=== PATIENT | male | born 1940 | race Asian ===

== ENCOUNTER 2024-09-03 09:05 | Emergency (ER) | payer OTHER, SELFPAY ==
[2024-09-03] VITALS (16 sets, daily range): BP systolic 137–160; BP diastolic 65–81; PULSE 92–103; RESP 16–18; TEMP 37.2; O2SAT 92–98
--- NOTE | 2024-09-03 09:31 | CRLHL7_ITS ---
For Patients: As a result of the 21st Century Cures Act, medical imaging exams and procedure reports are released immediately into your electronic medical record. You may view this report before your referring provider. If you have questions, please contact your health care provider. INDICATION: Left lower quadrant pain. Constipation. TECHNIQUE: Multiplanar CT examination of the abdomen and pelvis was performed after the administration of 68 mL Isovue 370 intravenous contrast. COMPARISON: None. FINDINGS: Motion degraded examination. Lower chest: No focal consolidation. Normal heart size. No pleural effusions or pneumothorax. Subsegmental and dependent atelectasis. Liver: Probable diffuse hepatic steatosis. Gallbladder: Unremarkable. Biliary: Unremarkable. Pancreas: Within normal limits. Spleen: Unremarkable. Adrenal glands: Unremarkable. Renal/ureters/bladder: Normal in size and symmetrically enhancing. No obstructive uropathy. No hydronephrosis or obstructive urinary calculi. Simple appearing renal hypodensities bilaterally, likely renal cysts. The ureters appear unremarkable. The bladder appears distended likely due to chronic outlet obstruction. Pelvis: Severe Prostatomegaly. Gastrointestinal: Small duodenal diverticulum. No bowel wall thickening or bowel obstruction. Normal appendix. Severe colorectal stool burden. No significant colonic diverticulosis. Vasculature: No aortic aneurysm. The portal vein remains patent. Mild atherosclerotic calcifications. Lymph nodes: No pathologic lymphadenopathy by size criteria. Peritoneum: No free fluid or pneumoperitoneum. No drainable fluid collections. Abdominal wall/soft tissues: Unremarkable. Bones: No acute osseous abnormalities. Multilevel degenerative changes of the visualized thoracolumbar spine. IMPRESSION: 1. Severe colorectal stool burden, compatible with constipation. 2. Severely enlarged prostate with suggestion of chronic outlet obstruction. 3. Otherwise, no other acute abdominopelvic pathology. Please note that all CT scans at this facility use dose modulation, iterative reconstruction, and/or weight-based dosing when appropriate to reduce radiation dose to as low as reasonably achievable. Dictated by Taras Gordillo MD @ 09/03/2024 11:34:20 AM (Electronically Signed)
--- NOTE | 2024-09-03 09:35 | ED.ABDPAIN ---
HPI - Abdominal Pain General Date Seen: 09/03/24 Chief Complaint: Abdominal Pain Stated Complaint: Bowel Movement Problems/Abd Pain Time Seen by Provider: 09/03/24 09:16 Source: patient Mode of arrival: ambulatory Limitations: language barrier History of Present Illness HPI narrative: Patient is an 84-year-old male presenting to the emergency department for constipation and abdominal pain. States he has been having issues with constipation for the past few weeks. Last abnormal bowel movement 3 weeks ago. This most recent bowel movement was a couple days ago that he states it was small and hard. States previously when he had constipation he came to the emergency department and an enema helped. Has been using stool softeners but only use them for week but she states on the box instructions said not to use for more than a week without doctor's orders. He is here with his son-in-law who states the patient total today pains during worsened that he needs to come to the emergency department. Denies fevers, chills, chest pain, shortness of breath, lightheadedness, dizziness, weakness, headache, vision changes, nausea/vomiting. Has been eating well. No other concerns noted. 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 Related Data Home Medications ?Medication ?Instructions ?Recorded ?Confirmed acetaminophen 325 mg capsule 325 mg PO Q6H PRN 09/03/24 09/03/24 amlodipine 10 mg tablet 10 mg PO DAILY 09/03/24 09/03/24 hydrochlorothiazide 25 mg tablet 12.5 mg PO DAILY 09/03/24 09/03/24 pravastatin 40 mg tablet 40 mg PO DAILY 09/03/24 09/03/24 tamsulosin 0.4 mg capsule 0.4 mg PO DAILY 09/03/24 09/03/24 Allergies Allergy/AdvReac Type Severity Reaction Status Date / Time No Known Drug Allergies Allergy Verified 09/03/24 11:04 Review of Systems Status of ROS Reports: 10 or more systems reviewed and unremarkable except as noted in History and below Exam Narrative: Exam Narrative: Const: Well-nourished, Well-developed, in mild distress Eyes: PERRL, no conjunctival injection, and symmetrical lids HENT: Atraumatic external nose and ears. Moist mucous membranes. Neck: Symmetric, trachea midline, No thyromegaly. CVS: RRR, No murmurs or gallops. Peripheral pulses 2+ and equal in all extremities RESP: Unlabored respiratory effort. Clear to auscultation bilaterally. GI: Mild lower abdominal tenderness worse on the left, lower abdominal distension, No rebound or guarding. MSK:Extremities w/o deformity, Normal Active ROM Skin: Warm, Dry. No rashes or lesions. Neuro: Normal Muscle tone, No focal neurological deficits. Psych: Awake, Alert, & Oriented x3. Appropriate mood and affect. Const: Vital Signs, click to edit/add: Vital Signs - 24 hr 09/03/24 09:09 09/03/24 11:44 09/03/24 11:56 Temperature 98.9 F 98.9 F Pulse Rate 98 Pulse Rate [Pulse Oximeter] 100 Respiratory Rate 16 18 Blood Pressure 137/65 Blood Pressure [Ri ght Upper Arm] 160/81 H Pulse Oximetry 97 95 96 Oxygen Delivery Me thod Room Air Course Vital Signs Vital signs: Initial Vital Signs Temperature 98.9 F 09/03/24 09:09 Temperature Source Temporal Artery Scan 09/03/24 09:09 Pulse Rate 100 09/03/24 09:09 Respiratory Rate 16 09/03/24 09:09 Blood Pressure 160/81 H 09/03/24 09:09 Blood Pressure Mean 107 H 09/03/24 09:09 Blood Pressure Position Sitting 09/03/24 09:09 Pulse Oximetry 97 09/03/24 09:09 Oxygen Delivery Method Room Air 09/03/24 09:09 Vital Signs Temperature 98.9 F 09/03/24 09:09 Pulse Rate 100 09/03/24 09:09 Respiratory Rate 16 09/03/24 09:09 Blood Pressure 160/81 H 09/03/24 09:09 Pulse Oximetry 97 09/03/24 09:09 Oxygen Delivery Method Room Air 09/03/24 09:09 Temperature 98.9 F 09/03/24 11:56 Pulse Rate 98 09/03/24 11:56 Respiratory Rate 18 09/03/24 11:56 Blood Pressure 137/65 09/03/24 11:56 Pulse Oximetry 96 09/03/24 11:56 Oxygen Delivery Method Room Air 09/03/24 09:09 Medications Administered Medications: Discontinued Medications Generic Name Dose Route Start Last Admin Trade Name Freq PRN Reason Stop Dose Admin Docusate Sodium/Benzocaine 5 ml 09/03/24 11:53 09/03/24 12:12 Docusate Sodium/Benzocaine 5 Ml Enema OR 09/03/24 11:54 5 ml ONCE ONE Administration Lactated Ringer's 1,000 mls @ 1,000 mls/hr 09/03/24 10:41 09/03/24 12:38 Lactated Ringers 1000 Ml IV 09/03/24 11:40 Infused .Q1H ONE Infusion Lidocaine HCl 6 ml 09/03/24 11:44 09/03/24 11:25 Lidocaine Hcl 2 % Jelly (Top) Sterile UR 09/03/24 11:45 6 ml ONCE ONE Administration MDM - Abdominal Pain MDM Narrative Medical decision making narrative: Patient is an 84-year-old male presenting to the emergency department for constipation abdominal pain. Will do a CT scan to better evaluate his pain and constipation. Also order CBC, CMP. Considering his age abdominal pain can be an abnormal presentation for ACS I will order an EKG and troponin. Lab work returned with white blood cell count of 14.64. Her he does meet SIRS criteria so lactate and blood cultures were added. Lactate came back elevated at 3.6 in fluids were given. Rest of CMP and CBC shows no concerning abnormalities. Creatinine appears to be at baseline. Although BUN does appear elevated. He is usually around 26 to 33 and is 41 today. EKG was reviewed by myself along with the troponin which showed no concerning findings. CT scan reviewed by myself and the radiologist does show some severe constipation he has also has quite a bit of urinary retention likely due to his enlarged prostate. The prostate does appear irregular in shape. His son-in-law does state he remembers hearing the patient having prostate cancer in the past but cannot say for certain. I had nursing staff place a Senior and 700 mL of fluid came out. I then did the rectal disimpaction and got out a large amount of stool. We will now do an enema. Patient states he is feeling much better and his symptoms have fully resolved after the Senior was placed. The urinary obstruction is likely the cause of his elevated BUN. After the Senior was placed we monitor for another 2 hours. He was also given a L of fluid. He had about 200 mL more of urinary drainage after this. His lactate has gone from 3.6 down to 2.1 and he is asymptomatic at this time. I see no other clear signs of infection. I do believe the urinary retention was causing most of his issues including the constipation as he could have been blocking his bladder. I recommended that he follow-up with his primary care provider in will leave the Senior in place until then. The patient and his son-in-law agree with this plan. At this point he is completely asymptomatic and doing well and is safe for discharge. I did inform to continue to continue to use stool softeners. Lab Data Labs: Lab Results 09/03/24 09/03/24 09/03/24 Range/Units 09:31 10:05 10:18 WBC 14.64 H (4.50-11.00) K/uL RBC 4.48 (4.30-5.90) m/uL Hgb 14.2 (13.5-17.5) gm/dL Hct 41.4 (37.0-53.0) % MCV 92 (80-100) fL MCH 32 (26-34) pg MCHC 34 (32-36) gm/dL RDW Coeff of Julissa 12.9 (11.5-15.5) % Plt Count 266 (140-440) K/uL Neut % (Auto) 83.2 H (42.0-72.0) % Lymph % (Auto) 9.5 L (20-44) % [place] % (Auto) 7.0 (0.0-11.0) % Eos % (Auto) 0.1 (0.0-7.0) % Baso % (Auto) 0.1 (0.0-3.0) % Neut # (Auto) 12.20 H (1.7-7.0) K/uL Lymph # (Auto) 1.40 (0.90-2.90) K/uL [place] # (Auto) 1.00 H (0.00-0.90) K/UL Eos # (Auto) 0.00 (0.00-0.50) K/uL Baso # (Auto) 0.00 (0.00-0.30) K/uL Abs Immat Gran (auto) 0.00 (0.00-0.30) K/uL Imm/Tot Granulo (auto) 0.1 % Sodium 136 (135-149) mmol/L Potassium 3.2 L (3.6-5.1) mmol/L Chloride 96 (96-114) mmol/L Carbon Dioxide 28 (20-32) mmol/L Anion Gap 12 (7-15) mEq/L BUN 41 H (7-30) mg/dL Creatinine 1.3 (0.5-1.5) mg/dL Estimated GFR 54 ml/min Glucose 163 H (60-115) mg/dL Lactate (0.5-1.9) mmol/L Calcium 9.5 (8.4-10.6) mg/dL Total Bilirubin 1.0 (0.1-1.5) mg/dL AST 36 H (12-35) U/L ALT 22 (4-50) U/L Alkaline Phosphatase 77 (40-150) U/L Troponin I 0.01 (0.01-0.04) ng/mL Total Protein 7.9 (6.0-8.3) g/dL Albumin 4.8 (3.3-5.0) g/dL Urine Color (Yellow) Urine Appearance (Clear) Urine pH (5.0-8.5) Ur Specific Eleva (1.000-1.030) Urine Protein (Negative) Urine Glucose (UA) (Negative) Urine Ketones (Negative) Urine Blood (Negative) Urine Nitrite (Negative) Urine Bilirubin (Negative) Urine Urobilinogen (0.2-1.0) Ur Leukocyte Esterase (Negative) Urine RBC (0-2) Urine WBC (0-5) Ur Squamous Epith Cells (None-Few) Urine Bacteria (None) Lab Acknowledgement New Spec Needed POC Creatinine 1.5 H (0.6-1.3) mg/dl 09/03/24 09/03/24 09/03/24 Range/Units 10:32 11:50 12:47 WBC (4.50-11.00) K/uL RBC (4.30-5.90) m/uL Hgb (13.5-17.5) gm/dL Hct (37.0-53.0) % MCV (80-100) fL MCH (26-34) pg MCHC (32-36) gm/dL RDW Coeff of Julissa (11.5-15.5) % Plt Count (140-440) K/uL Neut % (Auto) (42.0-72.0) % Lymph % (Auto) (20-44) % [place] % (Auto) (0.0-11.0) % Eos % (Auto) (0.0-7.0) % Baso % (Auto) (0.0-3.0) % Neut # (Auto) (1.7-7.0) K/uL Lymph # (Auto) (0.90-2.90) K/uL [place] # (Auto) (0.00-0.90) K/UL Eos # (Auto) (0.00-0.50) K/uL Baso # (Auto) (0.00-0.30) K/uL Abs Immat Gran (auto) (0.00-0.30) K/uL Imm/Tot Granulo (auto) % Sodium (135-149) mmol/L Potassium (3.6-5.1) mmol/L Chloride (96-114) mmol/L Carbon Dioxide (20-32) mmol/L Anion Gap (7-15) mEq/L BUN (7-30) mg/dL Creatinine (0.5-1.5) mg/dL Estimated GFR ml/min Glucose (60-115) mg/dL Lactate 3.6 H 2.1 H (0.5-1.9) mmol/L Calcium (8.4-10.6) mg/dL Total Bilirubin (0.1-1.5) mg/dL AST (12-35) U/L ALT (4-50) U/L Alkaline Phosphatase (40-150) U/L Troponin I (0.01-0.04) ng/mL Total Protein (6.0-8.3) g/dL Albumin (3.3-5.0) g/dL Urine Color Yellow (Yellow) Urine Appearance Clear (Clear) Urine pH 7.0 (5.0-8.5) Ur Specific Eleva 1.015 (1.000-1.030) Urine Protein Negative (Negative) Urine Glucose (UA) Negative (Negative) Urine Ketones Negative (Negative) Urine Blood 2+ A (Negative) Urine Nitrite Negative (Negative) Urine Bilirubin Negative (Negative) Urine Urobilinogen 0.2 (0.2-1.0) Ur Leukocyte Esterase Negative (Negative) Urine RBC 50-100 A (0-2) Urine WBC 0-2 (0-5) Ur Squamous Epith Cells None (None-Few) Urine Bacteria None (None) Lab Acknowledgement POC Creatinine (0.6-1.3) mg/dl Imaging Data CT scan abdomen and pelvis: Attestation: I have reviewed the pertinent imaging results. Radiologist's impression: 1. Severe colorectal stool burden, compatible with constipation. 2. Severely enlarged prostate with suggestion of chronic outlet obstruction. 3. Otherwise, no other acute abdominopelvic pathology. Please note that all CT scans at this facility use dose modulation, iterative reconstruction, and/or weight-based dosing when appropriate to reduce radiation dose to as low as reasonably achievable. Dictated by Taras Gordillo MD @ 09/03/2024 11:34:20 AM ECG Data Attestation: I personally reviewed and interpreted this ECG as follows: Prior ECG tracings: not available for review Interpretation: Sinus tachycardia with a rate of 106 beats per minute, normal intervals, normal axis, no ST or T-wave abnormalities. Discharge Plan Discharge Clinical Impression: Lower urinary tract obstruction, Enlarged prostate Constipation Qualifiers: Constipation type: unspecified constipation type Qualified Code(s): K59.00 - Constipation, unspecified Patient Disposition: Home, Self-Care Condition: Improved Instructions: Constipation (DC), Enlarged Prostate (BPH) (ED) Additional Instructions: I believe your constipation and pain was all related to your urinary retention. You have a large prostate that is likely blocking your urethra. Follow-up with the primary care provider as soon as possible about your urinary retention. They may refer you to urology. Return to emergency department for new or worsening symptoms. Prescriptions: No Action hydrochlorothiazide 25 mg tablet 12.5 mg PO DAILY tamsulosin 0.4 mg capsule 0.4 mg PO DAILY amlodipine 10 mg tablet 10 mg PO DAILY pravastatin 40 mg tablet 40 mg PO DAILY acetaminophen 325 mg capsule 325 mg PO Q6H PRN Follow Up/Referrals: Provider,Not a Local [Primary Care Provider] - Stand Alone Forms: [facility] Info Instructions
[2024-09-03 10:11] LABS: Basophils Percent Auto 0.1 % (0.0-3.0); Eosinophils Percent Auto 0.1 % (0.0-7.0); Hematocrit 41.4 % (37.0-53.0); Hemoglobin* 14.2 gm/dL (13.5-17.5); Immature Granulocytes Pct Auto 0.1 %; Lymphocytes Percent Auto 9.5 % (20-44); Mean Corpuscular HGB Conc 34 gm/dL (32-36); Mean Corpuscular Hemoglobin 32 pg (26-34); Mean Corpuscular Volume 92 fL (80-100); Neutrophils Percent Auto 83.2 % (42.0-72.0); Platelet Count* 266 K/uL (140-440); RDW Coefficient of Variation % 12.9 % (11.5-15.5); Red Blood Count 4.48 m/uL (4.30-5.90); White Blood Count* 14.64 K/uL (4.50-11.00)
[2024-09-03 10:12] LABS: Creatinine, Point-of-Care* 1.5 mg/dl (0.6-1.3)
[2024-09-03 10:16] LABS: Slide Review Reflex No
[2024-09-03 10:22] LABS: Lab Add On Test New Spec Needed
[2024-09-03 10:24] LABS: Albumin* 4.8 g/dL (3.3-5.0); Chloride* 96 mmol/L (96-114)
[2024-09-03 10:25] LABS: Potassium* 3.2 mmol/L (3.6-5.1); Sodium* 136 mmol/L (135-149)
[2024-09-03 10:27] LABS: Anion Gap 12 mEq/L (7-15); Carbon Dioxide* 28 mmol/L (20-32); Creatinine* 1.3 mg/dL (0.5-1.5); Estimated Glomerular Filt Rate 54 ml/min
[2024-09-03 10:28] LABS: Alanine Aminotransferase* 22 U/L (4-50); Alkaline Phosphatase* 77 U/L (40-150); Aspartate Amino Transferase* 36 U/L (12-35); Blood Urea Nitrogen* 41 mg/dL (7-30); Calcium* 9.5 mg/dL (8.4-10.6); Glucose* 163 mg/dL (60-115); Total Protein* 7.9 g/dL (6.0-8.3)
[2024-09-03 10:38] LABS: Lactate* 3.6 mmol/L (0.5-1.9)
[2024-09-03 10:40] LABS: Troponin I* 0.01 ng/mL (0.01-0.04)
[2024-09-03] MEDS: LACTATED RINGERS 1000 ML 1,000 ML IV (11:01)
[2024-09-03] MEDS: lidocaine HCL 2 % JELLY (TOP) STERILE 6 ML UR (11:25)
[2024-09-03 11:59] LABS: Appearance Urine Clear (Clear); Bilirubin Urine Negative (Negative); Blood Urine 2+ (Negative); Color Urine Yellow (Yellow); Glucose Urine Negative (Negative); Ketones Urine Negative (Negative); Leukocyte Esterase Urine Negative (Negative); Nitrite Urine Negative (Negative); Protein Urine Negative (Negative); Specific Gravity Urine 1.015 (1.000-1.030); Urobilinogen Urine 0.2 (0.2-1.0)
[2024-09-03] MEDS: DOCUSATE SODIUM/BENZOCAINE 5 ML ENEMA PR (12:12)
[2024-09-03 12:17] LABS: RBC Urine 50-100 (0-2); WBC Urine 0-2 (0-5)
[2024-09-03 12:54] LABS: Lactate Sepsis w/Reflex* 2.1 mmol/L (0.5-1.9)
== END 2024-09-03 14:08 | disposition home or self-care (01) ==
PROVIDERS: Emergency Provider Student in an Organized Health Care Education/Training Program
DX: N13.9 Obstructive and reflux uropathy, unspecified (principal); N40.1 Benign prostatic hyperplasia with lower urinary tract symptoms
CPT/HCPCS: 36415; 74177; 80053; 81001; 82565; 83605; 84484; 85025; 87040; 93005; 94761; 99285; A9270; J7120; Q9967

== ENCOUNTER 2024-09-14 15:46 | Outpatient (CLI) | payer OTHER, SELFPAY | END 2024-09-14 15:47 | disposition home or self-care (01) | LOC: LKVREF 15:50 | PROVIDERS: PCP Family Medicine; Visit Provider Family Medicine | DX: D64.9 Anemia, unspecified (principal); E03.9 Hypothyroidism, unspecified; R53.83 Other fatigue; I48.91 Unspecified atrial fibrillation | CPT/HCPCS: 80048; 84443 ==

== ENCOUNTER 2024-09-16 16:28 | Outpatient (CLI) | payer OTHER, SELFPAY | END 2024-09-16 16:29 | disposition home or self-care (01) | LOC: NFLDREF 09-25 05:51 | PROVIDERS: PCP Family Medicine; Referring Provider Family Medicine; Visit Provider Family Medicine | DX: R33.9 Retention of urine, unspecified (principal); R82.90 Unspecified abnormal findings in urine | CPT/HCPCS: 87086 ==

== ENCOUNTER 2024-12-26 21:25 | Emergency (ER) | payer OTHER, SELFPAY ==
--- OUTSIDE RECORDS SUMMARY | 2024-12-26 21:27 | XMS_ITS ---
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
--- OUTSIDE RECORDS SUMMARY | 2024-12-26 21:27 | XMS_ITS | Encounter Summary ---
Author Organization [facility] Address [address] [facility] [place] [address] Care Team Providers Care Fish Grader Name Role Phone No Ref-Primary, Physician Primary Care Provider Estefani Bob DO Primary Care Provider [phone] Encounter Details Date Type Department Care Team (Late st Contact Info) Description 09/03/2024 External Order Results [facility] [address] [place] [address] Outside, Provider Social History Tobacco Use Types Packs/Day Years Used Date Smoking Tobacco: Never Alcohol Use Standard Drinks/Week Comments No 0 (1 standard drink = 0.6 oz pur e alcohol) Adolescent Education Answer Date Record ed Getting School Help Needed Not on file 06/09 Sex and Gender Information Value Date Recorded Sex Assigned at Not on file Legal Sex Male 4:30 AM ASSOCIATE PROGRAMMER Gender Identity Not on file Sexual Orientation Not on file documented as of this encounter Plan of Treatment Not on file documented as of this encounter Procedures Procedure Name Priority Date/Time Associated Diagnosis Comments LACTIC ACID WHOLE BLOOD Routine 09/03/2024 12:47 PM ASSOCIATE PROGRAMMER ROUTINE UA WITH MICROSCOPIC Routine 09/03/2024 11:50 AM ASSOCIATE PROGRAMMER EXTERNAL CULTURE RESULTS Routine 09/03/2024 10:32 AM ASSOCIATE PROGRAMMER LACTIC ACID WHOLE BLOOD Routine 09/03/2024 10:32 AM ASSOCIATE PROGRAMMER CBC WITH PLATELETS & DIFFERENTIAL Routine 09/03/2024 10:05 AM ASSOCIATE PROGRAMMER EXTERNAL LAB RESULTS Routine 09/03/2024 10:05 AM ASSOCIATE PROGRAMMER HEPATIC FUNCTION PANEL Routine 09/03/2024 10:05 AM ASSOCIATE PROGRAMMER BASIC METABOLIC PANEL Routine 09/03/2024 10:05 AM ASSOCIATE PROGRAMMER CREATININE Routine 09/03/2024 9:31 AM ASSOCIATE PROGRAMMER documented in this encounter Results * (ABNORMAL) Lactic acid whole blood (09/03/2024 12:47 PM ASSOCIATE PROGRAMMER) Pathologist [facility] Lactic Acid (External) 2.1(H) 0.5 - 1.9 mmol/L NON-INTERFACED (ONBASE SCANS) Comment:Lactate Sepsis Blood BLOOD SPECIMEN / Unknown 09/03/2024 12:47 PM ASSOCIATE PROGRAMMER Narrative JAIMEE PFT - 09/15/2024 2:03 PM ASSOCIATE PROGRAMMER Verified by Chad Osei on 09/15/2024. us Provider Outside LAB - BLOOD ORDERABLES Edited R esult - Final JAIMEE PFT NON-INTERFACED (ONBASE SCANS) * (ABNORMAL) UA with Microscopic (09/03/2024 11:50 AM ASSOCIATE PROGRAMMER) Pathologist [facility] Color Urine (External) Yellow Yellow NON-INTERFAC ED (ONBASE SCANS) Appearance Urine (External) Clear Clear NON-INTERFAC ED (ONBASE SCANS) Glucose Urine (External) Negative Negative NON-INTERFAC ED (ONBASE SCANS) Bilirubin Urine (External) Negative Negative NON-INTERFAC ED (ONBASE SCANS) Ketones Urine (External) Negative Negative NON-INTERFAC ED (ONBASE SCANS) Specific [place] Urine (External) 1.015 1.000 - 1.030 NON-INTERFAC ED (ONBASE SCANS) Blood Urine (External) 2+(A) Negative NON-INTERFAC ED (ONBASE SCANS) pH Urine (External) 7.0 5.0 - 8.5 NON-INTERFAC ED (ONBASE SCANS) Protein Albumin Ur (External) Negative Negative NON-INTERFAC ED (ONBASE SCANS) Urobilinogen (External) 0.2 0.2 - 1.0 NON-INTERFAC ED (ONBASE SCANS) Nitrites Urine (External) Negative Negative NON-INTERFAC ED (ONBASE SCANS) Leukocyte Esterase Urine (External) Negative Negative NON-INTERFAC ED (ONBASE SCANS) RBC Urine (External) 50-100(A) 0 - 2 NON-INTERFAC ED (ONBASE SCANS) WBC Urine (External) 0-2 0 - 5 NON-INTERFAC ED (ONBASE SCANS) Squamous Epithelial Urine (External) None None-few NON-INTERFAC ED (ONBASE SCANS) Bacteria Urine (External) None None NON-INTERFAC ED (ONBASE SCANS) Urine 09/03/2024 11:5 0 AM ASSOCIATE PROGRAMMER Narrative BREEZE PFT - 09/15/2024 2:18 PM ASSOCIATE PROGRAMMER Verified by Carol Anthony on 09/15/2024. us Provider Outside LAB - URINE ORDERABLES Edited R esult - Final BREEZE PFT NON-INTERFACED (ONBASE SCANS) * External Culture Results (09/03/2024 10:32 AM ASSOCIATE PROGRAMMER) Scan Culture Results (External) See Scanned Report NON-INTERFACE D (ONBASE SCANS) Comment:Blood Culture Final 09/03/2024 10:3 2 AM ASSOCIATE PROGRAMMER Narrative BREEZE PFT - 09/15/2024 2:03 PM ASSOCIATE PROGRAMMER Verified by Chad Osei on 09/15/2024. us Provider Outside LABORATORY Edited Result - Final BREEZE PFT NON-INTERFACED (ONBASE SCANS) * (ABNORMAL) Lactic acid whole blood (09/03/2024 10:32 AM ASSOCIATE PROGRAMMER) Lactic Acid (External) 3.6(H) 0.5 - 1.9 mmol/L NON-INTERFACED (ONBASE SCANS) Blood BLOOD SPECIMEN / Unknown 09/03/2024 10:32 AM ASSOCIATE PROGRAMMER Preston HERMOSILLO PFT - 09/15/2024 2:03 PM ASSOCIATE PROGRAMMER Verified by Chad Osei on 09/15/2024. us Provider Outside LAB - BLOOD ORDERABLES Edited R esult - Final JAIMEE PFT NON-INTERFACED (ONBASE SCANS) * External Lab Results (09/03/2024 10:05 AM ASSOCIATE PROGRAMMER) Troponin I (External) 0.01 0.01 - 0.04 NG/Ml NON-INTERFACED (ONBASE SCANS) 09/03/2024 10:0 5 AM ASSOCIATE PROGRAMMER Narrative HAFSAE PFT - 09/15/2024 2:18 PM ASSOCIATE PROGRAMMER Verified by Carol Anthony on 09/15/2024. us Provider Outside LABORATORY Edited Result - Final JAIMEE PFT NON-INTERFACED (ONBASE SCANS) * (ABNORMAL) CBC with Platelets & Differential (09/03/2024 10:05 AM ASSOCIATE PROGRAMMER) WBC Count (External) 14.64(H) 4.50 - 11.00 K/uL NON-INTERFACE D (ONBASE SCANS) RBC Count (External) 4.48 4.30 - 5.90 m/uL NON-INTERFACE D (ONBASE SCANS) Hemoglobin (External) 14.2 13.5 - 17.5 gm/dL NON-INTERFACE D (ONBASE SCANS) Hematocrit (External) 41.4 37.0 - 53.0 % NON-INTERFACE D (ONBASE SCANS) MCV (External) 92 80 - 100 fL NON-INTERFACE D (ONBASE SCANS) MCH (External) 32 26 - 34 ML NON-INTERFACE D (ONBASE SCANS) MCHC (External) 34 32 - 36 gm/dL NON-INTERFACE D (ONBASE SCANS) Platelet Count (External) 266 140 - 440 K/uL NON-INTERFACE D (ONBASE SCANS) RDW (External) 12.9 11.5 - 15.5 % NON-INTERFACE D (ONBASE SCANS) % Neutrophils (External) 83.2(H) 42.0 - 72.0 % NON-INTERFACE D (ONBASE SCANS) % Lymphocytes (External) 9.5(L) 20 - 44 % NON-INTERFACE D (ONBASE SCANS) % Monocytes (External) 7.0 0.0 - 11.0 % NON-INTERFACE D (ONBASE SCANS) % Eosinophils (External) 0.1 0.0 - 7.0 % NON-INTERFACE D (ONBASE SCANS) % Basophils (External) 0.1 0.0 - 3.0 % NON-INTERFACE D (ONBASE SCANS) % Immature Granulocytes (External) 0.1 % NON-INTERFACE D (ONBASE SCANS) Absolute Neutrophils (External) 12.20(H) 1.7 - 7.0 K/uL NON-INTERFACE D (ONBASE SCANS) Absolute Lymphocytes (External) 1.40 0.90 - 2.90 K/uL NON-INTERFACE D (ONBASE SCANS) Absolute Monocytes (External) 1.00(H) 0.00 - 0.90 K/UL NON-INTERFACE D (ONBASE SCANS) Absolute Eosinophils (External) 0.00 0.00 - 0.50 K/uL NON-INTERFACE D (ONBASE SCANS) Absolute Basophils (External) 0.00 0.00 - 0.30 K/uL NON-INTERFACE D (ONBASE SCANS) Absolute Immature Granulocytes (External) 0.00 0.00 - 0.30 K/uL NON-INTERFACE D (ONBASE SCANS) Blood BLOOD SPECIMEN / Unknown 09/03/2024 10:05 AM ASSOCIATE PROGRAMMER Narrative JAIMEE PFT - 09/15/2024 2:18 PM ASSOCIATE PROGRAMMER Verified by Carol Anthony on 09/15/2024. us Provider Outside LAB - BLOOD ORDERABLES Klaus R esult - Final JAIMEE PFT NON-INTERFACED (ONBASE SCANS) * (ABNORMAL) Basic metabolic panel (09/03/2024 10:05 AM ASSOCIATE PROGRAMMER) Sodium (External) 136 135 - 149 mmol/L NON-INTERFACED (ONBASE SCANS) Potassium (External) 3.2(L) 3.6 - 5.1 mmol/L NON-INTERFACED (ONBASE SCANS) Chloride (External) 96 96 - 114 mmol/L NON-INTERFACED (ONBASE SCANS) CO2 (External) 28 20 - 32 mmol/L NON-INTERFACED (ONBASE SCANS) Anion Gap (External) 12 7 - 15 mEq/L NON-INTERFACED (ONBASE SCANS) Urea Nitrogen (External) 41(H) 7 - 30 mg/dL NON-INTERFACED (ONBASE SCANS) Creatinine (External) 1.3 0.5 - 1.5 mg/dL NON-INTERFACED (ONBASE SCANS) GFR Estimated (External) 54 mL/min NON-INTERFACED (ONBASE SCANS) Calcium (External) 9.5 8.4 - 10.6 mg/dL NON-INTERFACED (ONBASE SCANS) Glucose (External) 163(H) 60 - 115 mg/dL NON-INTERFACED (ONBASE SCANS) Blood BLOOD SPECIMEN / Unknown 09/03/2024 10:05 AM ASSOCIATE PROGRAMMER Narrative JAIMEE PFT - 09/15/2024 2:18 PM ASSOCIATE PROGRAMMER Verified by Carol Anthony on 09/15/2024. us Provider Outside LAB - BLOOD ORDERABLES Edited R esult - Final JAIMEE PF NON-INTERFACED (ONBASE SCANS) * (ABNORMAL) Hepatic function panel (09/03/2024 10:05 AM ASSOCIATE PROGRAMMER) Protein Total (External) 7.9 6.0 - 8.3 g/dL NON-INTERFACED (ONBASE SCANS) Albumin (External) 4.8 3.3 - 5.0 g/dL NON-INTERFACED (ONBASE SCANS) Bilirubin Total (External) 1.0 0.1 - 1.5 mg/dL NON-INTERFACED (ONBASE SCANS) AST (External) 36(H) 12 - 35 U/L NON-INTERFACED (ONBASE SCANS) ALT (External) 22 4 - 50 U/L NON- INTERFACED (ONBASE SCANS) Alk Phosphatase (External) 77 40 - 150 U/L NON-INTERFACED (ONBASE SCANS) Blood BLOOD SPECIMEN / Unknown 09/03/2024 10:05 AM ASSOCIATE PROGRAMMER Narrative [facility]ZE PFT - 09/15/2024 2:18 PM ASSOCIATE PROGRAMMER Verified by Carol Anthony on 09/15/2024. Provider Outside LAB - BLOOD ORDERABLES Edited R [employer] Active-Semi NILSONEZFariha PFT NON-INTERFACED (ONBASE SCANS) * (ABNORMAL) Creatinine (09/03/2024 9:31 AM ASSOCIATE PROGRAMMER) Creatinine (External) 1.5(H) 0.6 - 1.3 mg/dL NON-INTERFACED (ONBASE SCANS) Blood BLOOD SPECIMEN / Unknown 09/03/2024 9:31 AM ASSOCIATE PROGRAMMER Narrative BREEZE PFT - 09/15/2024 2:03 PM ASSOCIATE PROGRAMMER Verified by Chad Osei on 09/15/2024. Provider Outside LAB - BLOOD ORDERABLES Edited R [employer] JAIMEE PFT NON-INTERFACED (ONBASE SCANS) documented in this encounter Visit Diagnoses Not on filedocumented in this encounter Care Teams Fish Grader Relationship Specialty Start Date End Date No Ref-Primary, Physician PCP - General 09/05/24 11/17/24 [place] [address] [place] [address] PCP - General Family Medicine 11/18/24 documented as of this encounter
--- OUTSIDE RECORDS SUMMARY | 2024-12-26 21:27 | XMS_ITS | Clinical Summary ---
Author Organization [facility] Address [address] [facility] [place] [address] Care Team Providers Care Business Support Professional Name Role Phone Estefani Bob DO Primary Care Provider [phone] Allergies Active Allergy Reactions Criticality Noted Date Comments No Known Drug Allergy 06/09/2003 Medications amLODIPine (NORVASC) 10 MG tablet Take 10 mg by mouth every evening. Active cyanocobalamin (VITAMIN B-12) 1000 MCG tablet Take 1,000 mcg by mouth every evening. Active pravastatin (PRAVACHOL) 40 MG tablet Take 40 mg by mouth every evening. Active tamsulosin (FLOMAX) 0.4 MG capsule Take 0.4 mg by mouth every evening. Active niacin 500 MG tablet Take 500 mg by mouth every evening. Active metoprolol succinate ER (TOPROL XL) 25 MG 24 hr tabletIndications :Atrial fibrillation with RVR (H) Take 0.5 tablets (12.5 mg) by mouth daily. 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 Provider to review and confirm. Encounters Date Type Department Care Team Description 11/18/2024 9:52 AM CDT - 11/20/2024 4:25 PM CDT Hospital Encounter [facility] [place] [address] [facility] [address] [place] [address] Arian Rodriguez MD Singla, Manit, MD Zellmer, Lucas J, MD Atrial fibrillation with RVR (H) (Primary Dx); Acute UTI; Acute kidney injury Discharge Disposition: Home or Self Care 11/18/2024 Travel from Last 3 Months Immunizations Name Administration Dates Next Due Influenza (IIV3) PF 06/17/2006,07/19/2004,2002 Influenza Vaccine 65+ (Fluzone HD) 06/24/2020 Pneumococcal 23 valent 04/30/2006 TD,PF 7+ (Tenivac) 02/22/2010 Family History Medical History Relation Comments Family History Negative Daughter b.1968/b .1967/b.1966 Family History Negative Father at age 38, in [place] Family History Negative Mother at age 81, natural causes Family History Negative Sister b.1933/b .1940 Family History Negative Son b.1972/b .1968 Relation Status Comments Daughter Father Mother Sister Son Social History Tobacco Use Types Packs/Day Years Used Date Smoking Tobacco: Never Alcohol Use Standard Drinks/Week Comments No 0 (1 standard drink = 0.6 oz pur e alcohol) Adolescent Education Answer Date Record ed Getting School Help Needed Not on file 06/09 Food Insecurity Answer Date Recorded Within the past 12 months, d id you worry that your food would run out before you got money to buy more? No 11/18/2024 Within the past 12 months, d id the food you bought just not last and you didn t have money to get more? No 11/18/2024 Housing Stability Answer Date Recorded Do you have housing? (Karenin g is defined as stable permanent housing and does not include staying outside in a car, in a tent, in an abandoned building, in an overnight intermediate, or couch-surfing.) No 11/18/2024 Are you worried about losing your housing? Yes 11/18/2024 Financial Resource Strain Answer Date R ecorded Within the past 12 months, h ave you or your family members you live with been unable to get utilities (heat, electricity) when it was really needed? No 11/18/2024 Transportation Needs Answer Date Record ed Within the past 12 months, h as lack of transportation kept you from medical appointments, getting your medicines, non-medical meetings or appointments, work, or from getting things that you need? No 11/18/2024 Interpersonal Safety Answer Date Record ed Do you feel physically and e motionally safe where you currently live? No 11/18/2024 Within the past 12 months, h ave you been hit, slapped, kicked or otherwise physically hurt by someone? No 11/18/2024 Within the past 12 months, h ave you been humiliated or emotionally abused in other ways by your partner or ex-partner? 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 Gender Identity Not on file Sexual Orientation Not on file Last Filed Vital Signs Vital Sign Reading Time Taken Comments Blood Pressure 106/53 11/20/2024 11:41 AM CDT Pulse 58 11/20/2024 11:41 AM CDT Temperature 36.7 C (98 F) 11/20/2024 11:41 AM CDT Respiratory Rate 16 11/20/2024 11:4 1 AM CDT Oxygen Saturation 95% 11/20/2024 11: 41 AM CDT Inhaled Oxygen Concentration - - Weight 47.1 kg (103 lb 13.4 oz) 11/18/2024 5:01 PM CDT Height 160 cm (5' 3) 11/18/2024 5:01 PM CDT Body Mass Index 18.39 11/18/2024 5:01 PM CDT Plan of Treatment Health Maintenance Due Date Last Done Comments ADVANCE CARE PLANNING 1940 ANNUAL REVIEW OF HM ORDERS 1939 CT COLONOGRAPHY 1939 FLEX SIG 1939 sDNA (Cologuard) 1939 COLONOSCOPY 1949 ZOSTER IMMUNIZATION (1 of 2) 1989 FALL RISK ASSESSMENT 2004 LIPID 06/08/2010 03/08/2010, 06, 08/04/2007, Additional history exists COLORECTAL CANCER SCREENING 02/24/2011 FIT 02/24/2011 02/24/2010 RSV VACCINE (1 - 1-dose 75+ series) 2014 Pneumococcal Vaccine: 50+ Years (2 of 2 - PPSV23) 06/30/2015 05/05/2015, 04/30/2006 COVID-19 Vaccine ( season) 2024 07/13/2022, 06/15/2021, 10/04/2020, Additional history exists PHQ-2 (once per calendar year) 2024 MEDICARE ANNUAL WELLNESS VISIT 01/22/2025 01/23/2024, 01/03/2023, 10/23/2021, Additional history exists ALT 02/18/2025 11/18/2024, 08/26, 09/03/2024, Additional history exists BMP 11/20/2025 11/20/2024, 10/25, 11/18/2024, Additional history exists DTAP/TDAP/TD IMMUNIZATION (2 - Td or Tdap) 01/29/2033 01/29/2023, 02/22/2010 INFLUENZA VACCINE Completed 06/19/2024, , 07/04/2023, Additional history exists HPV IMMUNIZATION Aged Out No longer e ligible based on patient's age to complete this topic MENINGITIS IMMUNIZATION Aged Out No l onger eligible based on patient's age to complete this topic Procedures Procedure Name Priority Date/Time Associated Diagnosis Comments CBC WITH PLATELETS Routine 11/20/2024 9: 42 AM CDT BASIC METABOLIC PANEL Routine 11/20/2024 9:42 AM CDT PHOSPHORUS Routine 11/20/2024 9:42 AM CDT MAGNESIUM Routine 11/20/2024 9:42 AM CDT URINE CULTURE Routine 11/19/2024 9:27 AM CDT UA MACROSCOPIC WITH REFLEX TO MICRO AND CULTURE Routine 11/19/2024 9:27 AM CDT EKG 12-LEAD, TRACING ONLY STAT 11/19/2024 9:22 AM CDT MAGNESIUM Routine 11/19/2024 9:20 AM CDT PHOSPHORUS Routine 11/19/2024 9:20 AM CDT CBC WITH PLATELETS Routine 11/19/2024 9: 20 AM CDT BASIC METABOLIC PANEL Routine 11/19/2024 9:20 AM CDT MAGNESIUM STAT 11/18/2024 8:28 PM CDT POTASSIUM STAT 11/18/2024 8:28 PM CDT EKG 12-LEAD, TRACING ONLY Routine 11/18/2024 6:55 PM CDT EKG 12-LEAD, TRACING ONLY STAT 11/18/2024 6:54 PM CDT URINE CULTURE STAT 11/18/2024 10:21 AM CDT ROUTINE UA WITH MICROSCOPIC REFLEX TO CULTURE STAT 11/18/2024 10:21 AM CDT CBC WITH PLATELETS & DIFFERENTIAL STAT 11/18/2024 10:19 AM CDT PHOSPHORUS Add-On 11/18/2024 10:19 AM CDT MAGNESIUM Add-On 11/18/2024 10:19 AM CDT CBC WITH PLATELETS AND DIFFERENTIAL STAT 11/18/2024 10:19 AM CDT LACTIC ACID WHOLE BLOOD WITH 1X REPEAT IN 2 HR WHEN >2 STAT 11/18/2024 10:19 AM CDT COMPREHENSIVE METABOLIC PANEL STAT 11/18/2024 10:19 AM CDT EKG 12-LEAD, TRACING ONLY STAT 11/18/2024 10:18 AM CDT CL AFF A.M.A. LIPID PANEL Routine 03/08/2010 9:28 AM CDT Pure Hypercholesterolemia ZZCL FECAL COLORECTAL CANCER SCN-FIT Routine 02/24/2010 7:00 AM CDT Routine General Medical Examination at a [facility] Facility from Last 3 Months or Most Recently Relevant to Health Maintenance Results * (ABNORMAL) Phosphorus (11/20/2024 9:42 AM CDT) Only the most recent of3 resultswithin the time period is included. Phosphorus 2.4(L) 2.5 - 4.5 mg/dL 11/20/2024 10:10 AM CDT LABORATORY Blood BLOOD SPECIMEN / Unknown Venipuncture / Unknown 11/20/2024 9:42 AM CDT 11/20/2024 9:50 AM CDT Carlton Sultana MD LAB - BLOOD ORDERABLES Final Result LABORATORY [facility] [address], [address] [place] [address], [facility] [phone] * Magnesium (11/20/2024 9:42 AM CDT) Only the most recent of4 resultswithin the time period is included. Magnesium 2.0 1.7 - 2.3 mg/dL 11/20/2024 10:10 AM CDT LABORATORY Blood BLOOD SPECIMEN / Unknown Venipuncture / Unknown 11/20/2024 9:42 AM CDT 11/20/2024 9:50 AM CDT Carlton Sultana MD LAB - BLOOD ORDERABLES Final Result LABORATORY [facility] [address], [address] [place] [address], [facility] [phone] * (ABNORMAL) Basic metabolic panel (11/20/2024 9:42 AM CDT) Only the most recent of2 resultswithin the time period is included. [facility] Signature Sodium 136 135 - 145 mmol/L 11/20/2024 10:10 AM CDT LABORATORY Potassium 4.3 3.4 - 5.3 mmol/L 11/20/2024 10:10 AM CDT LABORATORY Chloride 101 98 - 107 mmol/L 11/20/2024 10:10 AM CDT LABORATORY Carbon Dioxide (CO2) 26 22 - 29 mmol/L 11/20/2024 10:10 AM [facility] LABORATORY Anion Gap 9 7 - 15 mmol/L 11/20/2024 10:10 AM CDT LABORATORY Urea Nitrogen 28.7(H) 8.0 - 23.0 mg/dL 11/20/2024 10:10 AM CDT LABORATORY Creatinine 1.15 0.67 - 1.17 mg/dL 11/20/2024 10:10 AM CDT LABORATORY GFR Estimate 62 >60 mL/min/1.7 3m2 11/20/2024 10:10 AM T LABORATORY Comment:eGFR calculated usin 2020 CKD-EPI equation. Calcium 8.8 8.8 - 10.4 mg/dL 11/20/2024 10:10 AM T LABORATORY Glucose 162(H) 70 - 99 mg/dL 11/20/2024 10:10 AM T LABORATORY Blood BLOOD SPECIMEN / Unknown Venipuncture / Unknown 11/20/2024 9:42 AM CDT 11/20/2024 9:50 AM CDT us Carlton Sultana MD LAB - BLOOD ORDERABLES Final Result LABORATORY [facility] [address], [address] [place] [address], [facility] [phone] * (ABNORMAL) CBC with platelets (11/20/2024 9:42 AM CDT) Only the most recent of2 resultswithin the time period is included. WBC Count 7.3 4.0 - 11.0 10e3/uL 11/20/2024 9:53 AM CDT LABORATORY RBC Count 3.37(L) 4.40 - 5.90 10e6/uL 11/20/2024 9:53 AM CDT LABORATORY Hemoglobin 10.6(L) 13.3 - 17.7 g/dL 11/20/2024 9:53 AM CDT LABORATORY Hematocrit 32.0(L) 40.0 - 53.0 % 11/20/2024 9:53 AM CDT LABORATORY MCV 95 78 - 100 fL 11/20/2024 9:53 AM CDT LABORATORY MCH 31.5 26.5 - 33.0 pg 11/20/2024 9:53 AM CDT LABORATORY MCHC 33.1 31.5 - 36.5 g/dL 11/20/2024 9:53 AM CDT LABORATORY RDW 13.8 10.0 - 15.0 % 11/20/2024 9:53 AM CDT LABORATORY Platelet Count 249 150 - 450 10e3/uL 11/20/2024 9:53 AM CDT LABORATORY Blood BLOOD SPECIMEN / Unknown Venipuncture / Unknown 11/20/2024 9:42 AM CDT 11/20/2024 9:50 AM CDT us Carlton Sultana MD LAB - BLOOD ORDERABLES Final Result LABORATORY [facility] [address], [address] [place] [address], [facility] [phone] * (ABNORMAL) UA Macroscopic with reflex to Microscopic and Culture (11/19/2024 9:27 AM CDT) Color Urine Light Yellow Colorless, Straw, Light Yellow, Yellow 11/19/2024 9:45 AM CDT LABORATORY Appearance Urine Clear Clear 11/20/19 9:45 AM CDT LABORATORY Glucose Urine Negative Negative mg/dL 11/19/2024 9:45 AM CDT LABORATORY Bilirubin Urine Negative Negative 9:45 AM CDT LABORATORY Ketones Urine Negative Negative mg/dL 11/19/2024 9:45 AM CDT LABORATORY Specific [place] Urine 1.018 1.003 - 1.035 11/19/2024 9:45 AM CDT LABORATORY Blood Urine Large(A) Negative 11/19/2024 9:45 AM CDT LABORATORY pH Urine 5.5 5.0 - 7.0 11/19/2024 9:45 AM CDT LABORATORY Protein Albumin Urine 10(A) Negative mg/dL 11/19/2024 9:45 AM CDT LABORATORY Urobilinogen Urine Normal Normal mg/dL 11/19/2024 9:45 AM CDT LABORATORY Nitrite Urine Negative Negative 11/19/2024 9:45 AM CDT LABORATORY Leukocyte Esterase Urine Large(A) Negative 11/19/2024 9:45 AM CDT LABORATORY WBC Clumps Urine Present(A) None Seen /HPF 11/19/2024 9:45 AM CDT LABORATORY Mucus Urine Present(A) None Seen /LPF 11/19/2024 9:45 AM CDT LABORATORY RBC Urine 90(H) <=2 /HPF 11/19/2024 9:45 AM CDT LABORATORY WBC Urine 99(H) <=5 /HPF 11/19/2024 9:45 AM CDT LABORATORY Urine URINE SPECIMEN OBTAINED VIA INDWELLING URINARY CATHETER / Unknown Non-blood Collection / Unknown 11/19/2024 9:27 AM CDT 11/19/2024 9:35 AM CDT Narrative LABORATORY - 11/19/2024 9:45 AM CDT Urine Culture ordered based on laboratory criteria us Carlton Sultana MD LAB - URINE ORDERABLES Final Result LABORATORY [facility] [address], [address] [place] [address] [phone] * Urine Culture (11/19/2024 9:27 AM CDT) Only the most recent of2 resultswithin the time period is included. Culture 10,000-50,000 CFU/mL Mixture of Urogenital Ernestina 11/20/2024 7:49 AM CDT UU IDD LABORATORY Urine URINE SPECIMEN OBTAINED VIA INDWELLING URINARY CATHETER / Unknown Non-blood Collection / Unknown 11/19/2024 9:27 AM CDT 11/19/2024 9:45 AM CDT us Carlton Sultana MD LAB - MICRO GENERAL ORDERABLE S Final Result UU IDD LABORATORY [facility] Inf. Diseases Diag. Lab [address] [facility], [address] [place] [id number] * EKG 12-lead, tracing only (11/19/2024 9:22 AM CDT) Only the most recent of4 resultswithin the time period is included. Systolic Blood Pressure mmHg RADIOLOGY RESULTS Diastolic Blood Pressure mmHg RADIOLOGY RESULTS Ventricular Rate 86 BPM RAD IOLOGY RESULTS Atrial Rate 86 BPM RADIOLOG Y RESULTS IA Interval 154 ms RADIOLOG Y RESULTS QRS Duration 92 ms RADIOLO GY RESULTS QT 384 ms RADIOLOGY RESULTS QTc 459 ms RADIOLOGY RESULTS P [place] 39 degrees RADIOLOGY RESULTS R AXIS -54 degrees RADIOLOGY RESULTS T [place] 41 degrees RADIOLOGY RESULTS Interpretation ECG Sinus rhythm Left axis deviation Anterolateral infarct (cited on or before 18-Nov-2024) Abnormal ECG When compared with ECG of 18-Nov-2024 18:55, Questionable change in initial forces of Anterolateral leads Confirmed by LAURITA SALCEDO ([id number]) on 11/19/2024 1:16:28 PM RADIOLOGY RESULTS 11/19/2024 9:22 AM CDT 11/19/2024 1:16 PM CDT us Carlton Sultana MD ECG ORDERABLES Edited Result - Final RADIOLOGY RESULTS * Potassium (11/18/2024 8:28 PM CDT) Potassium 3.8 3.4 - 5.3 mmol/L 11/18/2024 8:58 PM CDT LABORATORY Blood STRUCTURE OF LEFT UPPER LIMB / Unknown Venipuncture / Unknown 11/18/2024 8:28 PM CDT 11/18/2024 8:33 PM CDT us Shasha Vargas MD LAB - BLOOD ORDERABLES Fi nal Result LABORATORY [facility] [address], [address] [place] [address], [facility] [phone] * (ABNORMAL) UA with Microscopic reflex to Culture (11/18/2024 10:21 AM CDT) Color Urine Light Brown(A) Colorless, Straw, Light Yellow, Yellow 11/18/2024 10:40 AM CDT LABORATORY Appearance Urine Cloudy(A) Clear 11/19/19 10:40 AM CDT LABORATORY Glucose Urine Negative Negative mg/dL 11/18/2024 10:40 AM CDT LABORATORY Bilirubin Urine Negative Negative 10:40 AM CDT LABORATORY Ketones Urine Trace(A) Negative mg/dL 11/18/2024 10:40 AM CDT LABORATORY Specific [place] Urine 1.016 1.003 - 1.035 11/18/2024 10:40 AM CDT LABORATORY Blood Urine Large(A) Negative 11/18/2024 10:40 AM CDT LABORATORY pH Urine 6.5 5.0 - 7.0 11/18/2024 10:40 AM CDT LABORATORY Protein Albumin Urine 70(A) Negative mg/dL 11/18/2024 10:40 AM CDT LABORATORY Urobilinogen Urine Normal Normal mg/dL 11/18/2024 10:40 AM CDT LABORATORY Nitrite Urine Positive(A) Negative 11/18/2024 10:40 AM CDT LABORATORY Leukocyte Esterase Urine Large(A) Negative 11/18/2024 10:40 AM CDT LABORATORY Bacteria Urine Moderate(A) None Seen /HPF 11/18/2024 10:40 AM CDT LABORATORY WBC Clumps Urine Present(A) None Seen /HPF 11/18/2024 10:40 AM CDT LABORATORY Mucus Urine Present(A) None Seen /LPF 11/18/2024 10:40 AM CDT LABORATORY Amorphous Crystals Urine Few(A) None Seen /HPF 11/18/2024 10:40 AM CDT LABORATORY RBC Urine >182(H) <=2 /HPF 11/18/2024 10:40 AM CDT LABORATORY WBC Urine >182(H) <=5 /HPF 11/18/2024 10:40 AM CDT LABORATORY Urine URINE SPECIMEN OBTAINED VIA INDWELLING URINARY CATHETER / Unknown Non-blood Collection / Unknown 11/18/2024 10:21 AM CDT 11/18/2024 10:29 AM CDT Narrative LABORATORY - 11/18/2024 10:40 AM CDT Urine Culture ordered based on laboratory criteria [facility] LAB - URINE ORDERABLES María l Result LABORATORY [facility] [address], [address] [place] [address], [facility] [phone] * Lactic Acid Whole Blood with 1X Repeat in 2 HR when >2 (11/18/2024 10:19 AM CDT) Lactic Acid, Initial 1.4 0.7 - 2.0 mmol/L 11/18/2024 10:31 AM CDT LABORATORY Blood BLOOD SPECIMEN / Unknown Venipuncture / Unknown 11/18/2024 10:19 AM CDT 11/18/2024 10:30 AM CDT [facility] LAB - BLOOD ORDERABLES María l Result LABORATORY [facility] [address], [address] [place] [address], [facility] [phone] * (ABNORMAL) CBC with platelets and differential (11/18/2024 10:19 AM CDT) [facility] WBC Count 9.8 4.0 - 11.0 10e3/uL 11/18/2024 10:33 AM CDT LABORATORY RBC Count 3.88(L) 4.40 - 5.90 10e6/uL 11/18/2024 10:33 AM CDT LABORATORY Hemoglobin 12.5(L) 13.3 - 17.7 g/dL 11/18/2024 10:33 AM CDT LABORATORY Hematocrit 36.5(L) 40.0 - 53.0 % 11/18/2024 10:33 AM CDT LABORATORY MCV 94 78 - 100 fL 11/18/2024 10:33 AM CDT LABORATORY MCH 32.2 26.5 - 33.0 pg 11/18/2024 10:33 AM CDT LABORATORY MCHC 34.2 31.5 - 36.5 g/dL 11/18/2024 10:33 AM CDT LABORATORY RDW 14.1 10.0 - 15.0 % 11/18/2024 10:33 AM CDT LABORATORY Platelet Count 296 150 - 450 10e3/uL 11/18/2024 10:33 AM CDT LABORATORY % Neutrophils 72 % 11/18/2024 10:33 AM CDT LABORATORY % Lymphocytes 18 % 11/18/2024 10:33 AM CDT LABORATORY % Monocytes 8 % 11/18/2024 10:33 AM CDT LABORATORY % Eosinophils 1 % 11/18/2024 10:33 AM CDT LABORATORY % Basophils 1 % 11/18/2024 10:33 AM CDT LABORATORY % Immature Granulocytes 0 % 11/18/2024 10:33 AM CDT LABORATORY NRBCs per 100 WBC 0 <1 /100 025 10:33 AM CDT LABORATORY Absolute Neutrophils 7.1 1.6 - 8.3 10e3/uL 11/18/2024 10:33 AM CDT LABORATORY Absolute Lymphocytes 1.8 0.8 - 5.3 10e3/uL 11/18/2024 10:33 AM CDT LABORATORY Absolute Monocytes 0.8 0.0 - 1.3 10e3/uL 11/18/2024 10:33 AM CDT LABORATORY Absolute Eosinophils 0.1 0.0 - 0.7 10e3/uL 11/18/2024 10:33 AM CDT LABORATORY Absolute Basophils 0.1 0.0 - 0.2 10e3/uL 11/18/2024 10:33 AM CDT LABORATORY Absolute Immature Granulocytes 0.0 <=0.4 10e3/uL 11/18/2024 10:33 AM CDT LABORATORY Absolute NRBCs 0.0 10e3/uL 11/18/2024 10:33 AM CDT LABORATORY Blood BLOOD SPECIMEN / Unknown Venipuncture / Unknown 11/18/2024 10:19 AM CDT 11/18/2024 10:31 AM CDT [facility] Michael BROOKS LAB - BLOOD ORDERABLES María l Result LABORATORY [facility] [address] [place] [address], [facility] [phone] * (ABNORMAL) Comprehensive metabolic panel (11/18/2024 10:19 AM CDT) Sodium 136 135 - 145 mmol/L 11/18/2024 10:55 AM [facility] Potassium 3.8 3.4 - 5.3 mmol/L 11/18/2024 10:55 AM [facility] Carbon Dioxide (CO2) 25 22 - 29 mmol/L 11/18/2024 10:55 AM CDT LABORATORY Anion Gap 12 7 - 15 mmol/L 11/18/2024 10:55 AM CDT LABORATORY Urea Nitrogen 33.4(H) 8.0 - 23.0 mg/dL 11/18/2024 10:55 AM CDT LABORATORY Creatinine 1.52(H) 0.67 - 1.17 mg/dL 11/18/2024 10:55 AM CDT LABORATORY GFR Estimate 45(L) >60 mL/min/1.7 3m2 11/18/2024 10:55 AM CDT LABORATORY Comment:eGFR calculated usin g 1 CKD-EPI equation. Calcium 9.1 8.8 - 10.4 mg/dL 11/18/2024 10:55 AM CDT LABORATORY Chloride 99 98 - 107 mmol/L 11/18/2024 10:55 AM CDT LABORATORY Glucose 124(H) 70 - 99 mg/dL 11/18/2024 10:55 AM CDT LABORATORY Alkaline Phosphatase 68 40 - 150 U/L 11/18/2024 10:55 AM CDT LABORATORY AST 29 0 - 45 U/L 11/18/2024 10:55 AM CDT LABORATORY ALT 15 0 - 70 U/L 11/18/2024 10:55 AM CDT LABORATORY Protein Total 7.1 6.4 - 8.3 g/dL 11/18/2024 10:55 AM CDT LABORATORY Albumin 4.3 3.5 - 5.2 g/dL 11/18/2024 10:55 AM CDT LABORATORY Bilirubin Total 0.5 <=1.2 mg/dL 11/18/2024 10:55 AM CDT LABORATORY Blood BLOOD SPECIMEN / Unknown Venipuncture / Unknown 11/18/2024 10:19 AM CDT 11/18/2024 10:31 AM CDT [facility] Michael BROOKS LAB - BLOOD ORDERABLES María matthew Result LABORATORY [facility] [address], [address] [place] [address], [facility] [phone] * (ABNORMAL) A.M.A. LIPID PANEL (03/08/2010 9:28 AM CDT) [facility] Cholesterol 190 0 - 200 mg/dL [facility] Comment: LDL Cholesterol is the primary guide to therapy. The NCEP recommends further evaluation of: patients with cholesterol <200 mg/dL if additional risk factors are present, cholesterol >240 mg/dL, triglycerides >150 mg/dL, or HDL <40 mg/dL. Triglycerides 159(H) 0 - 150 mg/dL [facility] HDL Cholesterol 44 40 - 110 mg/dL [facility] LDL Cholesterol Calculated 114 0 - 129 mg/dL [facility] Comment: LDL Cholesterol is the primary guide to therapy: LDL-cholesterol goal in high risk patients is <100 mg/dL and in very high risk patients is <70 mg/dL. VLDL-Cholesterol 32(H) 0 - 30 mg/dL [facility] Cholesterol/HDL Ratio 4.4 0.0 - 5.0 [facility] 03/08/2010 9:28 AM CDT 03/08/2010 9:30 AM CDT us Steven Khan MD LABORATORY Final Result [facility] [address] [place] [address] [place] [address] * Stool for colon cancer screening (02/24/2010 7:00 AM CDT) Occult Blood Scn FIT Negative NEG [facility] 02/24/2010 7:00 AM CDT 02/24/2010 9:53 AM CDT us Leslie Fuentes MD LABORATORY Final Resu lt [facility] [address] [place] [address] from Last 3 Months or Most Recently Relevant to Health Maintenance Insurance [facility] MEDICARE ADVANTAGE [facility] MEDICARE ADVANTAGE Advance Directives For more information, please contact: [phone] * Full Code (Latest Code Status on File) Date Activated Date Inactivated Comments 11/18/2024 12:46 PM 11/20/2024 6:25 PM All basic a nd advanced life-sustaining interventions are performed as appropriate Question Answer Comments Code status determined by: Discussion with patie nt/ legal decision maker * Full Code Date Activated Date Inactivated Comments 09/05/2024 6:08 AM 09/08/2024 11:22 PM All basic a nd advanced life-sustaining interventions are performed as appropriate Question Answer Comments Code status determined by: Discussion with patie nt/ legal decision maker Care Teams Business Support Professional Relationship Specialty [place] [address] [place] [address] PCP - General Family Medicine 11/18/24
--- OUTSIDE RECORDS SUMMARY | 2024-12-26 21:27 | XMS_ITS | Data Portability ---
Author Organization [facility] Address [address] [place] [address] Care Team Providers Care Mobile Patrol Officer Name Role Phone DALTON CALL Primary Care Provider [phone] Assessment Encounter Date Assessment Date Assessment LastModified by Organization Details LastModified Time 10/06/2024 10/06/2024 84 year old male with urinary retention. Not available 10/06/2024 11:00:28 Plan of Treatment Reminders Order Date Submit Date Provider Last Modified By Organization Details Last Modified Time Details Appointments LAB CATH CHANGE 2024 08:00A M CLINICAL_ SCHEDULE Not available Not available Not available ESTABLISH ED 20 2024 03:20P M Rivka Reyes PA-C Not available Not available Not available Lab None recorded. Referral None recorded. Procedures urodynami c testing, complex (PROC) 2024 025 [email or web address] Not available 11/03/2024 14:54:32 Surgeries None recorded. Imaging None recorded. Medication Orders Bactrim DS 800 mg-160 mg tablet 2024 025 [facility][id number], [address], [place], [address], 10/06/2024 10:57:09 Patient TargetsNo targets recorded. Patient Instructions Encounter Date Encounter Id Patient Instructions Last Modified By Organization Details Last Modified Time 10/06/2024 [id number] urodynamic studies: about these tests Not available 10/06/2024 10:57:07 Urinary retention: He was in significant urinary retention and was asymptomatic at the time of Senior placement. 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 I recommend we obtain urodynamic studies to assess if this is potentially reversible with an outlet procedure. 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 He will complete urodynamic studies to asses if there is a role for surgical therapy and we will discuss after we have these results. His catheter will be exchanged today. Not available 10/06/2024 11:01:32 Reason for Referral None Reported. Problems Name Problem SNOMED Code Status Onset Date Resolution Date Notes Provider Name and Address Organization Details Recorded Time Chronic kidney disease stage 3B 801700087 Active 2024 Christian Meath null, [facility] 11:29:55 Prostate specific antigen above reference range 863279013 Active 2024 Christain Meat null, [facility] 11:30:02 Mild neurocognitive disorder 553697456 Active 2024 Christian Meat null, [facility] 5 11:30:10 Prediabetes 454539808 Active 2024 Christian Meat null, [facility] 11:30:17 Depressive disorder 70959089 Active 2024 Christian Meat null, [facility] 11:30:23 Hyperlipidemia 81335076 Active 2024 Christian Meat null, [facility] 11:30:31 Hypertensive disorder 42700688 Active 2024 Christian Meat null, [facility] 11:30:34 Retention of urine 609215485 Active 2024 Christian Meath null, [facility] 11:30:40 Problem Notes None recorded. Procedures Surgical History Date Name Laterality Status Provider Name and Address Organization Details Recorded Time 10/06/19 25 COMPLEX VISIT completed Alex Sanford MD [address] [facility],[address], [place], [address], [facility] 10/06/2024 10:59:52 03/21/19 73 Removal of sperm duct(s) completed Not Available [facility] 02/04/2020 20:57:54 Appendectomy add-on completed Not Available [facility] 02/04/2020 20:57:54 Imaging Results None recorded. Procedure Notes None recorded. Medical Equipment None Reported. Allergies Allergen ID Allergen Name Allergen Category Reaction Reaction Severity Criticality Documentation Date Start Date Code Code System Note Provider Name and Address Organization Details Recorded Time 295346 aspirin medicatio n Not available Not available Not available 02/03/2020 1191 RxNorm Not Available [facility] 0 23:35:49 Medications Name Sig Start Date Stop Date Status Note LastModified by Organization Details LastModified Time sulfamethox azole 800 mg-trimetho prim 160 mg tablet TAKE 1 TABLET BY MOUTH TWICE A DAY DIRECTED FOR 3 DAYS. TAKE 3 DAYS PRIOR TO URODYNAMI CS active Not Available Not Available No t Available levothyroxi ne 25 mcg tablet TAKE 1 TABLET (25 MCG) ORALLY EVERY DAY active Not Available Not Available No t Available cephalexin 500 mg capsule TAKE 1 CAPSULE ORALLY THREE TIMES A DAY 10/06 completed Not Available Not Available Not Available Vitals Date Recorded Body height Body mass index (BMI) Body weight Provider Name and Address Organization Details Last Updated DateTime 10/06/2024 154.94 cm 20.4 kg/m2 67833.98 g Christian Meat [place] [facility] 10/06/2024 10:29:56 Social History Question Answer Notes LastModified by Organizat ion Details LastModified Time Tobacco Smoking Status Never Smoker Not Available [facility] 02/04/2020 04:11:14 What Is Your Level Of Alcohol Consumption? None Information not available 10/06/2024 What Is Your Level Of Caffeine Consumption? Moderate Information not available 10/06/2024 Race Information n ot available 02/04/2020 Marital Status Informati on not available 02/04/2020 What Was The Date Of Your Most Recent Tobacco Screening? 10/06/2024 Information not available 10/06/2024 Do You Use Any Illicit Or Recreational Drugs? No Information not available 10/06/2024 Has Tobacco Cessation Counseling Been Provided? No Information not available 10/06/2024 Do You Or Have You Ever Used Any Other Forms Of Tobacco Or Nicotine? No Information not available 10/06/2024 Sex: Unknown Functional Status None recorded. Mental Status None recorded. Family History Relationship Description Onset Age of this Age Resolved Age Notes LastModified by Organization Details LastModified Time Father No current problems or disability [email or web address] Not available 10/06 10:30:23 Mother No current problems or disability [email or web address] Not available 10/06 10:30:23 Medical History No medical history recorded. Immunizations Vaccine Type Date Status Note Provider Nam e and Address Organization Details Recorded Time Influenza, adjuvanted, trivalent, PF 8 completed Christian Meath null, [facility] 10/06/2024 10:26:53 Influenza, adjuvanted, trivalent, PF 9 completed Christian Meath null, [facility] 10/06/2024 10:26:53 Influenza, adjuvanted, trivalent, PF 7 completed Christian Meath null, [facility] 10/06/2024 10:26:53 Influenza, adjuvanted, trivalent, PF 4 completed Christian Meath null, [facility] 10/06/2024 10:26:53 Influenza, high-dose, quadrivalent, PF 0 completed Christian Meath null, [facility] 10/06/2024 10:26:53 Influenza, adjuvanted, quadrivalent, PF 2 completed Christian Meath null, [facility] 10/06/2024 10:26:53 Influenza, adjuvanted, quadrivalent, PF 3 completed Christian Meath null, [facility] 10/06/2024 10:26:53 COVID-19, mRNA, LNP-S, PF, 30 mcg/0.3 mL dose 1 completed Christian Meath null, [facility] 10/06/2024 10:26:53 COVID-19, mRNA, LNP-S, PF, 30 mcg/0.3 mL dose 1 completed Christian Meath null, [facility] 10/06/2024 10:26:53 COVID-19, mRNA, LNP-S, PF, 30 mcg/0.3 mL dose 1 completed Christian Meath null, [facility] 10/06/2024 10:26:53 COVID-19, mRNA, LNP-S, bivalent, PF, 30 mcg/0.3 mL dose 2 completed Christian Meath null, [facility] 10/06/2024 10:26:53 pneumococcal polysaccharide PPV23 6 completed Christian Meat null, [facility] 10/06/2024 10:26:53 Tdap 3 completed Christian Meath null, [facility] 10/06/2024 10:26:53 Pneumococcal conjugate PCV 13 5 completed Christian Meat null, [facility] 10/06/2024 10:26:53 Influenza, high-dose, trivalent, PF 5 completed Christian Meath null, [facility] 10/06/2024 10:26:53 Influenza, split virus, trivalent, preservative 6 completed Christian Meath null, [facility] 10/06/2024 10:26:53 Influenza, split virus, trivalent, preservative 3 completed Christian Meath null, [facility] 10/06/2024 10:26:53 Influenza, split virus, trivalent, preservative 2 completed Christian Meath null, [facility] 10/06/2024 10:26:53 Influenza, split virus, trivalent, preservative 4 completed Christian Meath null, [facility] 10/06/2024 10:26:53 Td (adult), 5 Lf tetanus toxoid, preservative free, adsorbed 0 completed Christian Meat null, [facility] 10/06/2024 10:26:53 Past Encounters Encounter ID Performer Location Encounter Start Date Encounter Closed Date Diagnosis/Indication Diagnosis SNOMED-CT Code Diagnosis ICD10 Code Diagnosis Note [id number] Alex Sanofrd MD [facility] [address] [address] 10/06/2024 10:24:36 10/12/2024 15:36:28 Retention of urine 331756359 R33.9 Health Concerns Section Related Observation LastModified by Organization Detai ls LastModified Time None Recorded Concern Status LastModified by Organization Details LastModified Time None Recorded Advance Directives Directive None Recorded Payers Encounter Date Sequence Insurance Name Policy Number Policy Hallman Covered Member ID Hallman Member ID Guarantor Name 10/06/2024 1 [id number] (MEDICARE REPLACEMENT/A DVANTAGE - PPO) Gian Romero [id number] Gian Romero Notes Date Note Type Note Provider Name and Address Organization Details Recorded Time 10/06/2024 text/html This is an 84 ye ar old male who is here for the evaluation and management of urinary retention. He was admitted to [facility] from 07/06/2025 - 07/09/2025 with altered mental status and constipation.He was found during that hospitalization to be in significant urinary retention and a Senior catheter was placed.He has remained catheter dependent since that time and failed several voiding trials despite medical therapy.His current catheter has been in place for about 1 month.He is here today to discuss next steps in management. Alex Sanford MD [address] [place] [address],[address], [place], [address], [facility] 10/06/2024 11:01:40
--- OUTSIDE RECORDS SUMMARY | 2024-12-26 21:28 | XMS_ITS | Encounter Summary ---
Author Organization [place] Address [address] [place] [address] Care Team Providers Care Molten Iron Pourer Name Role Phone Estefani Bob Primary Care Provider [phone] Reason for Visit * Reason Comments Catheter Problem Leaking cath * Auth/Cert Specialty Diagnoses / Procedures Referred By Yumiko ledesma Referred To Contact EMERGENCY MEDICINE Diagnoses Acute UTI Acute kidney injury [facility] Emergency Dept [address] [place] [address] Phone: tel: fax: Referral ID Status Reason Start Date Expiration Date Visits Re quested Visits Authorized [id number] 1 1 Encounter Details Date Type Department Care Team (Late st Contact Info) Description 11/18/2024 9:52 AM CDT - 11/20/2024 4:25 PM CDT Hospital Encounter [facility] [address] [phone] Arian Rodriguez MD [facility] [place] [address] Joseph Cortes MD [address] [phone] Carlton Sultana MD [address] [place] [id number] Atrial fibrillation with RVR (H) (Primary Dx); Acute UTI; Acute kidney injury Discharge Disposition: Home or Self Care Social History Tobacco Use Types Packs/Day Years [...] Answer Date Recorded Do you have housing? 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 Follow-ups Needed After Discharge Follow-up Appointments Hospital Follow-up with Existing Primary Care Provider (PCP) Please see details below Schedule Primary Care visit within: 7 Days -Repeat BMP at PCP follow-up -Ongoing rate-control titration per PCP/cardiology Unresulted Labs Ordered in the Past 30 Days of this Admission No orders found from 10/19/2024 to 11/19/2024. These results will be followed up by PCP Discharge Disposition Discharged to home Condition at discharge: Stable Hospital Course Gian Romero is a 84 year old male admitted on 11/18/2024 with history of hypertension, constipation, BPH with urinary retention and chronic lozoya presenting with lozoya leak and concern for UTI. Urine culture negative, LARS resolved, and will be discharging back to home. Concern for complicated UTI, ruled out Recent UTI (+E. 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 Initial UA infectious appearing, although culture with suspected contamination. No associated suprapubic pain, fever, or leukocytosis. Recent history of E coli/Klebsiella UTI and completed course of ciprofloxacin. Repeat culture with normal urogenital growth, remains HDS, afebrile, and no ongoing indication for antibiotics. -Continue tamsulosin 0.5mg daily -Daily CBC -Urology follow-up scheduled on discharge Acute kidney injury, pre-renal, resolved Baseline Cr WNL, Cr 1.52 on admission. Resolved with fluids, suspect pre-renal in setting of UTI, poor PO intake. -Resume lisinopril Paroxysmal afib w/ RVR, atrial flutter w/ variable conduction Hx of torsades de point During his last hospitalization in August 2024 torsades was captured on telemetry, asymptomatic and given IV amiodarone and IV magnesium. He was discharged on oral amiodarone with a taper and Eliquis was started. Experienced afib w/ RVR on 11/19 that quickly self-terminated without intervention. Unable to follow-up with cardiology as outpatient due to reported insurance challenges. -Start metoprolol succinate 12.5mg on discharge +Ongoing titration per PCP/cardiology +Borderline bradycardic w/ tartrate 6.25 q6h -Cardiology follow-up scheduled Long discussion regarding anticoagulation with patient. Initial plan for DOAC on discharge, however, patient is unable and unwilling to pay the cost for this (has already used 1 month free voucher). Discussed alternatives including warfarin, ASA, etc., however, patient declined all anticoagulation.He understands the increased risk of stroke without any anticoagulation. Frequent falls Patient and son report frequent mechanical falls in the last few months. Denies dizziness, chest pain, loss of consciousness, or shortness of breath. Utilizes a cane at baseline. No obvious injuries admission on exam. -Home w/ assist per therapies Hypertension - Continue amlodipine and lisinopril, stop HCTZ Chronic constipation Moderate protein-calorie malnutrition - Nutrition consulted Consultations This Hospital Stay CARE MANAGEMENT / SOCIAL WORK IP CONSULT UROLOGY IP CONSULT PHYSICAL THERAPY ADULT IP CONSULT OCCUPATIONAL THERAPY ADULT IP CONSULT CARE MANAGEMENT / SOCIAL WORK IP CONSULT UROLOGY IP CONSULT Code Status Full Code Time Spent on this Encounter I, Carlton Sultana MD, personally saw the patient today and spent greater than 30 minutes discharging this patient. Carlton Sultana MD [place] [address] [facility] [address] [place] [address] Physical Exam Vital Signs: Temp: 98.1 ??F (36.7 ??C) Temp src: Oral BP: 110/47 Pulse: 63 Resp: 16 SpO2: 96 % O2 Device: None (Room air) Weight: 103 lbs 13.39 oz General: Awake, alert, NAD, appropriate interaction, laying flat in bed, declined historic interpreter HEENT: Atraumatic, normocephalic, EOMI, no scleral icterus CV: RRR, no murmurs, no OFELIA, distal pulses intact Pulm: CTAB, breathing comfortably on RA, no wheezes, no crackles Abd: Soft, non-tender, non-distended Skin: No rashes, lesions, or wounds visualized. Lozoya in-place and draining. Neuro: AOx4, CN II-XII grossly intact, no focal deficits, moving all extremities spontaneously, speech normal Primary Care Physician Estefani Bob Discharge Orders Discharge Instructions Appointment with [facility] (for Dr wahl) on 01/01 at 920am [address] [facility] [address] [facility] # [phone] Reason for your hospital stay You were at the hospital due to concern for a urinary infection. Activity Your activity upon discharge: activity as tolerated Tubes and Drains Current Tubes and Drains: Drain Duration Urinary Drain 11/18/24 Urethral Catheter 2 days To straight gravity drainage. Change catheter every 2 weeks and PRN for leaking or decreased urine output with signs of bladder distention. DO NOT change catheter without a specific Provider order IFdiagnosis of benign prostatic hypertrophy (BPH), neurogenic bladder, or other urological conditions Diet Follow this diet upon discharge: Current Diet:Orders Placed This Encounter Combination Diet Regular Diet Adult Hospital Follow-up with Existing Primary Care Provider (PCP) Please see details below Significant Results and Procedures Most Recent 3 CBC's: Recent Labs Lab Test 11/20/24 0942 11/19/24 0920 11/18/24 1019 WBC 7.3 7.5 9.8 HGB 10.6* 11.3* 12.5* MCV 95 96 94 PLT 249 260 296 Most Recent 3 BMP's: Recent Labs Lab Test 11/20/24 0942 11/19/24 0920 11/18/24202711/18/24 1019 NA 136 140 -- 136 POTASSIUM 4.3 3.8 3.8 3.8 CHLORIDE 101 105 -- 99 CO2 26 23 -- 25 BUN 28.7* 26.7* -- 33.4* CR 1.15 1.38* -- 1.52* ANIONGAP 9 12 -- 12 ALDO 8.8 8.8 -- 9.1 GLC 162* 130* -- 124* Discharge Medications Current Discharge Medication List START taking these medications Details apixaban ANTICOAGULANT (ELIQUIS) 2.5 MG tablet Take 1 tablet (2.5 mg) by mouth 2 times daily. Qty: 60 tablet, Refills: 1 Associated Diagnoses: Atrial fibrillation with RVR (H) metoprolol succinate ER (TOPROL XL) 25 MG 24 hr tablet Take 0.5 tablets (12.5 mg) by mouth daily. Qty: 60 tablet, Refills: 1 Associated Diagnoses: Atrial fibrillation with RVR (H) CONTINUE these medications which have NOT CHANGED Details amLODIPine (NORVASC) 10 MG tablet Take 10 mg by mouth every evening. cyanocobalamin (VITAMIN B-12) 1000 MCG tablet Take 1,000 mcg by mouth every evening. niacin 500 MG tablet Take 500 mg by mouth every evening. pravastatin (PRAVACHOL) 40 MG tablet Take 40 mg by mouth every evening. tamsulosin (FLOMAX) 0.4 MG capsule Take 0.4 mg by mouth every evening. STOP taking these medications hydrochlorothiazide (HYDRODIURIL) 25 MG tablet Comments: Reason for Stopping: Allergies Allergies Allergen Reactions No Known Drug Allergy documented in this encounter Medications at Time of Discharge amLODIPine (NORVASC) 10 MG tablet Take 10 mg by mouth every evening. cyanocobalamin (VITAMIN B-12) 1000 MCG tablet Take 1,000 mcg by mouth every evening. metoprolol succinate ER (TOPROL XL) 25 MG 24 hr tabletIndications: Atrial fibrillation with RVR (H) Take 0.5 tablets (12.5 mg) by mouth daily. 60 tablet 1 11/20/2024 niacin 500 MG tablet Take 500 mg by mouth every evening. pravastatin (PRAVACHOL) 40 MG tablet Take 40 mg by mouth every evening. tamsulosin (FLOMAX) 0.4 MG capsule Take 0.4 mg by mouth every evening. documented as of this encounter Progress Notes * Antwon House OT - 11/20/2024 4:25 PM CDT Occupational Therapy Discharge Summary Reason for therapy discharge: Discharged to home with home therapy. Progress towards therapy goal(s). See goals on [facility] in [facility] electronic [facility] record for goal details. Goals partially met. Barriers to achieving goals: discharge from facility. Therapy recommendation(s): Continued therapy is recommended. Rationale/Recommendations: Recommend home OT to increase endurance and independence in ADLS. * Casandra Zepeda RN - 11/20/2024 4:21 PM CDT Discharge Patient discharged to Home via Car ride with Son -IV out, pt discharged with walker and lozoya bag changed to leg bag. Listed belongings gathered and given to patient (including from security/pharmacy). Yes Care Plan and Patient education resolved: Yes Prescriptions if needed, hard copies sent with patient Yes Medication Bin checked and emptied on discharge Yes SW/chronic care nurse/supercharger repair supervisor aware of discharge: Yes * Amy Eagle RN - 11/20/2024 2:13 PM CDT A/Ox4. On RA. Citizen Of [place] speaking, but understands and speaks azerbaijani. Chronic lozoya in and patent.Mg and Phos replaced. Discharge place. Pt refused discharge med (Eliquis) d/t cost. Hospitalist notified. Pt declined after MD explains risk /benefits. PIV removed. Awaiting for his son. * Ilsa Hawkins OTR - 11/19/2024 4:31 PM CDT 11/19/24 1400 Appointment Info Signing Clinician's Name / Credentials (OT) Ilsa Hawkins, OTD, OTR/L Railroad Surveyor Railroad Surveyor Present no Language Pt politely declines Citizen Of [place] historic interpreter, understands most Qatari Living Environment People in Home child(que), adult;other (see comments) (daughter, ERICKA and his grandchildren) Current Living Arrangements house Home Accessibility stairs within home Number of Stairs, Within Home, Primary one Transportation Anticipated family or friend will provide Living Environment Comments Pt resides with adult daughter and ERICKA. Pt reports using cane sometimesat baseline. one step to navigate on main level where he primarily stays. BR set up: walk in showerupstairs. Pt reports he can sponge bathe. Self-Care Usual Activity Tolerance good Current Activity Tolerance moderate Equipment Currently Used at Home cane, straight Fall history within last six months yes Number of times patient has fallen within last six months (Per chart: many times) Activity/Exercise/Self-Care Comment Pt is ind with ADLs at baseline. Instrumental Activities of Daily Living (IADL) IADL Comments Daughter assist with meals/cleaning, pt takes medications by himself, pt reports his car stopped working so he does not drive anymore General Information Onset of Illness/Injury or Date of Surgery 11/18/24 Referring Physician Valery Garcia, REGULATORY ANALYST Patient/Family Therapy Goal Statement (OT) To get stronger/To go home Additional Occupational Profile Info/Pertinent History of Current Problem Per chart: Gian Romero is a 84 year old male admitted on 11/18/2024. He has a past medical history of hypertension, constipation, BPH with urinary retention requiring Lozoya catheter placement who presents with leaking catheter. Existing Precautions/Restrictions fall Limitations/Impairments safety/cognitive Cognitive Status Examination Orientation Status person;place;time (hospital) Follows Commands follows one-step commands;over 90% accuracy;repetition of directions required;verbal cues/prompting required Cognitive Status Comments Pt following commands appropriately during session, minimal cueing for managing cath line during ADLs - pt reports his cath at home is different. Visual Perception Visual Impairment/Limitations WFL Sensory Sensory Quick Adds sensation intact Range of Motion Comprehensive Comment, General Range of Motion BUEs WFL Strength Comprehensive (MMT) Comment, General Manual Muscle Testing (MMT) Assessment BUEs WFL Coordination Upper Extremity Coordination No deficits were identified Bed Mobility Bed Mobility supine-sit Comment (Bed Mobility) SBA Transfers Transfers sit-stand transfer Sit-Stand Transfer Sit/Stand Transfer Comments SBA Balance Balance Comments Pt mobilizes at quick pace pushing IV pole, when asked to mobilize without it, pt requesting to keep it to hang onto Activities of Daily Living BADL Assessment/Intervention lower body dressing Lower Body Dressing Assessment/Training Comment, (Lower Body Dressing) SBA B socks Clinical Impression Criteria for Skilled Therapeutic Interventions Met (OT) Yes, treatment indicated OT Diagnosis Decreased independence with I/ADLs OT Problem List-Impairments impacting ADL problems related to;activity tolerance impaired;balance;cognition;mobility Assessment of Occupational Performance 3-5 Performance Deficits Identified Performance Deficits dressing, bathing, toileting Planned Therapy Interventions (OT) ADL retraining;cognition;transfer training Clinical Decision Making Complexity (OT) problem focused assessment/low complexity Risk & Benefits of therapy have been explained patient OT Total Evaluation Time OT Eval, Low Complexity Minutes (56788) 10 OT Goals Therapy Frequency (OT) Daily OT Predicted Duration/Target Date for Goal Attainment 12/04/24 OT Goals Hygiene/Grooming;Upper Body Dressing;Lower Body Dressing;Toilet Transfer/Toileting;Cognition;OT Goal 1 OT: Hygiene/Grooming supervision/stand-by assist (SPC vs FWW) OT: Upper Body Dressing Supervision/stand-by assist OT: Lower Body Dressing Supervision/stand-by assist (SPC vs FWW) OT: Toilet Transfer/Toileting Supervision/stand-by assist (SPC vs FWW) OT: Cognitive Patient/caregiver will verbalize understanding of cognitive assessment results/recommendations as needed for safe discharge planning OT: Goal 1 Pt will demo functional mobility for 10 minutes with SBA and navigate 1 stair for incr safety within I/ADLs. (SPC vs FWW) Therapeutic Activities Therapeutic Activity Minutes (67276) 18 Symptoms noted during/after treatment none Treatment Detail/Skilled Intervention Pt greeted supine in bed, agreeable to OT session. Pt followsmost commands throughout session, oriented to self, hospital and time. Pt completes supine > sitting EOB with SBA. Once sitting up at EOB, pt requires SBA for sitting balance for safety. Pt manages B socks with SBA. Pt dons brief with Min A to thread cath through leg hole of brief, pt reports his cath is different at home - once in standing pt able to pull brief up rest of way. Pt ambulates tohallway level with CGA-SBA pushing IV pole approx. 180 ft for incr activity devonte for taxing I/ADLs, pt reports it is his first time ambulating in hallway - mild unsteadiness noted, no overt LOB noted.Pt ambulates to chair and sits in chair with SBA pushing IV pole. At end of session, pt seated in chair with BLEs elevated with needs met, items/call light in reach, alarm set, RN updated. OT Discharge Planning OT Plan monitor cog, trial SPC vs FWW, trial 1 stair, toileting, clarify bathing routine OT Discharge Recommendation (DC Rec) home with assist;home with home care occupational therapy OT Rationale for DC Rec Pt currently functioning below baseline d/t noted impairments in activity tolerance, balance, cog, impacting safety/independence within I/ADLs. Pt at baseline resides with daughter, ERICKA, grandchildren and has baseline assist with cooking/cleaning. Currently, pt completes functional mobility in hallway with CGA-SBA pushing IV pole. Anticipate with continued IP OT, pt will progress for discharge home with initial supervision/assist with cath management, supervision for sponge bathing, assist with IADLs and [facility] OT for home safety evaluation and functional cognition, once medically ready. OT will continue to follow. OT Brief overview of current status Goals of therapy will be to address safe mobility and make recsfor d/c to next level of care. Pt and RN will continue to follow all falls risk precautions as documented by staff research scientist while hospitalized (CGA-SBA pushing IV pole) OT Total Distance Amb During Session (feet) 180 OT Equipment Needed at Discharge (May need FWW - will continue to assess) Total Session Time Timed Code Treatment Minutes 18 Total Session Time (sum of timed and untimed services) 28 * Lakhwinder Negro, RD - 11/19/2024 1:14 PM CDT CLINICAL NUTRITION SERVICES - ASSESSMENT NOTE Registered Dietitian Interventions: 0.5 Ensure (C) at L&D Continue regular diet REASON FOR ASSESSMENT Positive admission nutrition risk screen INFORMATION OBTAINED Assessed patient in room. NUTRITION HISTORY - Patient is on a regular diet at home - Typical food/fluid intake is 3 small meals during the day. More recently he's only been finishingaround 50% of his plates. He says has no activity, so he doesn't work up an appetite - He reported a usual wt of 50 kg - Supplements - None but he'd like 0.5 portions of Ensure (C) at L&D CURRENT NUTRITION ORDERS Diet:Orders Placed This Encounter Combination Diet Regular Diet Adult Snacks/Supplements: CURRENT INTAKE/TOLERANCE - Flowsheets show a good appetite and 1 intakes per day of 50 LABS Nutrition-relevant labs: Reviewed MEDICATIONS Nutrition-relevant medications: Reviewed ANTHROPOMETRICS Height: 160 cm (5' 3) Admission Weight: 47.1 kg (103 lb 13.4 oz) (11/18/24 1701) Most Recent Weight: 47.1 kg (103 lb 13.4 oz) (11/18/24 1701) IBW: 56.4 kg BMI: Body mass index is 18.39 kg/m??. Weight History: Wt Readings from Last 10 Encounters: 11/18/24 47.1 kg (103 lb 13.4 oz) 09/08/24 48 kg (105 lb 13.1 oz) 03/20/10 56 kg (123 lb 6.4 oz) 03/08/10 55.9 kg (123 lb 3.2 oz) 02/22/10 56.2 kg (124 lb) 08/14/07 56.7 kg (125 lb) 08/04/07 57.2 kg (126 lb) 06/17/06 57.2 kg (126 lb) 04/30/06 56.7 kg (125 lb) 07/05/03 59.4 kg (131 lb) Dosing Weight: 47.1 kg, based on actual wt ASSESSED NUTRITION NEEDS Estimated Energy Needs: 0632-9491 kcals (30-35 Kcal/Kg) Justification: underweight Estimated Protein Needs: 57-71 grams protein (1.2-1.5 g pro/Kg) Justification: repletion Estimated Fluid Needs: 3402-4866 mL (1 mL/Kcal) Justification: maintenance SYSTEM FINDINGS GI symptoms: Reviewed Skin/wounds: Reviewed MALNUTRITION % Intake: < 75% for > 7 days (moderate) % Weight Loss: Weight loss does not meet criteria Subcutaneous Fat Loss: None observed Muscle Loss: Temples (temporalis muscle): Mild and Clavicles (pectoralis and deltoids): Mild Fluid Accumulation/Edema: None noted Malnutrition Diagnosis: Moderate malnutrition in the context of acute illness or injury Malnutrition Present on Admission: Yes NUTRITION DIAGNOSIS Inadequate oral intake related to poor appetite as evidenced by pt report only finishing half his small meals recenlty and mild lean muscle mass wasting INTERVENTIONS Medical food supplement therapy GOALS Patient to consume 75-100% of nutritionally adequate meal trays TID, or the equivalent with supplements/snacks. MONITORING/EVALUATION Progress toward goals will be monitored and evaluated per policy. * Carlton Sultana MD - 11/19/2024 11:00 AM CDT [facility] Medicine Progress Note - Hospitalist Service Date of Admission: 11/18/2024 Assessment & Plan Gian Romero is a 84 year old male admitted on 11/18/2024 with history of hypertension, constipation, BPH with urinary retention and chronic lozoya presenting with lozoya leak and concern for UTI. Concern for complicated UTI Recent UTI (+E. 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 Initial UA infectious appearing, although culture with suspected contamination. No associated suprapubic pain, fever, or leukocytosis. Recent history of E coli/Klebsiella UTI and completed course of ciprofloxacin. -Repeat UA w/ culture now -Continue ceftriaxone, narrow as able -Continue tamsulosin 0.5mg daily -Daily CBC -Discussed with urology on admission, encouraged patient to follow-up as outpatient +Notes concern with [employer] insurance, SW consulted Acute kidney injury, pre-renal, improving Baseline Cr WNL, Cr 1.52 on admission. Improving with fluids, suspect pre-renal in setting of UTI, poor PO intake. -Continue mIVF this evening, encourage PO intake -Continue holding DEPUTY REGISTER OF DEEDS HCTZ and lisinopril -Repeat BMP in AM Paroxysmal afib w/ RVR, atrial flutter w/ variable conduction Hx of torsades de point During his last hospitalization in August 2024 torsades was captured on telemetry, asymptomatic and given IV amiodarone and IV magnesium. He was discharged on oral amiodarone with a taper and Eliquis was started. Experienced afib w/ RVR on 11/19 that quickly self-terminated without intervention. Unable to follow-up with cardiology as outpatient due to reported insurance challenges. -Cardiac monitoring -Start metoprolol tartrate 6.25mg q6h, consolidate as able -Continue mIVF as above -Apixaban BID -Daily BMP, mag, phos +Replace per protocol Frequent falls Patient and son report frequent mechanical falls in the last few months. Denies dizziness, chest pain, loss of consciousness, or shortness of breath. Utilizes a cane at baseline. No obvious injuries admission on exam. -PT, OT, SW consulted Hypertension - Continue amlodipine, holding hydrochlorothiazide and lisinopril Chronic constipation - Bowel regimen ordered Diet: Combination Diet Regular Diet Adult Room Service DVT Prophylaxis: DOAC Lozoya Catheter: PRESENT, indication: Chronic lozoya Lines: None Cardiac Monitoring: ACTIVE order. Indication: Electrolyte Imbalance (24 hours)- Magnesium <1.3 mg/ml; Potassium < =2.8 or > 5.5 mg/ml Code Status: Full Code Clinically Significant Risk Factors Present on Admission # Hypertension: Noted on problem list # Financial/Environmental Concerns: none Social Drivers of Health Housing Stability: High Risk (11/18/2024) Housing Stability Do you have housing? : No Are you worried about losing your housing?: Yes Interpersonal Safety: High Risk (11/18/2024) Interpersonal Safety Do you feel physically and emotionally safe where you currently live?: No Within the past 12 months, have you been hit, slapped, kicked or otherwise physically hurt by someone?: No Within the past 12 months, have you been humiliated or emotionally abused in other ways by your partner or ex-partner?: No Disposition Plan Medically Ready for Discharge: Anticipated Tomorrow Carlton Sultana MD Hospitalist Service [facility] Securely message with [employer] (more info) Text page via [facility] Paging/Directory Interval History States he feels well this morning. Denies fever, chills, n/v, abdominal pain, concerns with lozoya. Updated on plan to recollect urine. Physical Exam Vital Signs: Temp: 97.8 ??F (36.6 ??C) Temp src: Oral BP: 107/59 Pulse: 86 (NSR) Resp: 16 SpO2: 95 % O2 Device: None (Room air) Weight: 103 lbs 13.39 oz General: Awake, alert, NAD, appropriate interaction, laying flat in bed, declined historic interpreter HEENT: Atraumatic, normocephalic, EOMI, no scleral icterus CV: Irregular rate, irregular rhythm, no murmurs, no OFELIA, distal pulses intact Pulm: CTAB, breathing comfortably on RA, no wheezes, no crackles Abd: Soft, non-tender, non-distended Skin: No rashes, lesions, or wounds visualized. Lozoya in-place and draining. Neuro: AOx4, CN II-XII grossly intact, no focal deficits, moving all extremities spontaneously, speech normal Medical Decision Making 45 MINUTES SPENT BY ME on the date of service doing chart review, history, exam, documentation & further activities per the note. Data PAST 24 HR DATA REVIEWED * Marlene Barrera RN - 11/19/2024 9:13 AM CDT MD Notification Notified Person: MD Notified Person Name: Kayy Notification Date/Time: 11/19 914 Notification Interaction: twtrlandera Purpose of Notification: patient afib RVR 120's-140's, no PRNs ordred Orders Received: Stat EKG, LR bolus, metoprolol one time - orders placed by Addendum @ 0925: EKG showed NSR, HR 86 - metoprolol & bolus NOT given, ordered PO metoprolol * Valery Garcia NP - 11/18/2024 6:23 PM CDT Brief Hospitalist Update: Patient was discharge in August on 2.5 mg Eliquis BID for paroxysmal atrial flutter. This was deleted from his DEPUTY REGISTER OF DEEDS medication list. It is unclear why or when this is discontinued. Will resume BID while inpatient. Valery Garcia NP [facility] Securely message with the [employer] Web Console (learn more here) Text page via [facility] Paging/Directory No charge note. * Amber Mathew PA-C - 11/18/2024 3:43 PM CDT Urology Brief Note Patient is already established with Dr. lAex Wahl. Last seen 10/06/[address] [facility]. PerDr. 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 I recommend we obtain urodynamic studies to assess if this is potentially reversible with an outletprocedure. He may otherwise remain catheter dependent for the halfway. He will complete urodynamic studies to asses if there is a role for surgical therapy and we will discuss after we have these results. His catheter will be exchanged today. As he already had his catheter changed in the ED and is currently being treated for an UTI, he is welcome to call Dr. Wahl's office back at [phone] to set up a follow up appointment and/or for catheter cares. There is no need for a formal urology consult as this can be managed outpatient. Amber Mathew PA-C [facility] Pager: [phone] Office: [phone] * Marychuy Little RN - 11/18/2024 2:49 PM CDT RECEIVING UNIT ED HANDOFF REVIEW ED Nurse Handoff Report was reviewed by: Marychuy Little RN on November 18, 2024 at 2:49 PM documented in this encounter H&P Notes * Valery Garcia NP - 11/18/2024 11:26 AM CDT [facility] History and Physical - Hospitalist Service Date of Admission: 11/18/2024 Assessment & Plan Gian Romero is a 84 year old male admitted on 11/18/2024. He has a past medical history of hypertension, constipation, BPH with urinary retention requiring Lozoya catheter placement who presents with leaking catheter. Urinary tract infection History of E. coli/Klebsiella UTI BPH with urinary retention Lozoya catheter exchanged in ED on presentation 11/18. Urinalysis showing infection. *Afebrile. Normal WBC 9.8, lactic acid 1.4 on admission. -Admit inpatient -Continue ceftriaxone while inpatient. -Follow urine culture -Continue tamsulosin 0.5 mg daily -Urology referral was placed on hospital discharge in August however pt reports he did not follow up due to issues with his insurance -He would likely benefit from a home care nurse if ongoing catheter exchanges and cares are required -Patient reports he manages his medications independently however on chart review. Had a history ofparanoia and is an inconsistent historian. OT consultation for cognitive evaluation -SW/CC consultation to assist with in network providers for appropriate follow-up Acute fuller injury Likely secondary to UTI. Cr 1.52 on admission. BUN 33.4. -Received 1L IVF in ED -Continue gentle IVF overnight and 11/19 morning -Will hold DEPUTY REGISTER OF DEEDS HCTZ and lisinopril -Repeat BMP 11/19 History of paroxysmal atrial flutter with variable block History of torsades de point During his last hospitalization in August 2024 torsades was captured on telemetry, asymptomatic and given IV amiodarone and IV magnesium. He was discharged on oral amiodarone with a taper and Eliquis was started. -Patient was supposed to follow up with cardiology. It was reported that per policy he could not beseen in clinic due to [employer] insurance. -Monitor on telemetry overnight could likely discontinue 11/19 AM pending electrolytes -Add on magnesium and phosphorus levels pending -RN driven electrolyte replacement protocols in place -Continue DEPUTY REGISTER OF DEEDS Eliquis twice daily Frequent falls Patient and son report more frequent falls in the last few months. Sound mechanical in nature. Denies dizziness, chest pain or shortness of breath. Utilizes a cane at baseline. No obvious injuries admission on exam. -Monitor for clinical improvement with UTI and LARS treatment -PT evaluation -Monitor on telemetry overnight -Fall precautions Hypertension DEPUTY REGISTER OF DEEDS regimen: 25 mg hydrochlorothiazide daily, 5 mg lisinopril daily and 10 mg amlodipine daily -Continue DEPUTY REGISTER OF DEEDS amlodipine with hold parameters -Hold DEPUTY REGISTER OF DEEDS HCTZ and lisinopril given LARS -P.o./IV hydralazine available as needed for SBP greater than 180 History constipation Historically has resolved with MiraLAX. Will have MiraLAX, senna and suppositories available as needed Diet: regular DVT Prophylaxis: DOAC Lozoya Catheter: PRESENT, indication: Lines: None Cardiac Monitoring: yes, hx torsades Code Status: fULL Clinically Significant Risk Factors Present on Admission # Drug Induced Coagulation Defect: home medication list includes an anticoagulant medication # Hypertension: Noted on problem list # Financial/Environmental Concerns: none Disposition Plan Medically Ready for Discharge: Anticipated in 2-4 Days The patient's care was discussed with the Attending Physician, Dr. Cortes . Valery Garcia NP Hospitalist Service [facility] Securely message with [employer] (more info) Text page via [facility] Paging/Directory Chief Complaint Catheter leaking History is obtained from the patient, electronic health record, and emergency department physician History of Present Illness Gian Romero is a 84 year old male admitted on 11/18/2024. He has a past medical history of hypertension, constipation, BPH with urinary retention requiring Lozoya catheter placement who presents with a leaking catheter. Reviewed ED notes. Patient presented to the ED with complaints of a leaking catheter. Patient tellsme he was discharged in August with a catheter and he no longer wants it in place and believes he can be managed just on his tamsulosin. He reports significant barriers to follow-up given his insurance. He has not exchanged the catheter since admission in August. He denies any fevers or chills. No nausea or abdominal pain. His only concern with the catheter is that it has begun to leak and it is inconvenient for showering. Patient lives with his daughter Patricia and her family. He says his spouse also lives there but they are and he no longer wants to live at his daughter's house. He reports he manages all of his own medications he last took doses of his medicines last evening andcannot tell me why he did not take medications this morning. He tells me he walks with a cane and at times gets dizzy and has had frequent falls. Patient's son Saleem is at bedside during our encounter however he is visiting from out of state and is unable to provide any insight to his father's medical care. Lab studies completed in the ED included CMP showing BUN 33.4, creatinine 1.52, GFR 45, glucose 124. Lactic acid 1.4. A CBC showed WBC 9.8. RBC 3.88. Hemoglobin 12.5. Hematocrit 36.5. A magnesium andphosphorus level were added on and pending. A urinalysis showed large leukocyte esterase, positive nitrates, large amounts of blood and greater than 182 RBC and WBC. Urine culture is in process No imaging studies completed in the ED. Patient received 1 L NS bolus and 2 g ceftriaxone IV while in the ED. While in the ED patient was noted to be hypertensive BP 180/149. Temp 98.7. Heart rate 89 sinus. RR18. SpO2 98% on room air. Past Medical History Past Medical History: Diagnosis Date Hyperlipidemia LDL goal < 130 07/05/2003 Past Surgical History Past Surgical History: Procedure Laterality Date ZZC APPENDECTOMY age 7 Prior to Admission Medications Prior to Admission Medications Prescriptions Last Dose Informant Patient Reported? Taking? Flaxseed, Linseed, (FLAXSEED OIL) 1000 MG CAPS Pharmacy Yes No Sig: Take 1-2 capsules by mouth daily. GARLIC 300 MG OR CAPS No No Sig: as directed GINSENG OR Yes No Sig: prn Green Tea, Richa sinensis, (GREEN TEA EXTRACT) 150 MG CAPS Pharmacy Yes No Sig: Take 1 capsule by mouth daily. HYDROCHLOROTHIAZIDE 25 MG PO TABS No No Sig: ONE TABLET DAILY IN THE MORNING LISINOPRIL 5 MG PO TABS No No Sig: ONE DAILY MULTIVITAMIN TABS OR Yes No Si TABLET DAILY NIACIN 500 MG PO TABS Yes No Si TABLET DAILY AFTER MEALS SIMVASTATIN 40 MG PO TABS No No Si TABLET AT BEDTIME UNABLE TO FIND Pharmacy Yes No Sig: Take 1 tablet by mouth daily. MEDICATION NAME: Ginko Biloba 120 mg UNABLE TO FIND Pharmacy Yes No Sig: Take 1 tablet by mouth daily. MEDICATION NAME: Garlic with tumeric amLODIPine (NORVASC) 10 MG tablet Pharmacy Yes No Sig: Take 10 mg by mouth daily. amiodarone (PACERONE) 200 MG tablet No No Sig: Take 2 tablets (400 mg) by mouth 2 times daily for 6 days, THEN 2 tablets (400 mg) daily for 7days, THEN 1 tablet (200 mg) daily for 17 days. apixaban ANTICOAGULANT (ELIQUIS) 2.5 MG tablet No No Sig: Take 1 tablet (2.5 mg) by mouth 2 times daily. cholecalciferol 50 MCG (2000 UT) tablet Pharmacy Yes No Sig: Take 1 tablet by mouth daily. cyanocobalamin (VITAMIN B-12) 1000 MCG tablet Pharmacy Yes No Sig: Take 1,000 mcg by mouth daily. hydrochlorothiazide (HYDRODIURIL) 25 MG tablet Pharmacy Yes No Sig: Take 25 mg by mouth daily. multivitamin with lutein (OCUVITE WITH LUTEIN) CAPS per capsule Pharmacy Yes No Sig: Take 1 capsule by mouth daily. niacin 500 MG tablet Pharmacy Yes No Sig: Take 500 mg by mouth daily. pravastatin (PRAVACHOL) 40 MG tablet Pharmacy Yes No Sig: Take 40 mg by mouth daily. tamsulosin (FLOMAX) 0.4 MG capsule Pharmacy Yes No Sig: Take 0.4 mg by mouth daily. zinc gluconate 50 MG tablet Pharmacy Yes No Sig: Take 50 mg by mouth daily. Facility-Administered Medications: None Review of Systems The 10 point Review of Systems is negative other than noted in the HPI or here. Social History I have reviewed this patient's social history and updated it with pertinent information if needed. Social History Tobacco Use Smoking status: Never Substance Use Topics Alcohol use: No Drug use: No Allergies Allergies Allergen Reactions No Known Drug Allergy Physical Exam Vital Signs: Temp: 98.7 ??F (37.1 ??C) Temp src: Temporal BP: (!) 142/105 Pulse: 90 Resp: 18 SpO2: 98 % O2 Device: None (Room air) Weight: 0 lbs 0 oz Physical Exam Constitutional: Appearance: He is underweight. He is not ill-appearing or toxic-appearing. HENT: Right Ear: Decreased hearing noted. Left Ear: Decreased hearing noted. Mouth/Throat: Mouth: Mucous membranes are moist. Eyes: Pupils: Pupils are equal, round, and reactive to light. Cardiovascular: Rate and Rhythm: Normal rate and regular rhythm. Pulses: Normal pulses. Heart sounds: Normal heart sounds. Pulmonary: Effort: Pulmonary effort is normal. Breath sounds: Normal breath sounds. Abdominal: General: Bowel sounds are normal. Palpations: Abdomen is soft. Genitourinary: Comments: Lozoya with pink/katelyn urine Musculoskeletal: General: Normal range of motion. Skin: General: Skin is warm and dry. Capillary Refill: Capillary refill takes less than 2 seconds. Neurological: Mental Status: He is alert and oriented to person, place, and time. Psychiatric: Mood and Affect: Mood normal. Behavior: Behavior normal. Thought Content: Thought content normal. Medical Decision Making 75 MINUTES SPENT BY ME on the date of service doing chart review, history, exam, documentation & further activities per the note. Data I have personally reviewed the following data over the past 24 hrs: 9.8 \ 12.5 (L) / 296 136 99 33.4 (H) / 124 (H) 3.8 25 1.52 (H) \ ALT: 15 AST: 29 AP: 68 TBILI: 0.5 ALB: 4.3 TOT PROTEIN: 7.1 LIPASE: N/A Procal: N/A CRP: N/A Lactic Acid: 1.4 Imaging results reviewed over the past 24 hrs: No results found for this or any previous visit (from the past 24 hours). Cosigned by Joseph Cortes MD at 11/18/2024 2:12 PM CDT Associated attestation - Joseph Cortes MD - 11/18/2024 2:12 PM CDT Physician Attestation I have reviewed and discussed with the advanced practice provider their history, physical and plan for Gian Romero. I did not participate in a shared visit; this is an advanced practice provider only visit. I did see him briefly and he did tell me that he lives with his daughter but is not sure where would he go from here. He told me that he has other kids but they are all grown up This is a 84-year-old male with medical history which includes hypertension, constipation, BPH withurinary retention, paroxysmal atrial flutter with variable block, history of torsade de pointes whopresented to the ED with chief complaint of problem with the Lozoya catheter. Patient mentioned thatlast time catheter was placed in August and after that it has not been changed and he has noticed that it has been leaking and he denied any abdominal pain, nausea or vomiting and he denied any fever. Labs on presentation pertinent positive included BUN of 33.4, creatinine of 1.52 with GFR of 45 andlactic acid of 1.4. WBC count of 9.8 hemoglobin of 12.5 with platelet count of 296. UA was done which shows nitrite, blood, leukocyte esterase, more than 182 WBCs, RBC, moderate bacteria and urine culture has been ordered. EKG was done which showed normal sinus rhythm History of BPH with urinary retention status chronic Lozoya catheter with likely catheter associatedurinary tract Acute kidney injury Social issues Patient is hemodynamically stable and of note his blood pressure was significantly elevated on admission at 180/149 and given his social situation there might be some compliance issues. Antibiotics have been given in the ED and urology has been consulted -Continue the patient with IV antibiotic -Continue with DEPUTY REGISTER OF DEEDS home medication -Follow culture data -Will need case management consult Joseph Cortes MD Date of Service (when I saw the patient): I did not personally see this patient today. documented in this encounter Consult Notes * Renea Thakkar - 11/20/2024 1:53 PM CDTAssociated Order(s): PHARMACY LIAISON FOR MEDICATION COVERAGE CONSULT Summary: DOAC coverage check Patient has Medicare Advantage through [employer]. Xarelto/Eliquis --Upon receipt of RX, Discharge Pharmacy can provide 1 mo free using one-time parquet floor layer's helper voucher. --Patient is will pay 100% of the first $590 in drug costs ($470 remains; first month will be as much as $517) --Subsequent fills will be $47/mo. --If/when total out of pocket drug costs exceed $2000, patient will pay $0 for all covered drugs for the remainder of the year. If patient cannot afford deductible, I recommend patient consider participating in the Medicare Prescription Payment Plan, which would spread drug costs more evenly throughout the year. Patient may enroll in this program now, or at any time during 2024, by calling the member services phone number for their plan. Renea Thakkar [employer] [facility]/Liaison, Discharge Pharmacy [phone] (voice or text) Pharmacy test claims are estimates and may not reflect final costs. Suggested alternatives aim to be cost-effective but may not be therapeutically equivalent as this consult is informational and does not constitute medical advice. Clinical decisions should be made by qualified healthcare providers. * Sancho Thacker RN - 11/19/2024 3:53 PM CDTAssociated Order(s): CARE MANAGEMENT / SOCIAL WORK IP CONSULT Care Management Follow Up Length of Stay (days): 1 Expected Discharge Date: 11/21/2024 Concerns to be Addressed: discharge planning Patient plan of care discussed at interdisciplinary rounds: Yes Anticipated Discharge Disposition: Home Anticipated Discharge Services: Anticipated Discharge DME: Patient/family educated on Medicare website which has current facility and service quality ratings: Education Provided on the Discharge Plan: Patient/Family in Agreement with the Plan: yes Referrals Placed by CM/SW: Private pay costs discussed: Not applicable Discussed ???Partnership in Safe Discharge Planning??? document with patient/family: No Handoff Completed: No, handoff not indicated or clinically appropriate Additional Information: Consult acknowledged for outpatient follow up. Int consult completed on 11/18. Urology and Cardiology appointment completed and in AVS Next Steps: Cont to follow for,d/c plans Sancho Thacker RN CC [phone] * Arin Patel [facility] - 11/18/2024 11:35 AM CDTAssociated Order(s): CARE MANAGEMENT / SOCIAL WORK IP CONSULT Care Management Initial Consult General Information Assessment completed with: Patient, Type of CM/SW Visit: Initial Assessment Primary Care Provider verified and updated as needed: Yes Readmission within the last 30 days: no previous admission in last 30 days Reason for Consult: discharge planning Advance Care Planning: Advance Care Planning Reviewed: no concerns identified Communication Assessment Patient's communication style: spoken language (Qatari or Bilingual) Cognitive Cognitive/Neuro/Behavioral: Living Environment: People in home: child(que), adult, grandchild(que) Current living Arrangements: house Able to return to prior arrangements: yes Family/Social Support: Care provided by: self Provides care for: no one Marital Status: Support system: Children Description of Support System: Involved Support Assessment: Adequate family and caregiver support Current Resources: Patient receiving home care services: No Community Resources: None Equipment currently used at home: Supplies currently used at home: Employment/Financial: Employment Status: retired Financial Concerns: none Referral to Financial Worker: No Does the patient's insurance plan have a 3 day qualifying hospital stay waiver? No Lifestyle & Psychosocial Needs: Social Drivers of Health Food Insecurity: No Food Insecurity (01/23/2024) [facility] Food Insecurity Do you worry your food will run out before you are able to buy more?: 1 Depression: Not at risk (01/23/2024) [facility] PHQ-2 TOTAL SCORE: 1 Housing Stability: High Risk (01/23/2024) Received from [facility] Housing Stability What is your housing situation today?: 3 Tobacco Use: Low Risk (06/19/2024) Received from [facility] Patient History Smoking Tobacco Use: Never Smokeless Tobacco Use: Never Passive Exposure: Not on file Financial Resource Strain: Low Risk (01/23/2024) Received from [facility] Financial Resource Strain Difficulty of Paying Living Expenses: 3 Difficulty of Paying Living Expenses: Not on file Alcohol Use: Not on file Transportation Needs: Unmet Transportation Needs (01/23/2024) Received from [facility] Transportation Needs Does lack of transportation keep you from medical appointments?: 2 Does lack of transportation keep you from work, meetings or getting things that you need?: 1 Physical Activity: Not on file Interpersonal Safety: Not on file Stress: Not on file Social Connections: Socially Integrated (01/23/2024) Received from [facility] Social Connections Do you often feel lonely or isolated from those around you?: 0 Health Literacy: Not on file Functional Status: Prior to admission patient needed assistance: Dependent ADLs:: Ambulation-cane Dependent IADLs:: Independent Mental Health Status: Mental Health Status: No Current Concerns Chemical Dependency Status: Chemical Dependency Status: No Current Concerns Values/Beliefs: Spiritual, Cultural Beliefs, Confucianism Practices, Values that affect care: no Discussed ???Partnership in Safe Discharge Planning??? document with patient/family: No Additional Information: CARIN met with pt, per MD request. Pt reports his son, Saleem dropped him off this morning at his request. Pt reports his catheter is bothering him and he wanted to come to the ED this morning because hedoes not like having it in. It makes him unhappy. Pt states he lives with his daughter, Patricia, her spouse and two children. Pt's also lives in the home, but they are . Pt does not like living in the home because there are to many people. His son Saleem is visiting from out of state. Ptreports he ambulates with a cane and transfers independently. He typically showers himself, but this has become difficult with the catheter. He takes his own medications. Pt asked if SW had any resources for him in regards to renting a room somewhere so he could move out of his daughters house. SW explained this was not something the hospital SW could help with. SW noted pt's daughter was provided with resources during his stay in August for assisted livings. Pt reports his son, Saleem, will pick him up at time of discharge and take him back to his daughters house. He has his phone number in h is phone. Pt states he told him not to stay because he did not know how long he would be today. Bedside nurse updated. Next Steps: SW available as needed. MARCELA Mckeon, [facility] [phone] Desk phone [phone] Cell/text (Preferred) [facility] documented in this encounter ED Notes * Joselyn Murray RN - 11/18/2024 11:23 AM CDT [facility] ED Nurse Handoff Report ED Chief complaint: Catheter Problem (Leaking cath) ED Diagnosis: Final diagnoses: None Code Status: Full Code Allergies: Allergies Allergen Reactions No Known Drug Allergy Patient Story: Pt presents with the request of wanting his lozoya catheter removed. Lozoya changed. Pt has a UTI. Focused Assessment: Neuro: Alert, oriented x 4 Respiratory:Clear lung sounds, on room air Cardiology: NA Gastrointestinal: soft, non tender, non distended Genitourinary/Renal: UTI lozoya catheter Musculoskeletal: moves all extremities Skin: Intact skin Lines: 18 right AC Labs Ordered and Resulted from Time of ED Arrival to Time of ED Departure COMPREHENSIVE METABOLIC PANEL - Abnormal Result Value Sodium 136 Potassium 3.8 Carbon Dioxide (CO2) 25 Anion Gap 12 Urea Nitrogen 33.4 (*) Creatinine 1.52 (*) GFR Estimate 45 (*) Calcium 9.1 Chloride 99 Glucose 124 (*) Alkaline Phosphatase 68 AST 29 ALT 15 Protein Total 7.1 Albumin 4.3 Bilirubin Total 0.5 ROUTINE UA WITH MICROSCOPIC REFLEX TO CULTURE - Abnormal Color Urine Light Brown (*) Appearance Urine Cloudy (*) Glucose Urine Negative Bilirubin Urine Negative Ketones Urine Trace (*) Specific Senath Urine 1.016 Blood Urine Large (*) pH Urine 6.5 Protein Albumin Urine 70 (*) Urobilinogen Urine Normal Nitrite Urine Positive (*) Leukocyte Esterase Urine Large (*) Bacteria Urine Moderate (*) WBC Clumps Urine Present (*) Mucus Urine Present (*) Amorphous Crystals Urine Few (*) RBC Urine >182 (*) WBC Urine >182 (*) CBC WITH PLATELETS AND DIFFERENTIAL - Abnormal WBC Count 9.8 RBC Count 3.88 (*) Hemoglobin 12.5 (*) Hematocrit 36.5 (*) MCV 94 MCH 32.2 MCHC 34.2 RDW 14.1 Platelet Count 296 % Neutrophils 72 % Lymphocytes 18 % Monocytes 8 % Eosinophils 1 % Basophils 1 % Immature Granulocytes 0 NRBCs per 100 WBC 0 Absolute Neutrophils 7.1 Absolute Lymphocytes 1.8 Absolute Monocytes 0.8 Absolute Eosinophils 0.1 Absolute Basophils 0.1 Absolute Immature Granulocytes 0.0 Absolute NRBCs 0.0 LACTIC ACID WHOLE BLOOD WITH 1X REPEAT IN 2 HR WHEN >2 - Normal Lactic Acid, Initial 1.4 URINE CULTURE No orders to display Treatments and/or interventions provided: Medications sodium chloride 0.9% BOLUS 1,000 mL (1,000 mLs Intravenous $New Bag 11/18/24 1026) cefTRIAXone (ROCEPHIN) 2 g vial to attach to NS 100 ml bag for ADULTS or NS 50 ml bag for PEDS (2 gIntravenous $New Bag 11/18/24 1116) Patient's response to treatments and/or interventions: Resting comfortably To be done/followed up on inpatient unit: See any in-patient orders Does this patient have any cognitive concerns?: Forgetful Activity level - Baseline/Home: Independent Activity Level - Current: Independent 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 Behavioral interventions performed were ED NURSE PHONE NUMBER: *[id number] * Arian Rodriguez MD - 11/18/2024 9:56 AM CDT Emergency Department Note History of Present Illness Chief Complaint Catheter Problem (Leaking cath) CASEY Romero is an 84 year old male on Eliquis with a history of atrial fibrillation with RVR, hypertension, and CKD presenting to the ED for evaluation of a Lozoya catheter problem. The patient reports that his catheter has been leaking and it has apparently not been changed since his hospitalization in August of this year. He denies any abdominal pain. No nausea or vomiting. Of note, the patient is reportedly homeless and is currently staying with his daughter, who he states dropped him off in the ED today. The patient is somewhat of a poor historian as well, but he denies any fevers or other symptoms currently. Independent Historian None Review of External Notes I reviewed the discharge summary from 09/09/24. Past Medical History Medical History and Problem List Hyperlipidemia Hypercholesterolemia Hypertension Paranoia Atrial fibrillation with RVR Torsades de pointes Tage 3b CKD Elevated PSA BPH Depression Medications Pacerone Norvasc Eliquis Flaxseed oil Hydrodiuril Hydrochlorothiazide Lisinopril Niacin Pravachol Simvastatin Flomax Zinc gluconate Surgical History Appendectomy Vasectomy Physical Exam Patient Vitals for the past 24 hrs: BP Temp Temp src Pulse Resp SpO2 11/18/24 1119 (!) 142/105 -- -- 90 -- -- 11/18/24 0954 (!) 180/149 98.7 ??F (37.1 ??C) Temporal 80 18 98 % Physical Exam Nursing note and vitals reviewed. Constitutional: Oriented to person, place, and time. Cooperative. Malodorous. HENT: Nose: Nose normal. Mouth/Throat: Mucous membranes are normal. Eyes: Conjunctivae normal and EOM are normal. Pupils are equal, round, and reactive to light. Neck: Trachea normal. Cardiovascular: Normal rate, regular rhythm, normal heart sounds and normal pulses. No murmur heard. Pulmonary/Chest: Effort normal and breath sounds normal. Abdominal: Soft. Normal appearance and bowel sounds are normal. There is no tenderness. There is no rebound and no CVA tenderness. Musculoskeletal: Extremities atraumatic x 4. Lymphadenopathy: No cervical adenopathy. Neurological: Alert and oriented to person, place, and time. Normal strength. No cranial nerve deficit or sensory deficit. GCS eye subscore is 4. GCS verbal subscore is 5. GCS motor subscore is 6. Skin: Skin is intact. No rash noted. Psychiatric: Normal mood and affect. Diagnostics Lab Results Labs Ordered and Resulted from Time of ED Arrival to Time of ED Departure COMPREHENSIVE METABOLIC PANEL - Abnormal Result Value Sodium 136 Potassium 3.8 Carbon Dioxide (CO2) 25 Anion Gap 12 Urea Nitrogen 33.4 (*) Creatinine 1.52 (*) GFR Estimate 45 (*) Calcium 9.1 Chloride 99 Glucose 124 (*) Alkaline Phosphatase 68 AST 29 ALT 15 Protein Total 7.1 Albumin 4.3 Bilirubin Total 0.5 ROUTINE UA WITH MICROSCOPIC REFLEX TO CULTURE - Abnormal Color Urine Light Brown (*) Appearance Urine Cloudy (*) Glucose Urine Negative Bilirubin Urine Negative Ketones Urine Trace (*) Specific Senath Urine 1.016 Blood Urine Large (*) pH Urine 6.5 Protein Albumin Urine 70 (*) Urobilinogen Urine Normal Nitrite Urine Positive (*) Leukocyte Esterase Urine Large (*) Bacteria Urine Moderate (*) WBC Clumps Urine Present (*) Mucus Urine Present (*) Amorphous Crystals Urine Few (*) RBC Urine >182 (*) WBC Urine >182 (*) CBC WITH PLATELETS AND DIFFERENTIAL - Abnormal WBC Count 9.8 RBC Count 3.88 (*) Hemoglobin 12.5 (*) Hematocrit 36.5 (*) MCV 94 MCH 32.2 MCHC 34.2 RDW 14.1 Platelet Count 296 % Neutrophils 72 % Lymphocytes 18 % Monocytes 8 % Eosinophils 1 % Basophils 1 % Immature Granulocytes 0 NRBCs per 100 WBC 0 Absolute Neutrophils 7.1 Absolute Lymphocytes 1.8 Absolute Monocytes 0.8 Absolute Eosinophils 0.1 Absolute Basophils 0.1 Absolute Immature Granulocytes 0.0 Absolute NRBCs 0.0 LACTIC ACID WHOLE BLOOD WITH 1X REPEAT IN 2 HR WHEN >2 - Normal Lactic Acid, Initial 1.4 URINE CULTURE Imaging No orders to display EKG ECG taken at 1018, ECG read at 1032 Normal sinus rhythm Left axis deviation Anterior infarct, age undetermined No significant change as compared to prior, dated 09/06/24. Rate 86 bpm. MS interval 152 ms. QRS duration 96 ms. QT/QTc 398/476 ms. P-R-T axes 62 -39 -4. Independent Interpretation None ED Course Medications Administered Medications sodium chloride 0.9% BOLUS 1,000 mL (0 mLs Intravenous Stopped 11/18/24 1130) cefTRIAXone (ROCEPHIN) 2 g vial to attach to NS 100 ml bag for ADULTS or NS 50 ml bag for PEDS (0 gIntravenous Stopped 11/18/24 1145) Procedures Procedures Discussion of Management See ED course. ED Course ED Course as of 11/18/24 1223 SatNov 18, 2024 0957 I obtained history and examined the patient as noted above. 1110 I rechecked and updated the patient. 1129 I spoke with Valery Garcia PA-C for hospitalist, Dr. Cortes regarding the patient's history and presentation in the emergency department today. Dr. Cortes accepted the patient for admission. Additional Documentation Social Determinants of Health: Homelessness/Housing Insecurity Medical Decision Making / Diagnosis [facility] Diagnoses: None MIPS Lozoya catheter was inserted because patient had an existing catheter. LUANNE Romero is an 84 year old male who came in for further evaluation of a problem with his Lozoya catheter. It appears that this catheter has not been changed since it was placed either in July or August. While he does not appear septic or toxic, I was quite concerned about a UTI. We change the Lozoya catheter and he had the above blood work obtained as well as a UA. He does have an acute kidney injury as well as a UTI. He was provided IV ceftriaxone as well. His social situation also is somewhat complicated. I had our social scientist in the ER get involved to look at his social situation. However it appears that he should be admitted to the hospital for further evaluation and management regardless. I subsequently spoke with Valery Garcia PA-C for the hospitalist service, who will be taking care of him. Disposition The patient was admitted to the hospital. Diagnosis ICD-10-CM 1. Acute UTI N39.0 2. Acute kidney injury N17.9 Scribe Disclosure: I, Aby Verma, am serving as a scribe at 10:01 AM on 11/18/2024 to document services personallyperformed by Arian Rodriguez MD based on my observations and the provider's statements to me. Arian Rodriguez MD 11/18/24 1225 * Polly Alston RN - 11/18/2024 9:53 AM CDT Pt c/o of leaking catheter documented in this encounter Miscellaneous Notes * Plan of Care - George Moore, PT - 11/20/2024 4:25 PM CDT Physical Therapy: Orders received. Chart reviewed and discussed with care team.? Physical Therapy not indicated following discussion with OT. Patient mobilizing well with OT, currently SBA for all mobility and cares with FWW. Patient lives with family at home who can assist with ADL's/IADL's as needed upon discharge.? OT to continue following and progressing patient's mobility and independence lauri forde in hosital. Defer discharge recommendations to OT.? Will complete orders. * Plan of Care - Dafne Valdez RN - 11/20/2024 5:53 AM CDT Goal Outcome Evaluation: SUMMARY: UTI DATE & TIME: 11/19/24-11/20/24 23:00-07:30 Cognitive Concerns/ Orientation : A&O x 4 BEHAVIOR & AGGRESSION TOOL COLOR: green CIWA SCORE: NA ABNL VS/O2: VSS. On RA MOBILITY: A x1 with belt and walker. PAIN MANAGMENT: Denies DIET: Regular BOWEL/BLADDER: Chronic lozoya, adequate output. Up to bathroom, 1x BM this shift ABNL LAB/BG: Cr 1.38. Mg, Phos, K+ protocol DRAIN/DEVICES: R PIV-SL TELEMETRY RHYTHM: NSR SKIN: Scattered bruises. R knee abrasion with dressing CDI( patient reported abrasion from fall at home). TESTS/PROCEDURES: None D/C DATE: OT recommending discharge home with assist, home OT. Anticipated ready for discharge today OTHER INFO: SW following. Pt slept well throughout the shift with no complaints/issues * Plan of Care - Deb Soria RN - 11/19/2024 11:21 PM CDT Goal Outcome Evaluation: DATE & TIME: 11/19/24, pm shift Cognitive Concerns/ Orientation : A&O x 4 BEHAVIOR & AGGRESSION TOOL COLOR: green CIWA SCORE: NA ABNL VS/O2: VSS. On RA MOBILITY: A x 1 with belt and walker. Up in chair most of the shift. PAIN MANAGMENT: Denies DIET: Regular BOWEL/BLADDER: Continent. No bm. Ambulating to the bathroom. ABNL LAB/BG: Cr 1.38. UC result pending. DRAIN/DEVICES: PIV infusing NS @ 75ml/hr TELEMETRY RHYTHM: NSR SKIN: Scattered bruises. R knee abrasion with dressing CDI( patient reported abrasion from fall at home). TESTS/PROCEDURES: None D/C DATE: OT recommending discharge home with assist, home OT. Possible discharge tomorrow. OTHER INFO: SW following. 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, understands azerbaijani VS/O2: VSS ex tachy at times, RA Mobility: A1 + gb/walker Diet: Regular Pain Management: Denies - PRNs available Neuro: Intact Bowel & Bladder: Chronic lozoya Skin: WDL Abnormal Labs: Alk phos 190, TSH 6.65, WBC 18.7, Mg 1.9 (replacing, recheck in AM) Tele: NSR - had run of afib RVR, self converted, MD aware IV Access/Drips/Fluids: R PIV NS @ 75ml/hr Drains: Lozoya Tests/Imaging: NA Consults: Hospitalist, urology (signed off) Discharge Plan: Pending - will discharge home * Plan of Care - Tania Sweeney RN - 11/19/2024 6:34 AM CDT Goal Outcome Evaluation: Plan of Care Reviewed With: patient Overall Patient Progress: no change DATE & TIME: 11/18/245706-8878 Cognitive Concerns/ Orientation : A&O x4, calm & cooperative. Citizen Of [place] speaking, speaks/understands some Englsh; refused historic interpreter BEHAVIOR & AGGRESSION TOOL COLOR: Green ABNL VS/O2: VSS on RA MOBILITY: SB GB/W PAIN MANAGMENT: Denies DIET: Regular BOWEL/BLADDER: Continent ABNL LAB/BG: Creat 1.52. Recheck electrolytes in AM DRAIN/DEVICES: R PIV infusing NS@50mL/hr TELEMETRY RHYTHM: Switches between bigeminy and NSR. Denies any chest pain or palpitations. SKIN: Scattered bruising and scabbing, coccyx blanchable TESTS/PROCEDURES: None scheduled D/C DAY/GOALS/PLACE: 2 days pending medically ready. Will discharge home with family. SW updated pton this plan. OTHER IMPORTANT INFO: Rocephin q24h. Urology signed off. * Provider Notification - Tania Sweeney RN - 11/18/2024 9:02 PM CDT Notification Notified Person: Notified Person Name: Alicia Notification Date/Time: 11/18/24 2100 Notification Interaction: Vocera Purpose of Notification: FYI - K 3.8 and Mag 1.9. QTc 454 and 501. We are unable to send photos of the EKG but it is uploaded in the results section on [employer]. Orders Received: Recheck electrolytes in AM Comments: * Plan of Care - Marychuy Little RN - 11/18/2024 7:12 PM CDT Orientation: alert and oriented x4- declines historic interpreter Vitals/Tele: vitals stable on room air- slightly elevated blood pressures- PRN hydralazine for SBP>180, denies pain this shift, tele-between normal sinus rhythm and aflutter IV Access/drains: R PIV infusing NS @ 50ml/hr, chronic lozoya Diet: regular Mobility: SBA gb/walker GI/: chronic lozoya, last BM 11/17 Wound/Skin: dry/flaky, blanchable redness to coccyx, scattered bruises and scabs Consults: PT/Ot, CC/SW, Urology Discharge Plan: pending- Pt does not want to discharge to his current living situation (at daughters with who he is from) - SW consulted See Flow sheets for assessment * Provider Notification - Marychuy Little RN - 11/18/2024 6:53 PM CDT Notification Notified Person: Notified Person Name: DrPaul Vargas Notification Date/Time: 11/18 @ 1850 Notification Interaction: amcom paging Purpose of Notification: 65 Romero: FYI-Possible Torsades de Pointes seen on telemetry- Pt asymptomatic, VSSRA, getting 12-lead now. Anything additional? Thanks Marychuy TOMLIN [phone] Orders Received: Comments: * Provider Notification - Marychuy Little RN - 11/18/2024 5:42 PM CDT MD Notification Notified Person: MD Notified Person Name: Valery Garcia NP Notification Date/Time: 11/18 @ 174 Notification Interaction: vocera Purpose of Notification: per your note- DEPUTY REGISTER OF DEEDS anticoagulation should be continued twice daily- not ordered at admission. Would you like to order? Thanks Marychuy TOMLIN [phone] Orders Received: resumed Comments: * Pharmacy-Admission Medication History - Yamileth Beck RPH - 11/18/2024 12:29 PM CDT Pharmacist Admission Medication History Admission medication history is complete. The information provided in this note is only as accurateas the sources available at the time of the update. Information Source(s): Patient, Family member, and CareEverywhere/SureScripts via in-person Pertinent Information: Patient was taking levothyroxine a few months ago, but is no longer taking it. Changes made to [facility]PUT[facility] [employer] [employer] DEEDS medication list: Added: None Deleted: amiodarone, Eliquis, vitamin D, flaxseed oil, garlic, tumeric, ginseng, green tea extract,lisinopril, multivitamin, simvastatin, zinc Changed: None Allergies reviewed with patient and updates made in EHR: yes Medication History Completed By: Yamileth Beck RPH 11/18/2024 12:29 PM [facility] [employer] Med List Medication Sig Last Dose/Taking amLODIPine (NORVASC) 10 MG tablet Take 10 mg by mouth every evening. 11/17/2024 Evening cyanocobalamin (VITAMIN B-12) 1000 MCG tablet Take 1,000 mcg by mouth every evening. 11/17/2024 Evening hydrochlorothiazide (HYDRODIURIL) 25 MG tablet Take 25 mg by mouth every evening. 11/17/2024 Evening niacin 500 MG tablet Take 500 mg by mouth every evening. 11/17/2024 Evening pravastatin (PRAVACHOL) 40 MG tablet Take 40 mg by mouth every evening. 11/17/2024 Evening tamsulosin (FLOMAX) 0.4 MG capsule Take 0.4 mg by mouth every evening. 11/17/2024 Evening documented in this encounter Plan of Treatment Not on file documented as of this encounter Procedures Procedure Name Priority Date/Time Associated Diagnosis Comments PHOSPHORUS Routine 11/20/2024 9:42 AM CDT MAGNESIUM Routine 11/20/2024 9:42 AM CDT BASIC METABOLIC PANEL Routine 11/20/2024 9:42 AM CDT CBC WITH PLATELETS Routine 11/20/2024 9: 42 AM CDT UA MACROSCOPIC WITH REFLEX TO MICRO AND CULTURE Routine 11/19/2024 9:27 AM CDT URINE CULTURE Routine 11/19/2024 9:27 AM CDT EKG 12-LEAD, TRACING ONLY STAT 11/19/2024 9:22 AM CDT PHOSPHORUS Routine 11/19/2024 9:20 AM CDT MAGNESIUM Routine 11/19/2024 9:20 AM CDT BASIC METABOLIC PANEL Routine 11/19/2024 9:20 AM CDT CBC WITH PLATELETS Routine 11/19/2024 9: 20 AM CDT POTASSIUM STAT 11/18/2024 8:28 PM CDT MAGNESIUM STAT 11/18/2024 8:28 PM CDT EKG 12-LEAD, TRACING ONLY Routine 11/18/2024 6:55 PM CDT EKG 12-LEAD, TRACING ONLY STAT 11/18/2024 6:54 PM CDT ROUTINE UA WITH MICROSCOPIC REFLEX TO CULTURE STAT 11/18/2024 10:21 AM CDT URINE CULTURE STAT 11/18/2024 10:21 AM CDT LACTIC ACID WHOLE BLOOD WITH 1X REPEAT IN 2 HR WHEN >2 STAT 11/18/2024 10:19 AM CDT CBC WITH PLATELETS AND DIFFERENTIAL STAT 11/18/2024 10:19 AM CDT CBC WITH PLATELETS & DIFFERENTIAL STAT 11/18/2024 10:19 AM CDT PHOSPHORUS Add-On 11/18/2024 10:19 AM CDT MAGNESIUM Add-On 11/18/2024 10:19 AM CDT COMPREHENSIVE METABOLIC PANEL STAT 11/18/2024 10:19 AM CDT EKG 12-LEAD, TRACING ONLY STAT 11/18/2024 10:18 AM CDT documented in this encounter Results * (ABNORMAL) CBC with platelets (11/20/2024 9:42 AM CDT) [facility] WBC Count 7.3 4.0 - 11.0 10e3/uL [...] 150 - 450 10e3/uL 11/20/2024 9:53 AM [facility] Blood BLOOD SPECIMEN / Unknown Venipuncture / Unknown 11/20/2024 9:42 AM CDT 11/20/2024 9:50 AM CDT us Carlton Sultana MD LAB - BLOOD ORDERABLES Final Result LABORATORY [facility] [address], [address] [place] [address], [facility] [phone] * (ABNORMAL) Basic metabolic panel (11/20/2024 9:42 AM CDT) Sodium 136 135 - 145 mmol/L 11/20/2024 10:10 AM [facility] Potassium 4.3 3.4 - 5.3 mmol/L 11/20/2024 10:10 AM CDT LABORATORY Chloride 101 98 - 107 mmol/L 11/20/2024 10:10 AM [facility] Carbon Dioxide (CO2) 26 22 - 29 mmol/L 11/20/2024 10:10 AM CDT LABORATORY Anion Gap 9 7 - 15 mmol/L 11/20/2024 10:10 AM CDT LABORATORY Urea Nitrogen 28.7(H) 8.0 - 23.0 mg/dL 11/20/2024 10:10 AM CDT LABORATORY Creatinine 1.15 0.67 - 1.17 mg/dL 11/20/2024 10:10 AM CDT LABORATORY GFR Estimate 62 >60 mL/min/1.7 3m2 11/20/2024 10:10 AM CDT LABORATORY Comment:eGFR calculated usin 2020 CKD-EPI equation. Calcium 8.8 8.8 - 10.4 mg/dL 11/20/2024 10:10 AM CDT LABORATORY Glucose 162(H) 70 - 99 mg/dL 11/20/2024 10:10 AM CDT LABORATORY Blood BLOOD SPECIMEN / Unknown Venipuncture / Unknown 11/20/2024 9:42 AM CDT 11/20/2024 9:50 AM CDT Carlton Sultana MD LAB - BLOOD ORDERABLES Final Result LABORATORY [facility] [address], [address] [address], [facility] [phone] * (ABNORMAL) Phosphorus (11/20/2024 9:42 AM CDT) Phosphorus 2.4(L) 2.5 - 4.5 mg/dL 11/20/2024 10:10 AM CDT LABORATORY Blood BLOOD SPECIMEN / Unknown Venipuncture / Unknown 11/20/2024 9:42 AM CDT 11/20/2024 9:50 AM CDT Carlton Sultana MD LAB - BLOOD ORDERABLES Final Result LABORATORY [facility] [address], [address] [place] [address], [facility] [phone] * Magnesium (11/20/2024 9:42 AM CDT) Magnesium 2.0 1.7 - 2.3 mg/dL 11/20/2024 10:10 AM CDT LABORATORY Blood BLOOD SPECIMEN / Unknown Venipuncture / Unknown 11/20/2024 9:42 AM CDT 11/20/2024 9:50 AM CDT Carlton Sultana MD LAB - BLOOD ORDERABLES Final Result LABORATORY [facility] [address], [address] [place] [address], [facility] [phone] * Urine Culture (11/19/2024 9:27 AM CDT) Culture 10,000-50,000 CFU/mL Mixture of Urogenital Ernestina 11/20/2024 7:49 AM CDT [facility] Urine URINE SPECIMEN OBTAINED VIA [facility]WELLING URINARY CATHETER / Unknown Non-blood Collection / Unknown 11/19/2024 9:27 AM CDT 11/19/2024 9:45 AM CDT Carlton Sultana MD LAB - MICRO GENERAL ORDERABLE S Final Result [facility]ORAT[facility] Inf. Diseases Diag. Lab [address] [facility], [address] [place] [address], [facility] * (ABNORMAL) UA Macroscopic with reflex to [...] mg/dL 11/19/2024 9:45 AM CDT LABORATORY Specific Senath Urine 1.018 1.003 - 1.035 11/19/2024 9:45 [...] LAB - URINE ORDERABLES Final Result LABORATORY [facility] [address], [address] [place] [address], [facility] [phone] * EKG 12-lead, tracing only (11/19/2024 9:22 AM CDT) Systolic Blood Pressure mmHg RADIOLOGY RESULTS Diastolic Blood Pressure mmHg RADIOLOGY RESULTS Ventricular Rate 86 BPM RAD IOLOGY RESULTS Atrial Rate 86 BPM RADIOLOG Y RESULTS MS Interval 154 ms RADIOLOG Y RESULTS QRS Duration 92 ms RADIOLO GY RESULTS QT 384 ms RADIOLOGY RESULTS QTc 459 ms RADIOLOGY RESULTS P [place] 39 degrees RADIOLOGY RESULTS R AXIS -54 degrees RADIOLOGY RESULTS T [place] 41 degrees RADIOLOGY RESULTS Interpretation ECG Sinus rhythm Left axis deviation Anterolateral infarct (cited on or before 18-Nov-2024) Abnormal ECG When compared with ECG of 18-Nov-2024 18:55, Questionable change in initial forces of Anterolateral leads Confirmed by LAURITA SALCEDO ([id number]) on 11/19/2024 1:16:28 PM RADIOLOGY RESULTS 11/19/2024 9:22 AM CDT 11/19/2024 1:16 PM CDT Carlton Sultana MD ECG ORDERABLES Edited Result - Final RADIOLOGY RESULTS * Magnesium (11/19/2024 9:20 AM CDT) Magnesium 1.9 1.7 - 2.3 mg/dL 11/19/2024 10:45 AM CDT LABORATORY Blood STRUCTURE OF LEFT UPPER LIMB / Unknown Venipuncture / Unknown 11/19/2024 9:20 AM CDT 11/19/2024 9:27 AM CDT Valery Garcia REGULATORY ANALYST LAB - BLOOD ORDERABLES María l Result Performing Organization Address City/[facility]/ZIP Co de Phone Number [facility] [address], [address] [place] [address], [facility] [phone] * Phosphorus (11/19/2024 9:20 AM CDT) Phosphorus 2.8 2.5 - 4.5 mg/dL 11/19/2024 10:45 AM CDT LABORATORY Blood STRUCTURE OF LEFT UPPER LIMB / Unknown Venipuncture / Unknown 11/19/2024 9:20 AM CDT 11/19/2024 9:27 AM CDT Valery Garcia REGULATORY ANALYST LAB - BLOOD ORDERABLES María l Result [facility] [address], [address] [place] [address], [facility] [phone] * (ABNORMAL) CBC with platelets (11/19/2024 9:20 AM CDT) [facility] WBC Count 7.5 4.0 - 11.0 10e3/uL 11/19/2024 9:29 AM CDT LABORATORY RBC Count 3.55(L) 4.40 - 5.90 10e6/uL 11/19/2024 9:29 AM CDT LABORATORY Hemoglobin 11.3(L) 13.3 - 17.7 g/dL 11/19/2024 9:29 AM CDT LABORATORY Hematocrit 34.0(L) 40.0 - 53.0 % 11/19/2024 9:29 AM CDT LABORATORY MCV 96 78 - 100 fL 11/19/2024 9:29 AM CDT LABORATORY MCH 31.8 26.5 - 33.0 pg 11/19/2024 9:29 AM CDT LABORATORY MCHC 33.2 31.5 - 36.5 g/dL 11/19/2024 9:29 AM CDT LABORATORY RDW 13.9 10.0 - 15.0 % 11/19/2024 9:29 AM CDT LABORATORY Platelet Count 260 150 - 450 10e3/uL 11/19/2024 9:29 AM CDT LABORATORY Blood STRUCTURE OF LEFT UPPER LIMB / Unknown Venipuncture / Unknown 11/19/2024 9:20 AM CDT 11/19/2024 9:27 AM CDT us Valery Garcia NP LAB - BLOOD ORDERABLES María l Result LABORATORY [facility] [address], [address] [place] [address], [facility] [phone] * (ABNORMAL) Basic metabolic panel (11/19/2024 9:20 AM CDT) [facility] Sodium 140 135 - 145 mmol/L 11/19/2024 10:45 AM CDT LABORATORY Potassium 3.8 3.4 - 5.3 mmol/L 11/19/2024 10:45 AM CDT LABORATORY Chloride 105 98 - 107 mmol/L 11/19/2024 10:45 AM CDT LABORATORY Carbon Dioxide (CO2) 23 22 - 29 mmol/L 11/19/2024 10:45 AM CDT LABORATORY Anion Gap 12 7 - 15 mmol/L 11/19/2024 10:45 AM CDT LABORATORY Urea Nitrogen 26.7(H) 8.0 - 23.0 mg/dL 11/19/2024 10:45 AM CDT LABORATORY Creatinine 1.38(H) 0.67 - 1.17 mg/dL 11/19/2024 10:45 AM CDT LABORATORY GFR Estimate 50(L) >60 mL/min/1.7 3m2 11/19/2024 10:45 AM CDT LABORATORY Comment:eGFR calculated usin 2020 CKD-EPI equation. Calcium 8.8 8.8 - 10.4 mg/dL 11/19/2024 10:45 AM CDT LABORATORY Glucose 130(H) 70 - 99 mg/dL 11/19/2024 10:45 AM CDT LABORATORY Blood STRUCTURE OF LEFT UPPER LIMB / Unknown Venipuncture / Unknown 11/19/2024 9:20 AM CDT 11/19/2024 9:27 AM CDT Valery Garcia REGULATORY ANALYST LAB - BLOOD ORDERABLES María l Result LABORATORY [facility] [address] 1[address] floor, [address] [place] [address], [facility] [phone] * Magnesium (11/18/2024 8:28 PM CDT) Magnesium 1.9 1.7 - 2.3 mg/dL 11/18/2024 8:58 PM CDT LABORATORY Blood STRUCTURE OF LEFT UPPER LIMB / Unknown Venipuncture / Unknown 11/18/2024 8:28 PM CDT 11/18/2024 8:33 PM CDT us Shasha Vargas MD LAB - BLOOD ORDERABLES Fi nal Result LABORATORY [facility] [address] 1[address] floor, [address] [place] [address], [facility] [phone] * Potassium (11/18/2024 8:28 PM CDT) Potassium 3.8 3.4 - 5.3 mmol/L 11/18/2024 8:58 PM CDT LABORATORY Blood STRUCTURE OF LEFT UPPER LIMB / Unknown Venipuncture / Unknown 11/18/2024 8:28 PM CDT 11/18/2024 8:33 PM CDT us Shasha Vargas MD LAB - BLOOD ORDERABLES Fi nal Result Performing Organization Address City/[facility]/ZIP Co de Phone Number LABORATORY [facility] [address] 1[address] floor, [address] [place] [address], [facility] [phone] * EKG 12-lead, tracing only (11/18/2024 6:55 PM CDT) Systolic Blood Pressure mmHg RADIOLOGY RESULTS Diastolic Blood Pressure mmHg RADIOLOGY RESULTS Ventricular Rate 80 BPM RAD IOLOGY RESULTS Atrial Rate 80 BPM RADIOLOG Y RESULTS MS Interval 156 ms RADIOLOG Y RESULTS QRS Duration 94 ms RADIOLO GY RESULTS QT 394 ms RADIOLOGY RESULTS QTc 454 ms RADIOLOGY RESULTS P [place] 43 degrees RADIOLOGY RESULTS R AXIS -43 degrees RADIOLOGY RESULTS T [place] 57 degrees RADIOLOGY RESULTS Interpretation ECG Sinus rhythm Left axis deviation Possible Lateral infarct (cited on or before 18-Nov-2024) Abnormal ECG When compared with ECG of 18-Nov-2024 18:54, (unconfirmed) Sinus rhythm has replaced Atrial fibrillation Confirmed by MD BINU, CINDY ([id number]) on 11/19/2024 8:24:54 AM RADIOLOGY RESULTS 11/18/2024 6:55 PM CDT 11/19/2024 8:24 AM CDT Valery Garcia REGULATORY ANALYST ECG ORDERABLES Edited [facility] - Final Performing Organization Address [facility] Co de Phone Number RADIOLOGY RESULTS * EKG 12-lead, tracing only (11/18/2024 6:54 PM CDT) Systolic Blood Pressure mmHg RADIOLOGY RESULTS Diastolic Blood Pressure mmHg RADIOLOGY RESULTS Ventricular Rate 108 BPM RAD IOLOGY RESULTS Atrial Rate 141 BPM RADIOLOG Y RESULTS MS Interval ms RADIOLOG Y RESULTS QRS Duration 94 ms RADIOLO GY RESULTS QT 374 ms RADIOLOGY RESULTS QTc 501 ms RADIOLOGY RESULTS P [place] degrees RADIOLOGY RESULTS R AXIS -51 degrees RADIOLOGY RESULTS T [place] 73 degrees RADIOLOGY RESULTS Interpretation ECG Atrial fibrillation with rapid ventricular response Left axis deviation Possible Lateral infarct (cited on or before 18-Nov-2024) Abnormal ECG When compared with ECG of 18-Nov-2024 10:18, Atrial fibrillation has replaced Sinus rhythm ST no longer depressed in Lateral leads T wave inversion no longer evident in Inferior leads Confirmed by MD BINU, CINDY ([id number]) on 11/19/2024 8:25:02 AM RADIOLOGY RESULTS 11/18/2024 6:54 PM CDT 11/19/2024 8:25 AM CDT Valery Garcia REGULATORY ANALYST ECG ORDERABLES Edited [facility] Performing Organization Address [facility] de Phone Number RADIOLOGY RESULTS * Urine Culture (11/18/2024 10:21 AM CDT) Pathologist [facility] Culture >100,000 CFU/mL Mixture of Urogenital Ernestina 11/19/2024 6:13 AM CDT [facility] Urine URINE SPECIMEN OBTAINED VIA INDWELLING URINARY CATHETER / Unknown Non-blood Collection / Unknown 11/18/2024 10:21 AM CDT 11/18/2024 10:40 AM CDT Narrative [facility] - 11/19/2024 6:13 AM CDT Multiple morphotypes present with no predominant organism. Growth consistent with probable contamination during collection. Suggest repeat specimen if clinically indicated. Arian Rodriguez MD LAB - MICRO GENERAL ORDERAB LES Final Result [facility] Inf. Diseases Diag. Lab [address] [facility] [address] [facility], [address] [place] [address] * (ABNORMAL) UA with Microscopic reflex to Culture (11/18/2024 10:21 AM CDT) Color Urine Light Brown(A) Colorless, Straw, Light Yellow, Yellow 11/18/2024 10:40 AM [facility] Appearance Urine Cloudy(A) Clear 11/19/19 10:40 AM [facility] Glucose Urine Negative Negative mg/dL 11/18/2024 10:40 AM [facility] Bilirubin Urine Negative Negative 10:40 AM [facility] Ketones Urine Trace(A) Negative mg/dL 11/18/2024 10:40 AM [facility] Specific Senath Urine 1.016 1.003 - 1.035 11/18/2024 10:40 AM [facility] Blood Urine Large(A) Negative 11/18/2024 10:40 AM [facility] pH Urine 6.5 5.0 - 7.0 11/18/2024 10:40 AM [facility] Protein Albumin Urine 70(A) Negative mg/dL 11/18/2024 10:40 AM [facility] Urobilinogen Urine Normal Normal mg/dL 11/18/2024 10:40 AM [facility] Nitrite Urine Positive(A) Negative 11/18/2024 10:40 AM [facility] Leukocyte Esterase Urine Large(A) Negative 11/18/2024 10:40 AM [facility] Bacteria Urine Moderate(A) None Seen /HPF 11/18/2024 10:40 AM [facility] WBC Clumps Urine Present(A) None Seen /HPF 11/18/2024 10:40 AM [facility] Mucus Urine Present(A) None Seen /LPF 11/18/2024 10:40 AM [facility] Amorphous Crystals Urine Few(A) None Seen /HPF 11/18/2024 10:40 AM [facility] RBC Urine >182(H) <=2 /HPF 11/18/2024 10:40 AM [facility] WBC Urine >182(H) <=5 /HPF 11/18/2024 10:40 AM CDT LABORATORY Urine URINE SPECIMEN OBTAINED VIA INDWELLING URINARY CATHETER / Unknown Non-blood Collection / Unknown 11/18/2024 10:21 AM CDT 11/18/2024 10:29 AM CDT Narrative LABORATORY - 11/18/2024 10:40 AM CDT Urine Culture ordered based on laboratory criteria Arian Rodriguez MD LAB - URINE ORDERABLES María l Result LABORATORY [facility] [address] 1[address], [address] [place] [address], [place] [phone] * Phosphorus (11/18/2024 10:19 AM CDT) Phosphorus 3.1 2.5 - 4.5 mg/dL 11/18/2024 12:58 PM CDT LABORATORY Blood BLOOD SPECIMEN / Unknown Venipuncture / Unknown 11/18/2024 10:19 AM CDT 11/18/2024 10:31 AM CDT Valery Garcia NP LAB - BLOOD ORDERABLES María l Result Performing Organization Address City/[facility]/ZIP Co de Phone Number LABORATORY [facility] [address], [address] [place] [address], [place] [phone] * Magnesium (11/18/2024 10:19 AM CDT) Magnesium 2.2 1.7 - 2.3 mg/dL 11/18/2024 12:58 PM CDT LABORATORY Blood BLOOD SPECIMEN / Unknown Venipuncture / Unknown 11/18/2024 10:19 AM CDT 11/18/2024 10:31 AM CDT Valery Garcia NP LAB - BLOOD ORDERABLES María l Result LABORATORY [facility] [address], [address] [place] [address], [facility] [phone] * (ABNORMAL) CBC with platelets and differential (11/18/2024 10:19 AM CDT) WBC Count 9.8 4.0 - 11.0 10e3/uL [...] 10:19 AM CDT 11/18/2024 10:31 AM CDT [facility] LAB - BLOOD ORDERABLES María l Result [facility] [address], [address] [place] [address], [facility] [phone] * Lactic Acid Whole Blood with 1X Repeat in 2 HR when >2 (11/18/2024 10:19 AM CDT) Lactic Acid, Initial 1.4 0.7 - 2.0 mmol/L 11/18/2024 10:31 AM CDT LABORATORY Blood BLOOD SPECIMEN / Unknown Venipuncture / Unknown 11/18/2024 10:19 AM CDT 11/18/2024 10:30 AM CDT Arian Rodriguez MD LAB - BLOOD ORDERABLES María l Result [facility] [address] 1[address], [address] [place] [address], [facility] [phone] * (ABNORMAL) Comprehensive metabolic panel (11/18/2024 10:19 AM [facility]) [facility] Sodium 136 135 - 145 mmol/L 11/18/2024 10:55 AM [facility] Potassium 3.8 3.4 - 5.3 mmol/L 11/18/2024 10:55 AM [facility] Carbon Dioxide (CO2) 25 22 - 29 mmol/L 11/18/2024 10:55 AM [facility] Anion Gap 12 7 - 15 mmol/L 11/18/2024 10:55 AM [facility] Urea Nitrogen 33.4(H) 8.0 - 23.0 mg/dL 11/18/2024 10:55 AM [facility] Creatinine 1.52(H) 0.67 - 1.17 mg/dL 11/18/2024 10:55 AM [facility] GFR Estimate 45(L) >60 mL/min/1.7 3m2 11/18/2024 10:55 AM [facility] Comment:eGFR calculated usia 2020 CKD-EPI equation. Calcium 9.1 8.8 - 10.4 mg/dL 11/18/2024 10:55 AM [facility] Chloride 99 98 - 107 mmol/L 11/18/2024 10:55 AM [facility] Glucose 124(H) 70 - 99 mg/dL 11/18/2024 10:55 AM [facility] Alkaline Phosphatase 68 40 - 150 U/L 11/18/2024 10:55 AM [facility] AST 29 0 - 45 U/L 11/18/2024 10:55 AM [facility] ALT 15 0 - 70 U/L 11/18/2024 10:55 AM [facility] Protein Total 7.1 6.4 - 8.3 g/dL 11/18/2024 10:55 AM [facility] Albumin 4.3 3.5 - 5.2 g/dL 11/18/2024 10:55 AM [facility] Bilirubin Total 0.5 <=1.2 mg/dL 11/18/2024 10:55 AM [facility] Blood BLOOD SPECIMEN / Unknown Venipuncture / Unknown 11/18/2024 10:19 AM CDT 11/18/2024 10:31 AM CDT Arian Rodriguez MD LAB - BLOOD ORDERABLES María matthew Result LABORATORY [facility] [address], [address] [place] [address], [facility] [phone] * EKG 12-lead, tracing only (11/18/2024 10:18 AM CDT) Systolic Blood Pressure mmHg RADIOLOGY RESULTS Diastolic Blood Pressure mmHg RADIOLOGY RESULTS Ventricular Rate 86 BPM RAD IOLOGY RESULTS Atrial Rate 86 BPM RADIOLOG Y RESULTS MS Interval 152 ms RADIOLOG Y RESULTS QRS Duration 96 ms RADIOLO GY RESULTS QT 398 ms RADIOLOGY RESULTS QTc 476 ms RADIOLOGY RESULTS P [place] 62 degrees RADIOLOGY RESULTS R AXIS -39 degrees RADIOLOGY RESULTS T [place] -4 degrees RADIOLOGY RESULTS Interpretation ECG Sinus rhythm Left axis deviation Anterior infarct , age undetermined Abnormal ECG No previous ECGs available Confirmed by GENERATED REPORT, COMPUTER ([id number]), marketing editor Shira Meier ([id number]) on 11/18/2024 11:03:20 AM RADIOLOGY RESULTS 11/18/2024 10:1 8 AM CDT 11/18/2024 11:03 AM CDT Arian Rodriguez MD ECG ORDERABLES Edited Resu lt - Final RADIOLOGY RESULTS documented in this encounter Visit Diagnoses Diagnosis Atrial fibrillation with RVR (H)- Primary Atrial fibrillation Acute UTI Urinary tract infection, site not specified Acute kidney injury Acute kidney failure, unspecified Acute UTI Urinary tract infection, site not specified Acute kidney injury Acute kidney failure, unspecified documented in this encounter Admitting Diagnoses Diagnosis Acute UTI Urinary tract infection, site not specified Acute kidney injury Acute kidney failure, unspecified documented in this encounter Administered Medications Inactive Administered Medications - up to 3 most recent administrations Medication Order MAR Action Action Date Dose Rate Site acetaminophen (TYLENOL) Suppository 650 mg 650 mg, Rectal, EVERY 4 HOURS PRN, mild pain, other, and adjunct with moderate or severe pain or per patient request, Starting on Sat11/18/24 at 1245, Alternate with ibuprofen if ordered. Maximum acetaminophen dose from all sources = 75 mg/kg/day not to exceed 4 grams/day. acetaminophen (TYLENOL) tablet 650 mg 650 mg, Oral, EVERY 4 HOURS PRN, mild pain, other, and adjunct with moderate or severe pain or per patient request, Starting on Sat11/18/24 at 1245, Alternate with ibuprofen if ordered. Maximum acetaminophen dose from all sources = 75 mg/kg/day not to exceed 4 grams/day. amLODIPine (NORVASC) tablet 10 mg 10 mg, Oral, EVERY EVENING, First dose on Sat11/18/24 at 2000 $Given 11/19/2024 8:03 PM CDT 10 mg $Given 11/18/2024 9:11 PM CDT 10 mg apixaban ANTICOAGULANT (ELIQUIS) tablet 2.5 mg 2.5 mg, Oral, 2 TIMES DAILY, First dose on Sat11/18/24 at 2100, Indications: Afib-non valvularIndications:Afib-non valvular $Given 11/20/2024 9:21 AM CDT 2.5 mg $Given 11/19/2024 8:03 PM CDT 2.5 mg $Given 11/19/2024 9:21 AM CDT 2.5 mg bisacodyl (DULCOLAX) suppository 10 mg 10 mg, Rectal, DAILY PRN, constipation, Starting on Sat11/18/24 at 1245, IF more than 1 constipation PRN medication is ordered, administer step-mon as indicated, moving to the next step ONLY if prior step ineffective. Step 1: senna-docusate (SENOKOT-S; PERICOLACE) OR bisacodyl (DULCOLAX) EC tablet Step 2: polyethylene glycol (MIRALAX/GLYCOLAX) Step 3: bisacodyl (DULCOLAX) suppository Step 4: enema Hold for loose stools. cefTRIAXone (ROCEPHIN) 2 g vial to attach to NS 100 ml bag for ADULTS or NS 50 ml bag for PEDS STAT, 2 g, Intravenous, ONCE, On Sat11/18/24 at 1100, For 1 dose, Lactated Ringer's solution is not compatible with ceftriaxone for injection, Indications: Urinary Tract InfectionIndications:Urinary Tract Infection $New Bag 11/18/2024 11:16 AM CDT 2 g cefTRIAXone (ROCEPHIN) 2 g vial to attach to NS 100 ml bag for ADULTS or NS 50 ml bag for PEDS Routine, 2 g, Intravenous, EVERY 24 HOURS, First dose on Illiana 11/19/24 at 1100, Lactated Ringer's solution is not compatible with ceftriaxone for injection, Indications: Urinary Tract InfectionIndications:Urinary Tract Infection $New Bag 11/19/2024 11:04 AM CDT 2 g hydrALAZINE (APRESOLINE) injection 10 mg 10 mg, Intravenous, EVERY 4 HOURS PRN, high blood pressure, for systolic BP greater than 180 mmHg, Administer over 1 Minutes, Starting on Sat11/18/24 at 1245 hydrALAZINE (APRESOLINE) tablet 10 mg 10 mg, Oral, EVERY 4 HOURS PRN, high blood pressure, for systolic BP greater than 180 mmHg, Starting on Sat11/18/24 at 1245 lidocaine (LMX4) cream Topical, EVERY 1 HOUR PRN, pain, with VAD insertion, Starting on Sat11/18/24 at 1637, Apply at least 30 minutes prior to VAD insertion in divided doses as needed for size of site for insertion. MAX Dose: 2.5 g ( of 5 g tube) Do NOT give if patient has a history of allergy to any local anesthetic or any patsy product. Do NOT use both lidocaine intradermal/subcutaneous injection and the lidocaine cream on the same site. lidocaine 1 % 0.1-1 mL 0.1-1 mL, Other, EVERY 1 HOUR PRN, mild pain with VAD insertion, Starting on Sat11/18/24 at 1637, MAX dose 1 mL subcutaneous OR intradermal along the side of the vein in divided doses as needed for VAD insertion. Do NOT give if patient has a history of allergy to any local anesthetic or any patsy product. Do NOT use both lidocaine intradermal/subcutaneous injection and the lidocaine cream on the same site. magnesium oxide (MAG-OX) tablet 400 mg 400 mg, Oral, EVERY 4 HOURS, First dose on Liliana 11/19/24 at 1100, For 2 doses, Avoid using oral magnesium if patient has current diarrhea. Magnesium level 1.6-2 mg/dL Administer 400 mg ORAL magnesium x 2 doses and recheck magnesium level the AM after the last ORAL dose. Ordered from the Magnesium replacement order set., Magnesium Replacement: Magnesium level 1.6-2 mg/dL, Recheck: Magnesium level next AM $Given 11/19/2024 4:25 PM CDT 400 mg $Given 11/19/2024 11:04 AM CDT 400 mg magnesium oxide (MAG-OX) tablet 400 mg 400 mg, Oral, EVERY 4 HOURS, First dose on Sat11/20/24 at 1130, For 2 doses, Avoid using oral magnesium if patient has current diarrhea. Magnesium level 1.6-2 mg/dL Administer 400 mg ORAL magnesium x 2 doses and recheck magnesium level the AM after the last ORAL dose. Ordered from the Magnesium replacement order set., Magnesium Replacement: Magnesium level 1.6-2 mg/dL, Recheck: Magnesium level next AM $Given 11/20/2024 11:43 AM CDT 400 mg metoprolol tartrate (LOPRESSOR) quarter-tab 6.25 mg 6.25 mg, Oral, EVERY 6 HOURS, First dose on Liliana 11/19/24 at 1000, Tablets can be crushed and given via enteral route. $Given 11/20/2024 9:21 AM CDT 6.25 mg $Given 11/20/2024 4:44 AM CDT 6.25 mg $Given 11/19/2024 9:50 PM CDT 6.25 mg Patient is already receiving anticoagulation with heparin, enoxaparin (LOVENOX), warfarin (COUMADIN) or other anticoagulant medication CONTINUOUS PRN, Starting on Sat11/18/24 at 1638, Until Sat11/20/24 at 1825 polyethylene glycol (MIRALAX) Packet 17 g 17 g, Oral, 2 TIMES DAILY PRN, constipation, Starting on Sat11/18/24 at 1245, IF more than 1 constipation PRN medication is ordered, administer step-mon as indicated, moving to the next step ONLY if prior step ineffective. Step 1: senna-docusate (SENOKOT-S; PERICOLACE) OR bisacodyl (DULCOLAX) EC tablet Step 2: polyethylene glycol (MIRALAX/GLYCOLAX) Step 3: bisacodyl (DULCOLAX) suppository Step 4: enema 1 Packet = 17 grams. Mix each gram with at least 1/2 ounce (15 mL) of water - 8 ounces for 17 g dose, 4 ounces for 8.5 g dose, 2 ounces for 4 g dose. Follow with the same volume of water. Hold for loose stools unless being administered as part of a bowel prep regimen or bowel clean out. potassium & sodium phosphates (NEUTRA-PHOS) Packet 1 packet 1 packet, Oral or Feeding Tube, EVERY 4 HOURS, First dose on Sat11/20/24 at 1130, For 3 doses, Phosphorus level 2-2.4 mg/dL Administer 1 packet of oral or feeding tubephosphorus replacement x 3 doses and recheck phosphorus level next AM. Ordered from the Phosphorus replacement order set., Phosphorus Replacement: Phosphorus level 2-2.4 mg/dL and Creatinine Clearance GREATER than or EQUAL to 30 mL/min, Recheck: Phosphorus level next AM $Given 11/20/2024 11:43 AM CDT 1 packet pravastatin (PRAVACHOL) tablet 40 mg 40 mg, Oral, EVERY EVENING, First dose on Liliana 11/19/24 at 2000 $Given 11/19/2024 8:03 PM CDT 40 mg senna-docusate (SENOKOT-S/PERICOLACE) 8.6-50 MG per tablet 1 tablet 1 tablet, Oral, 2 TIMES DAILY PRN, constipation, Starting on Sat11/18/24 at 1245, If no bowel movement in 24 hours, increase to 2 tablets by mouth. IF more than 1 constipation PRN medication is ordered, administer step-mon as indicated, moving to the next step ONLY if prior step ineffective. Step 1: senna-docusate (SENOKOT-S; PERICOLACE) OR bisacodyl (DULCOLAX) EC tablet Step 2: polyethylene glycol (MIRALAX/GLYCOLAX) Step 3: bisacodyl (DULCOLAX) suppository Step 4: enema Hold for loose stools. senna-docusate (SENOKOT-S/PERICOLACE) 8.6-50 MG per tablet 2 tablet 2 tablet, Oral, 2 TIMES DAILY PRN, constipation, Starting on Sat11/18/24 at 1245, IF more than 1 constipation PRN medication is ordered, administer step-mon as indicated, moving to the next step ONLY if prior step ineffective. Step 1: senna-docusate (SENOKOT-S; PERICOLACE) OR bisacodyl (DULCOLAX) EC tablet Step 2: polyethylene glycol (MIRALAX/GLYCOLAX) Step 3: bisacodyl (DULCOLAX) suppository Step 4: enema Hold for loose stools. sodium chloride (PF) 0.9% PF flush 3 mL 3 mL, Intracatheter, EVERY 8 HOURS SCHEDULED, First dose on Sat11/18/24 at 2200, to lock peripheral IV dormant line sodium chloride (PF) 0.9% PF flush 3 mL 3 mL, Intracatheter, EVERY 1 MIN PRN, line flush, other, to ensure patency or to lock dormant line, Starting on Sat11/18/24 at 1638 sodium chloride 0.9 % infusion at 50 mL/hr, Intravenous, CONTINUOUS, Starting on Sat11/18/24 at 1305, Until Sat11/19/24 at 0704 Rate/Dose Verify 11/18/2024 5:14 PM CDT 50 mL/hr Rate/Dose Verify 11/18/2024 4:13 PM CDT 50 mL/h r $New Bag 11/18/2024 1:26 PM CDT 50 mL/hr sodium chloride 0.9 % infusion at 75 mL/hr, Intravenous, CONTINUOUS, Starting on Sat11/19/24 at 1130, Until Sat11/19/24 at 2329 $New Bag 11/19/2024 11:46 AM CDT 75 mL/hr sodium chloride 0.9% BOLUS 1,000 mL Intravenous, 1,000 mL, ONCE, at 1,000 mL/hr, Administer over 1 Hours, On Sat11/18/24 at 1005, For 1 dose $New Bag 11/18/2024 10:26 AM CDT 1,000 mLs 1000 mL/hr tamsulosin (FLOMAX) capsule 0.4 mg 0.4 mg, Oral, EVERY EVENING, First dose on Sat11/18/24 at 2000, Administer 30 minutes after the same meal each day. Capsules should be swallowed whole; do not crush chew or open. $Given 11/19/2024 8:03 PM CDT 0.4 mg $Given 11/18/2024 9:11 PM CDT 0.4 mg documented in this encounter Active and Recently Administered Medications Times are shown in CDT. Scheduled Medication Order 11/18/2024 11/19/2024 11/20/2024 amLODIPine (NORVASC) tablet 10 mg 10 mg, Oral, EVERY EVENING, First dose on Sat11/18/24 at 1999 2110 ($Given - Provider: Tania Sweeney, SADA) 2002 ($Given - Provider: Deb Soria, SADA) apixaban ANTICOAGULANT (ELIQUIS) tablet 2.5 mg 2.5 mg, Oral, 2 TIMES DAILY, First dose on Sat11/18/24 at 2100, Indications: Afib-non valvular 2110 ($Given - Provider: Tania Sweeney, RN) 920 ($Given - Provider: Marlene Barrera, SADA)2002 ($Given - Provider: Deb Soria, SADA) 09 ($Given - Provider: Amy Eagle RN) cefTRIAXone (ROCEPHIN) 2 g vial to attach to NS 100 ml bag for ADULTS or NS 50 ml bag for PEDS (COMPLETED) STAT, 2 g, Intravenous, ONCE, On Sat11/18/24 at 1100, For 1 dose, Lactated Ringer's solution is not compatible with ceftriaxone for injection, Indications: Urinary Tract Infection 1116 ($New Bag - Provider: Joselyn Murray, SADA)1145 (Stopped - Provider: Joselyn Murray RN) cefTRIAXone (ROCEPHIN) 2 g vial to attach to NS 100 ml bag for ADULTS or NS 50 ml bag for PEDS (CANCELED) Routine, 2 g, Intravenous, EVERY 24 HOURS, First dose on Liliana 11/19/24 at 1100, Lactated Ringer's solution is not compatible with ceftriaxone for injection, Indications: Urinary Tract Infection 1104 ($New Bag - Provider: Marlene Barrera, SADA) hydrochlorothiazide (HYDRODIURIL) tablet 25 mg 25 mg, Oral, EVERY EVENING, First dose on Sat11/18/24 at 1999, On hold since Sat11/18/2024 at 1637 until manually unheld 1637 (Held by provider - Provider: Valery Garcia NP - Reason: Acute Kidney Injury)1999 (Automatically Held) 1999 (Automatically Held) 1824 (Unheld by provider - Provider: Orders Generic Provider) magnesium oxide (MAG-OX) tablet 400 mg (COMPLETED) 400 mg, Oral, EVERY 4 HOURS, First dose on Liliana 11/19/24 at 1100, For 2 doses, Avoid using oral magnesium if patient has current diarrhea. Magnesium level 1.6-2 mg/dL Administer 400 mg ORAL magnesium x 2 doses and recheck magnesium level the AM after the last ORAL dose. Ordered from the Magnesium replacement order set., Magnesium Replacement: Magnesium level 1.6-2 mg/dL, Recheck: Magnesium level next AM 1104 ($Given - Provider: Marlene Barrera RN)1625 ($Given - Provider: Deb Soria RN) magnesium oxide (MAG-OX) tablet 400 mg 400 mg, Oral, EVERY 4 HOURS, First dose on Sat11/20/24 at 1130, For 2 doses, Avoid using oral magnesium if patient has current diarrhea. Magnesium level 1.6-2 mg/dL Administer 400 mg ORAL magnesium x 2 doses and recheck magnesium level the AM after the last ORAL dose. Ordered from the Magnesium replacement order set., Magnesium Replacement: Magnesium level 1.6-2 mg/dL, Recheck: Magnesium level next AM 1143 ($Given - Provider: Amy Eagle RN)1530 (Canceled Entry - Provider: Orders Generic Provider - Comment: Automatically canceled at discontinue of medication order) metoprolol tartrate (LOPRESSOR) quarter-tab 6.25 mg 6.25 mg, Oral, EVERY 6 HOURS, First dose on Sat11/19/24 at 1000, Tablets can be crushed and given via enteral route. 1104 ($Given - Provider: Marlene Barrera RN)1625 ($Given - Provider: Deb Soria RN)2150 ($Given - Provider: Deb Soria RN) 0444 ($Given - Provider: Dafne Valdez RN)0921 ($Given - Provider: Amy Eagle RN)1600 (Canceled Entry - Provider: Orders Generic Provider - Comment: Automatically canceled at discontinue of medication order) potassium & sodium phosphates (NEUTRA-PHOS) Packet 1 packet 1 packet, Oral or Feeding Tube, EVERY 4 HOURS, First dose on Sat11/20/24 at 1130, For 3 doses, Phosphorus level 2-2.4 mg/dL Administer 1 packet of oral or feeding tubephosphorus replacement x 3 doses and recheck phosphorus level next AM. Ordered from the Phosphorus replacement order set., Phosphorus Replacement: Phosphorus level 2-2.4 mg/dL and Creatinine Clearance GREATER than or EQUAL to 30 mL/min, Recheck: Phosphorus level next AM 1143 ($Given - Provider: Amy Eagle RN)1530 (Canceled Entry - Provider: Orders Generic Provider - Comment: Automatically canceled at discontinue of medication order) pravastatin (PRAVACHOL) tablet 40 mg 40 mg, Oral, EVERY EVENING, First dose on Sat11/19/24 at 1999 2002 ($Given - Provider: Deb Soria RN) sodium chloride (PF) 0.9% PF flush 3 mL 3 mL, Intracatheter, EVERY 8 HOURS SCHEDULED, First dose on Sat11/18/24 at 2200, to lock peripheral IV dormant line 2200 (Not Given - Provider: Tania Sweeney RN - Reason: IV Infusing) 0600 (Not Given - Provider: Tania Sweeney RN - Reason: IV Infusing)1315 (Not Given - Provider: Marlene Barrera RN - Reason: IV Infusing)2151 (Not Given - Provider: Deb Soria RN - Reason: Order parameters not met) 0608 (Canceled Entry - Provider: Dafne Valdez, SADA)1400 (Canceled Entry - Provider: Orders Generic Provider - Comment: Automatically canceled at discontinue of medication order) sodium chloride 0.9% BOLUS 1,000 mL (COMPLETED) Intravenous, 1,000 mL, ONCE, at 1,000 mL/hr, Administer over 1 Hours, On Sat11/18/24 at 1005, For 1 dose 1026 ($New Bag - Provider: Joselyn Murray, SADA)1130 (Stopped - Provider: Joselyn Murray, SADA) tamsulosin (FLOMAX) capsule 0.4 mg 0.4 mg, Oral, EVERY EVENING, First dose on Sat11/18/24 at 1999, Administer 30 minutes after the same meal each day. Capsules should be swallowed whole; do not crush chew or open. 2110 ($Given - Provider: Tania Sweeney RN) 2002 ($Given - Provider: Deb Soria RN) Continuous Medication Order 11/18/2024 11/19/2024 11/20/2024 sodium chloride 0.9 % infusion () at 50 mL/hr, Intravenous, CONTINUOUS, Starting on Sat11/18/24 at 1305, Until Liliana 11/19/24 at 0704 1326 ($New Bag - Provider: Joselyn Murray RN)1613 (Rate/Dose Verify - Provider: Joselyn Murray RN)1614 (ED/Periop/Clinic Infusing on Admission/transfer - Provider: Joselyn Murray RN)1714 (Rate/Dose Verify - Provider: Marychuy Little RN) sodium chloride 0.9 % infusion () at 75 mL/hr, Intravenous, CONTINUOUS, Starting on Liliana 11/19/24 at 1130, Until Liliana 11/19/24 at 2329 1146 ($New Bag - Provider: Marlene Barrera RN)2356 (Infusion stopped per MD order - Provider: Dafne Valdez RN) PRN Medication Order 11/18/2024 11/19/2024 11/20/2024 acetaminophen (TYLENOL) Suppository 650 mg(Linked Group 1) 650 mg, Rectal, EVERY 4 HOURS PRN, mild pain, other, and adjunct with moderate or severe pain or per patient request, Starting on Sat11/18/24 at 1245, Alternate with ibuprofen if ordered. Maximum acetaminophen dose from all sources = 75 mg/kg/day not to exceed 4 grams/day. acetaminophen (TYLENOL) tablet 650 mg(Linked Group 1) 650 mg, Oral, EVERY 4 HOURS PRN, mild pain, other, and adjunct with moderate or severe pain or per patient request, Starting on Sat11/18/24 at 1245, Alternate with ibuprofen if ordered. Maximum acetaminophen dose from all sources = 75 mg/kg/day not to exceed 4 grams/day. bisacodyl (DULCOLAX) suppository 10 mg 10 mg, Rectal, DAILY PRN, constipation, Starting on Sat11/18/24 at 1245, IF more than 1 constipation PRN medication is ordered, administer step-mon as indicated, moving to the next step ONLY if prior step ineffective. Step 1: senna-docusate (SENOKOT-S; PERICOLACE) OR bisacodyl (DULCOLAX) EC tablet Step 2: polyethylene glycol (MIRALAX/GLYCOLAX) Step 3: bisacodyl (DULCOLAX) suppository Step 4: enema Hold for loose stools. hydrALAZINE (APRESOLINE) injection 10 mg(Linked Group 2) 10 mg, Intravenous, EVERY 4 HOURS PRN, high blood pressure, for systolic BP greater than 180 mmHg, Administer over 1 Minutes, Starting on Sat11/18/24 at 1245 hydrALAZINE (APRESOLINE) tablet 10 mg(Linked Group 2) 10 mg, Oral, EVERY 4 HOURS PRN, high blood pressure, for systolic BP greater than 180 mmHg, Starting on Sat11/18/24 at 1245 lidocaine (LMX4) cream Topical, EVERY 1 HOUR PRN, pain, with VAD insertion, Starting on Sat11/18/24 at 1637, Apply at least 30 minutes prior to VAD insertion in divided doses as needed for size of site for insertion. MAX Dose: 2.5 g ( of 5 g tube) Do NOT give if patient has a history of allergy to any local anesthetic or any patsy product. Do NOT use both lidocaine intradermal/subcutaneous injection and the lidocaine cream on the same site. lidocaine 1 % 0.1-1 mL 0.1-1 mL, Other, EVERY 1 HOUR PRN, mild pain with VAD insertion, Starting on Sat11/18/24 at 1637, MAX dose 1 mL subcutaneous OR intradermal along the side of the vein in divided doses as needed for VAD insertion. Do NOT give if patient has a history of allergy to any local anesthetic or any patsy product. Do NOT use both lidocaine intradermal/subcutaneous injection and the lidocaine cream on the same site. Patient is already receiving anticoagulation with heparin, enoxaparin (LOVENOX), warfarin (COUMADIN) or other anticoagulant medication CONTINUOUS PRN, Starting on Sat11/18/24 at 1638, Until Sat11/20/24 at 1825 polyethylene glycol (MIRALAX) Packet 17 g 17 g, Oral, 2 TIMES DAILY PRN, constipation, Starting on Sat11/18/24 at 1245, IF more than 1 constipation PRN medication is ordered, administer step-mon as indicated, moving to the next step ONLY if prior step ineffective. Step 1: senna-docusate (SENOKOT-S; PERICOLACE) OR bisacodyl (DULCOLAX) EC tablet Step 2: polyethylene glycol (MIRALAX/GLYCOLAX) Step 3: bisacodyl (DULCOLAX) suppository Step 4: enema 1 Packet = 17 grams. Mix each gram with at least 1/2 ounce (15 mL) of water - 8 ounces for 17 g dose, 4 ounces for 8.5 g dose, 2 ounces for 4 g dose. Follow with the same volume of water. Hold for loose stools unless being administered as part of a bowel prep regimen or bowel clean out. senna-docusate (SENOKOT-S/PERICOLACE) 8.6-50 MG per tablet 1 tablet(Linked Group 3) 1 tablet, Oral, 2 TIMES DAILY PRN, constipation, Starting on Sat11/18/24 at 1245, If no bowel movement in 24 hours, increase to 2 tablets by mouth. IF more than 1 constipation PRN medication is ordered, administer step-mon as indicated, moving to the next step ONLY if prior step ineffective. Step 1: senna-docusate (SENOKOT-S; PERICOLACE) OR bisacodyl (DULCOLAX) EC tablet Step 2: polyethylene glycol (MIRALAX/GLYCOLAX) Step 3: bisacodyl (DULCOLAX) suppository Step 4: enema Hold for loose stools. senna-docusate (SENOKOT-S/PERICOLACE) 8.6-50 MG per tablet 2 tablet(Linked Group 3) 2 tablet, Oral, 2 TIMES DAILY PRN, constipation, Starting on Sat11/18/24 at 1245, IF more than 1 constipation PRN medication is ordered, administer step-mon as indicated, moving to the next step ONLY if prior step ineffective. Step 1: senna-docusate (SENOKOT-S; PERICOLACE) OR bisacodyl (DULCOLAX) EC tablet Step 2: polyethylene glycol (MIRALAX/GLYCOLAX) Step 3: bisacodyl (DULCOLAX) suppository Step 4: enema Hold for loose stools. sodium chloride (PF) 0.9% PF flush 3 mL 3 mL, Intracatheter, EVERY 1 MIN PRN, line flush, other, to ensure patency or to lock dormant line, Starting on Sat11/18/24 at 1638 Linked Groups Order Group 1: acetaminophen (TYLENOL) tablet 650 mgJump to med 650 mg, Oral, EVERY 4 HOURS PRN, mild pain, other, and adjunct with moderate or severe pain or per patient request, Starting on Sat11/18/24 at 1245, Alternate with ibuprofen if ordered. Maximum acetaminophen dose from all sources = 75 mg/kg/day not to exceed 4 grams/day. Or acetaminophen (TYLENOL) Suppository 650 mgJump to med 650 mg, Rectal, EVERY 4 HOURS PRN, mild pain, other, and adjunct with moderate or severe pain or per patient request, Starting on Sat11/18/24 at 1245, Alternate with ibuprofen if ordered. Maximum acetaminophen dose from all sources = 75 mg/kg/day not to exceed 4 grams/day. Group 2: hydrALAZINE (APRESOLINE) tablet 10 mgJump to med 10 mg, Oral, EVERY 4 HOURS PRN, high blood pressure, for systolic BP greater than 180 mmHg, Starting on Sat11/18/24 at 1245 Or hydrALAZINE (APRESOLINE) injection 10 mgJump to med 10 mg, Intravenous, EVERY 4 HOURS PRN, high blood pressure, for systolic BP greater than 180 mmHg, Administer over 1 Minutes, Starting on Sat11/18/24 at 1245 Group 3: senna-docusate (SENOKOT-S/PERICOLACE) 8.6-50 MG per tablet 1 tabletJump to med 1 tablet, Oral, 2 TIMES DAILY PRN, constipation, Starting on Sat11/18/24 at 1245, If no bowel movement in 24 hours, increase to 2 tablets by mouth. IF more than 1 constipation PRN medication is ordered, administer step-mon as indicated, moving to the next step ONLY if prior step ineffective. Step 1: senna-docusate (SENOKOT-S; PERICOLACE) OR bisacodyl (DULCOLAX) EC tablet Step 2: polyethylene glycol (MIRALAX/GLYCOLAX) Step 3: bisacodyl (DULCOLAX) suppository Step 4: enema Hold for loose stools. Or senna-docusate (SENOKOT-S/PERICOLACE) 8.6-50 MG per tablet 2 tabletJump to med 2 tablet, Oral, 2 TIMES DAILY PRN, constipation, Starting on Sat11/18/24 at 1245, IF more than 1 constipation PRN medication is ordered, administer step-mon as indicated, moving to the next step ONLY if prior step ineffective. Step 1: senna-docusate (SENOKOT-S; PERICOLACE) OR bisacodyl (DULCOLAX) EC tablet Step 2: polyethylene glycol (MIRALAX/GLYCOLAX) Step 3: bisacodyl (DULCOLAX) suppository Step 4: enema Hold for loose stools. documented in this encounter Care Teams Molten Iron Pourer Relationship Specialty [place] [address] [place] [address] PCP - General Family Medicine 11/18/24 documented as of this encounter
--- OUTSIDE RECORDS SUMMARY | 2024-12-26 21:28 | XMS_ITS | Clinical Summary ---
Author Organization [facility] Address [address] [place] [id number] Care Team Providers Care Ball Ender Name Role Phone Estefani Bob DO Primary Care Provider [phone] Allergies Active Allergy Reactions Criticality Noted Date Comments Aspirin, Buffered Stomach Upset 02/27/2011 Medications omega-3 fatty acids-vitamin E (FISH OIL) 1,000 mg Cap Take 1 capsule by mouth 2 times daily. 0 02/28/20 11 Active niacin SR 500 mg CR capsule Take 1 capsule by mouth at bedtime. 0 02/28/20 11 Active multivitamin (MVI) tablet Take 1 tablet by mouth once daily. 0 02/28/20 11 Active acetaminophen (TYLENOL) 325 mg tablet Take by mouth every 4 hours if needed. Max acetaminophen dose: 4000mg in 24 hrs. 0 04/06/20 14 Active medication order composer Zinc 25 mg daily 0 05/08/20 16 Active polyethylene glycoL (MIRALAX) 17 gram/dose powderIndications: Constipation, unspecified constipation type Take 17 g by mouth once daily if needed for Constipation. 238 g 0 8:46 PM CDT 05/12/20 20 Active Blood Pressure Monitor (Blood Pressure Kit) KitIndications:Ess ential hypertension Diagnosis: hypertension Use as directed 1 Each 02/10/20 22 Active amLODIPine (NORVASC) 10 mg tabletIndications: Essential hypertension Take 1 Tablet (10 mg) by mouth once daily. 100 Tablet 3 06/19/20 24 Active hydroCHLOROthiazid e 25 mg tabletIndications: Essential hypertension Take 1 Tablet (25 mg) by mouth once daily. 100 Tablet 3 06/19/20 24 Active pravastatin (PRAVACHOL) 40 mg tabletIndications: Hyperlipidemia, unspecified hyperlipidemia type Take 1 Tablet (40 mg) by mouth at bedtime. 100 Tablet 3 06/19/20 24 Active tamsulosin (FLOMAX) 0.4 mg capsuleIndications :BPH with urinary obstruction TAKE 1 CAPSULE EVERY DAY AFTER A MEAL 100 Capsule 3 06/19/20 24 Active cyanocobalamin (Vitamin B-12) 1,000 mcg tabletIndications: Vitamin B12 deficiency Take 1 Tablet (1,000 mcg) by mouth once daily. 100 Tablet 3 06/21/20 24 Active Active Problems Problem Noted Date Diagnosed Date Vitamin B12 deficiency 06/21/2024 Stage 3b chronic kidney disease 01/26/2024 Stage 3a chronic kidney disease 01/06/2023 Elevated PSA 01/06/2023 Mild cognitive impairment 01/03/2023 Prediabetes 10/24/2021 Depression, recurrent 10/23/2021 BPH with urinary obstruction 08/23/2020 Overview (08/23/2020): Has had trips to ER for urinary retention CT scan showed enlarged prostate flomax started Chronic midline low back pain without sciatica 0 05/08/2016 Overview (05/08/2016): Uses Celebrex prn for low back pain Hyperlipidemia 02/27/2011 Overview (03/31/2012): Simvastatin- Essential hypertension 02/27/2011 Overview (08/23/2020): Amlodipine and HCTZ controls well Resolved Problems Problem Noted Date Diagnosed Date Resolved Date Protein-calorie malnutrition , unspecified severity 02/09/2022 01/03/2023 Immunizations Immunization Administration Dates Next Due COVID-19 vaccine ([employer] 30mcg/0.3mL) PF, MDV 06/15/2021,10/04/2020,09/16/2020 Influenza, High-dose Inactivated 05/05/2015 Influenza, High-dose Quadriv alent Inactivated 06/24/2020 Influenza, IIV3 (Age >=3 years) 06/17/20 06,07/19/2004,07/05/2003,2001 Influenza, Inactivated AIIV4 (Age 65+ Years) Preserv Free 07/04/2023,10/23/2021 Influenza, Inactivated IIV3 (Age 65+ Years) Preserv Free 06/19/2024,06/24/2020,05/19/2019,2017,06/12/2017 Pneumococcal Poly,23-Valent (Pneumovax) 04/30/2006 Pneumococcal conj 13-Valent (Prevnar 13) 05/05/2015 Td (Age >=7 Years) 02/22/2010 Td, Preservative Free (age > = 7 Years) 02/22/2010 Tdap 01/29/2023 Family History Medical History Relation Name Comments Good Health Father Good Health Mother Relation Name Status Comments Father Mother Social History Tobacco Use Types Packs/Day Years Used Date Smoking Tobacco: Never Smokeless Tobacco: Never Alcohol Use Standard Drinks/Week Comments No 0 (1 standard drink = 0.6 oz pur e alcohol) PHQ-2 Answer Date Recorded PHQ-2 TOTAL SCORE 1 01/23/2024 Social Connections Answer Date Recorded Do you often feel lonely or isolated from those around you? 0 01/23/2024 Financial Resource Strain Answer Date R ecorded Difficulty of Paying Living Expenses 3 01/23/2024 Difficulty of Paying Living Expenses Not on file 01/23/2024 Food Insecurity Answer Date Recorded Do you worry your food will run out before you are able to buy more? 1 01/23/2024 Transportation Needs Answer Date Record ed Does lack of transportation keep you from medica l appointments? 2 01/23/2024 Does lack of transportation keep you from work, meetings or getting things that you need? 1 01/23/2024 Housing Stability Answer Date Recorded What is your housing situation today? 3 01/23/2024 Utilities Answer Date Recorded Do you have trouble paying f or utilities (for example, heat, electricity, water, phone)? 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 Gender Identity Not on file Sexual Orientation Not on file Occupation Industry Job Start Date Job End Date Retired Not on file Not on file Not on file Obstetrics History Last Filed Vital Signs Vital Sign Reading Time Taken Comments Blood Pressure 122/68 06/19/2024 11:10 AM CDT Pulse 100 06/19/2024 11:10 AM CDT Temperature 37.1 C (98.7 F) 03/20/2022 4:38 PM CDT Respiratory Rate 18 05/12/2020 4:03 PM CDT Oxygen Saturation 99% 07/04/2023 10:37 AM COMPUTER SYSTEMS ANALYST Inhaled Oxygen Concentration - - Weight 50.3 kg (111 lb) 06/19/2024 11:10 AM CDT Height 155.2 cm (5' 1.12) 06/19/2024 11:10 AM C DT Body Mass Index 20.89 06/19/2024 11:10 AM CDT Plan of Treatment Upcoming Encounters Date Type Department Care Team (Late st Contact Info) Description 01/20/2025 10:25 AM CDT Office [place] [facility] [place] [address] [facility] [place] [address] [place] [address] [place] [address] Health Maintenance Due Date Last Done Comments Zoster (shingles) series for age 50+ (1 of 2) 1989 RSV vaccine for adults or (1 - 1-dose 75+ series) 2014 COVID-19 vaccine series ( season) 2024 07/13/2022, 06/15/2021, 10/04/2020, Additional history exists Depression screening for age 12+ 01/22/2025 01/23/2024, 01/03/2023, 10/25/2021, Additional history exists Medicare Wellness for age 65+ 01/23/2025, 01/03/2023, 10/23/2021, Additional history exists BMI (ht and wt on same day) for age 18+ 06/19/2025 06/19/2024, 01/23/2024, 01/03/2023, Additional history exists Tetanus booster 01/29/2033 01/29/2023, 01/26, 02/22/2010 Pneumococcal series for age 50+ Completed 5, 04/30/2006 Tdap Completed 01/29/2023 Influenza Vaccine Completed 06/19/2024, , 10/23/2021, Additional history exists Insurance [employer] CHOICE PPO MR Advance Directives Documents on File Type Date Recorded 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
--- OUTSIDE RECORDS SUMMARY | 2024-12-26 21:28 | XMS_ITS | Encounter Summary ---
Author Organization [facility] Address [address] [facility] [place] [address] Care Team Providers Care Laborer Brush Clearing Name Role Phone Estefani Bob Primary Care Provider [phone] Encounter Details Date Type Department Care Team (Latest Contact Info) Description 11/18/2024 Travel Social History Tobacco Use Types Packs/Day Years [...] Answer Date Recorded Do you have housing? 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
[2024-12-26 21:54] VITALS: BP 143/74; PULSE 94; RESP 16; TEMP 36.5; O2SAT 95; BMI 19.8
--- NOTE | 2024-12-26 22:48 | ED.GENADULT ---
HPI - General Adult General Chief complaint: Urogenital Problems, Male Stated complaint: bleeding from catheter Time Seen by Provider: 12/26/24 22:47 History of Present Illness HPI narrative: Patient reports blood in their catheter bag and pain from the catheter starting today. Patient says their catheter is leaking down their leg. They have an appt to have their catheter changed this week. Hx of being hospitalized in the past for UTIs. Denies trauma to area. 84-year-old man presenting to the emergency department with concern of hematuria and urinary tract infection. With daughter and son-in-law. Noted hematuria in the catheter beginning today. Daughter is concerned of potential urinary tract infection. Otherwise has seemed well. No fever. Daughter is mentioning likely need for suprapubic catheter given that this might be the 2nd infection in 6 months. Does have history of of indwelling Senior for LUTS. Related Data Home Medications ?Medication ?Instructions ?Recorded ?Confirmed acetaminophen 325 mg capsule 325 mg PO Q6H PRN 09/03/24 01/08/25 Previous Rx's ?Medication ?Instructions ?Recorded amlodipine 10 mg tablet 10 mg PO DAILY #30 tabs 10/12/24 pravastatin 40 mg tablet 40 mg PO DAILY #30 tabs 10/12/24 tamsulosin 0.4 mg capsule 0.4 mg PO DAILY #30 caps 10/12/24 levothyroxine 25 mcg tablet 25 mcg PO QDAY #30 tabs 12/16/24 (Synthroid) apixaban 2.5 mg tablet (Eliquis) 2.5 mg PO BID #60 tabs 01/08/25 cyanocobalamin (vitamin B-12) 1,000 mcg PO DAILY #90 tabs 01/08/25 1,000 mcg tablet metoprolol succinate 25 mg 25 mg PO QDAY #30 tabs 01/08/25 tablet,extended release 24 hr (Toprol XL) Allergies Allergy/AdvReac Type Severity Reaction Status Date / Time No Known Drug Allergies Allergy Verified 01/08/25 15:59 Review of Systems Status of ROS: Reports: 6 or more systems reviewed and unremarkable except as noted in History and below [facility] Medical History Hypothyroidism ?E03.9 - Hypothyroidism, unspecified (ICD-10) Urinary retention ?R33.9 - Retention of urine, unspecified (ICD-10) Atrial fibrillation ?I48.91 - Unspecified atrial fibrillation (ICD-10) Social History Highest level of school completed/degree received: Bachelor's degree Smoking Status: Never smoker Do you use any of these nicotine containing products: None How often do you have a drink containing alcohol: never AUDIT-C Alcohol total score: 0 Non-prescribed substance use: denies use Are you now , , , , never or living with a partner: Social isolation score (0-1 are the most socially isolated patients): 1 Exam Narrative: Exam Narrative: Senior in place. Clearly does show hematuria. Otherwise is draining well. Pleasant. Skin is warm and dry. No lower extremity edema. Abdomen is soft and nontender. Const: Vital Signs, click to edit/add: Vital Signs - 24 hr 12/26/24 21:54 Temperature 97.7 F Pulse Rate [Left P ulse Oximeter] 94 Respiratory Rate 16 Blood Pressure [Ri ght Upper Arm] 143/74 H Pulse Oximetry 95 Oxygen Delivery Me thod Room Air Documenting provider has reviewed patient's vital signs: yes Course Vital Signs Vital signs: Initial Vital Signs Temperature 97.7 F 12/26/24 21:54 Temperature Source Temporal Artery Scan 12/26/24 21:54 Pulse Rate 94 12/26/24 21:54 Respiratory Rate 16 12/26/24 21:54 Blood Pressure 143/74 H 12/26/24 21:54 Blood Pressure Mean 97 12/26/24 21:54 Blood Pressure Position Sitting 12/26/24 21:54 Pulse Oximetry 95 12/26/24 21:54 Oxygen Delivery Method Room Air 12/26/24 21:54 Vital Signs Temperature 97.7 F 12/26/24 21:54 Pulse Rate 94 12/26/24 21:54 Respiratory Rate 16 12/26/24 21:54 Blood Pressure 143/74 H 12/26/24 21:54 Pulse Oximetry 95 12/26/24 21:54 Oxygen Delivery Method Room Air 12/26/24 21:54 Temperature 97.7 F 12/26/24 21:54 Pulse Rate 94 12/26/24 21:54 Respiratory Rate 16 12/26/24 21:54 Blood Pressure 143/74 H 12/26/24 21:54 Pulse Oximetry 95 12/26/24 21:54 Oxygen Delivery Method Room Air 12/26/24 21:54 Medications Administered Medications: Discontinued Medications Generic Name Dose Route Start Last Admin Trade Name Brandi PRN Reason Stop Dose Admin Lidocaine HCl 6 ml 12/27/24 00:40 12/27/24 01:03 Lidocaine Hcl 2 % Jelly (Top) Sterile UR 6 ml ONCE PRN Administration Medical Decision Making MDM Narrative Medical decision making narrative: Is anticoagulated with apixaban. Likely this is contributing. I am not convinced of a urinary tract infection here but probably some manipulation of the Senior resulted in this bleeding. It does not appear that the bag was may be fixed properly? Apparently would be due in about a week for Senior change. We will try little flushing of the catheter and collect urine sample. Daughter would very much like the Senior changed. We can go ahead and do that. Replaced with coude. Aided with lidocaine jelly Urinalysis is not terribly convincing in the presence of an indwelling catheter but certainly possible as well due to presence of nitrite. Would offer antibiotic treatment per their concern or wait 2 days for urine culture results. I am not sure that what has been described here yet would warrant suprapubic permanent Senior placement. See patient discharge plan for further discussion Please follow-up with your primary care provider or Urology next week as anticipated. Return for fever, weakness, increasing and persistent pain, marked increase in bleeding . Prescribing cephalexin as an initial antibiotic from [facility]. We will however be culturing your urine and call you if any changes need to be made. Medical Records Medical records reviewed: Yes I reviewed the patient's medical records Lab Data Lab results reviewed: Yes I reviewed the patient's lab results Labs: Lab Results 12/26/24 Range/Units 23:42 Urine Color Evy A (Yellow) Urine Appearance Slightly Cloudy A (Clear) Urine pH 6.0 (5.0-8.5) Ur Specific [place] 1.025 (1.000-1.030) Urine Protein 2+ A (Negative) Urine Glucose (UA) Negative (Negative) Urine Ketones Trace A (Negative) Urine Blood 3+ A (Negative) Urine Nitrite Positive A (Negative) Urine Bilirubin Negative (Negative) Urine Urobilinogen 1.0 (0.2-1.0) Ur Leukocyte Esterase 2+ A (Negative) Urine RBC 25-50 A (0-2) Urine WBC 25-50 A (0-5) Ur Squamous Epith Cells None (None-Few) Urine Bacteria Many A (None) Discharge Plan Discharge Clinical Impression: Hematuria, Anticoagulated, Cystitis Patient Disposition: Home w/ Parent or Adult Condition: Stable Additional Instructions: Please follow-up with your primary care provider or Urology next week as anticipated. Return for fever, weakness, increasing and persistent pain, marked increase in bleeding . Prescribing cephalexin as an initial antibiotic from [facility]. We will however be culturing your urine and call you if any changes need to be made. Prescriptions: No Action Eliquis 2.5 mg tablet 2.5 mg PO BID Qty: 60 1RF metoprolol succinate [Toprol XL] 25 mg tablet extended release 24 hr 25 mg PO QDAY Qty: 30 1RF cyanocobalamin (vitamin B-12) 1,000 mcg tablet 1,000 mcg PO DAILY Qty: 90 3RF acetaminophen 325 mg capsule 325 mg PO Q6H PRN tamsulosin 0.4 mg capsule 0.4 mg PO DAILY Qty: 30 0RF pravastatin 40 mg tablet 40 mg PO DAILY Qty: 30 0RF amlodipine 10 mg tablet 10 mg PO DAILY Qty: 30 0RF levothyroxine [Synthroid] 25 mcg tablet 25 mcg PO QDAY Qty: 30 0RF Follow Up/Referrals: Chris Rizvi MD [Primary Care Provider] - Stand Alone Forms: [facility] Info Instructions
[2024-12-26 23:47] LABS: Appearance Urine Slightly Cloudy (Clear); Bilirubin Urine Negative (Negative); Blood Urine 3+ (Negative); Color Urine Amber (Yellow); Glucose Urine Negative (Negative); Ketones Urine Trace (Negative); Leukocyte Esterase Urine 2+ (Negative); Nitrite Urine Positive (Negative); Protein Urine 2+ (Negative); Specific Gravity Urine 1.025 (1.000-1.030)
[2024-12-26 23:58] LABS: Bacteria Urine Many; RBC Urine 25-50 (0-2); WBC Urine 25-50 (0-5)
--- OUTSIDE RECORDS SUMMARY | 2024-12-27 00:20 | XMS_ITS | Encounter Summary ---
Author Organization [facility] Address [address] [facility] [place] [address] Care Team Providers Care Security Intern Name Role Phone No Ref-Primary, Physician Primary Care Provider Estefani Bob DO Primary Care Provider [phone] Encounter Details Date Type Department Care Team (Late st Contact Info) Description 09/03/2024 External Order Results Formerly [facility] [address] [place] [address] Outside, Provider Social History Tobacco Use Types Packs/Day Years Used Date Smoking Tobacco: Never Alcohol Use Standard Drinks/Week Comments No 0 (1 standard drink = 0.6 oz pur e alcohol) Adolescent Education Answer Date Record ed Getting School Help Needed Not on file 06/09 Sex and Gender Information Value Date Recorded Sex Assigned at Not on file 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 Gender Identity Not on file Sexual Orientation Not on file documented as of this encounter Plan of Treatment Not on file documented as of this encounter Procedures Procedure Name Priority Date/Time Associated Diagnosis Comments LACTIC ACID WHOLE BLOOD Routine 09/03/2024 12:47 PM WEBSPHERE ARCHITECT ROUTINE UA WITH MICROSCOPIC Routine 09/03/2024 11:50 AM WEBSPHERE ARCHITECT EXTERNAL CULTURE RESULTS Routine 09/03/2024 10:32 AM WEBSPHERE ARCHITECT LACTIC ACID WHOLE BLOOD Routine 09/03/2024 10:32 AM WEBSPHERE ARCHITECT CBC WITH PLATELETS & DIFFERENTIAL Routine 09/03/2024 10:05 AM WEBSPHERE ARCHITECT EXTERNAL LAB RESULTS Routine 09/03/2024 10:05 AM WEBSPHERE ARCHITECT HEPATIC FUNCTION PANEL Routine 09/03/2024 10:05 AM WEBSPHERE ARCHITECT BASIC METABOLIC PANEL Routine 09/03/2024 10:05 AM WEBSPHERE ARCHITECT CREATININE Routine 09/03/2024 9:31 AM WEBSPHERE ARCHITECT documented in this encounter Results * (ABNORMAL) Lactic acid whole blood (09/03/2024 12:47 PM WEBSPHERE ARCHITECT) Pathologist [facility] Lactic Acid (External) 2.1(H) 0.5 - 1.9 mmol/L NON-INTERFACED (ONBASE SCANS) Comment:Lactate Sepsis Blood BLOOD SPECIMEN / Unknown 09/03/2024 12:47 PM WEBSPHERE ARCHITECT Narrative JAIMEE PFT - 09/15/2024 2:03 PM WEBSPHERE ARCHITECT Verified by Chad Osei on 09/15/2024. us Provider Outside LAB - BLOOD ORDERABLES Edited R esult - Final JAIMEE PFT NON-INTERFACED (ONBASE SCANS) * (ABNORMAL) UA with Microscopic (09/03/2024 11:50 AM WEBSPHERE ARCHITECT) Pathologist [facility] Color Urine (External) Yellow Yellow NON-INTERFAC ED (ONBASE SCANS) Appearance Urine (External) Clear Clear NON-INTERFAC ED (ONBASE SCANS) Glucose Urine (External) Negative Negative NON-INTERFAC ED (ONBASE SCANS) Bilirubin Urine (External) Negative Negative NON-INTERFAC ED (ONBASE SCANS) Ketones Urine (External) Negative Negative NON-INTERFAC ED (ONBASE SCANS) Specific [place] Urine (External) 1.015 1.000 - 1.030 NON-INTERFAC [...] (ONBASE SCANS) Urine 09/03/2024 11:5 0 AM WEBSPHERE ARCHITECT Narrative BREEZE PFT - 09/15/2024 2:18 PM WEBSPHERE ARCHITECT Verified by Carol Anthony on 09/15/2024. us Provider Outside LAB - URINE ORDERABLES Edited R esult - Final BREEZE PFT NON-INTERFACED (ONBASE SCANS) * External Culture Results (09/03/2024 10:32 AM WEBSPHERE ARCHITECT) Scan Culture Results (External) See Scanned Report NON-INTERFACE D (ONBASE SCANS) Comment:Blood Culture Final 09/03/2024 10:3 2 AM WEBSPHERE ARCHITECT Narrative BREEZE PFT - 09/15/2024 2:03 PM WEBSPHERE ARCHITECT Verified by Chad Osei on 09/15/2024. us Provider Outside LABORATORY Edited Result - Final BREEZE PFT NON-INTERFACED (ONBASE SCANS) * (ABNORMAL) Lactic acid whole blood (09/03/2024 10:32 AM WEBSPHERE ARCHITECT) Lactic Acid (External) 3.6(H) 0.5 - 1.9 mmol/L NON-INTERFACED (ONBASE SCANS) Blood BLOOD SPECIMEN / Unknown 09/03/2024 10:32 AM WEBSPHERE ARCHITECT Preston HERMOSILLO PFT - 09/15/2024 2:03 PM WEBSPHERE ARCHITECT Verified by Chad Osei on 09/15/2024. us Provider Outside LAB - BLOOD ORDERABLES Edited R esult - Final JAIMEE PFT NON-INTERFACED (ONBASE SCANS) * External Lab Results (09/03/2024 10:05 AM WEBSPHERE ARCHITECT) Troponin I (External) 0.01 0.01 - 0.04 NG/Ml NON-INTERFACED (ONBASE SCANS) 09/03/2024 10:0 5 AM WEBSPHERE ARCHITECT Narrative HAFSAE PFT - 09/15/2024 2:18 PM WEBSPHERE ARCHITECT Verified by Carol Anthony on 09/15/2024. us Provider Outside LABORATORY Edited Result - Final JAIMEE PFT NON-INTERFACED (ONBASE SCANS) * (ABNORMAL) CBC with Platelets & Differential (09/03/2024 10:05 AM WEBSPHERE ARCHITECT) WBC Count (External) 14.64(H) 4.50 - 11.00 [...] BLOOD SPECIMEN / Unknown 09/03/2024 10:05 AM WEBSPHERE ARCHITECT Narrative JAIMEE PFT - 09/15/2024 2:18 PM WEBSPHERE ARCHITECT Verified by Carol Anthony on 09/15/2024. us Provider Outside LAB - BLOOD ORDERABLES Klaus R esult - Final JAIMEE PFT NON-INTERFACED (ONBASE SCANS) * (ABNORMAL) Basic metabolic panel (09/03/2024 10:05 AM WEBSPHERE ARCHITECT) Sodium (External) 136 135 - 149 mmol/L [...] BLOOD SPECIMEN / Unknown 09/03/2024 10:05 AM WEBSPHERE ARCHITECT Narrative JAIMEE PFT - 09/15/2024 2:18 PM WEBSPHERE ARCHITECT Verified by Carol Anthony on 09/15/2024. us Provider Outside LAB - BLOOD ORDERABLES Edited R esult - Final JAIMEE PF NON-INTERFACED (ONBASE SCANS) * (ABNORMAL) Hepatic function panel (09/03/2024 10:05 AM WEBSPHERE ARCHITECT) Protein Total (External) 7.9 6.0 - 8.3 [...] BLOOD SPECIMEN / Unknown 09/03/2024 10:05 AM WEBSPHERE ARCHITECT Narrative BREEZE PFT - 09/15/2024 2:18 PM WEBSPHERE ARCHITECT Verified by Carol Anthony on 09/15/2024. Provider Outside LAB - BLOOD ORDERABLES Edited R [employer] NILSONEZFariha PFT NON-INTERFACED (ONBASE SCANS) * (ABNORMAL) Creatinine (09/03/2024 9:31 AM WEBSPHERE ARCHITECT) Creatinine (External) 1.5(H) 0.6 - 1.3 mg/dL NON-INTERFACED (ONBASE SCANS) Blood BLOOD SPECIMEN / Unknown 09/03/2024 9:31 AM WEBSPHERE ARCHITECT Narrative BREEZE PFT - 09/15/2024 2:03 PM WEBSPHERE ARCHITECT Verified by Chad Osei on 09/15/2024. Provider Outside LAB - BLOOD ORDERABLES Edited R [employer] JAIMEE PFT NON-INTERFACED (ONBASE SCANS) documented in this encounter Visit Diagnoses Not on filedocumented in this encounter Care Teams Security Intern Relationship Specialty Start Date End Date No Ref-Primary, Physician PCP - General 09/05/24 11/17/24 [place] [address] [place] [address] PCP - General Family Medicine 11/18/24 documented as of this encounter
--- OUTSIDE RECORDS SUMMARY | 2024-12-27 00:20 | XMS_ITS ---
Author Organization [facility] Address [address] [place] [address] Care Team Providers Care Insurance Adviser Name Role Phone Estefani Bob DO Primary Care Provider [phone] Transitional Care Management Status:Closed (Closed) Start date:11/21/2024 Enrollment date:11/23/2024 End date:12/05/2024 Close reason:Goals met Continued Care and Services Coordination
--- OUTSIDE RECORDS SUMMARY | 2024-12-27 00:21 | XMS_ITS | Encounter Summary ---
Author Organization [facility] [place] Address [address] [facility] 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
--- OUTSIDE RECORDS SUMMARY | 2024-12-27 00:21 | XMS_ITS | Clinical Summary ---
Author Organization [facility] Address [address] [place] [address] Care Team Providers Care Director Of Radio Services Name Role Phone Estefani Bob DO Primary Care Provider [phone] Allergies Active Allergy Reactions Criticality Noted Date [...] Immunization Administration Dates Next Due COVID-19 vaccine ([employer] 30mcg/0.3mL) PF, MDV 06/15/2021,10/04/2020,09/16/2020 Influenza, High-dose Inactivated [...] on file Legal Sex Male 8:09 AM SLEEP LAB TECHNICIAN Gender Identity Not on file Sexual [...] CDT Oxygen Saturation 99% 07/04/2023 10:37 AM SLEEP LAB TECHNICIAN Inhaled Oxygen Concentration - - Weight 50.3 kg (111 lb) 06/19/2024 11:10 AM CDT Height 155.2 cm (5' 1.12) 06/19/2024 11:10 AM C DT Body Mass Index 20.89 06/19/2024 11:10 AM CDT Plan of Treatment Upcoming Encounters Date Type Department Care Team (Late st Contact Info) Description 01/20/2025 10:25 AM CDT [place] [facility] [place] [address] [facility] [place] [address] [place] [address] [place] [address] Health Maintenance Due Date Last [...] Documents on File Type Date Recorded 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
--- OUTSIDE RECORDS SUMMARY | 2024-12-27 00:21 | XMS_ITS | Encounter Summary ---
Author Organization [place] Address [facility] 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 Name Role Phone Estefani Bob Primary Care Provider Reason for Visit * Reason Comments Catheter Problem Leaking cath * Auth/Cert Specialty Diagnoses / Procedures Referred By Yumiko ledesma Referred To Contact EMERGENCY MEDICINE Diagnoses Acute UTI Acute kidney injury [facility] Emergency Dept [address] [place] [address] Phone: tel: fax: Referral ID Status Reason Start Date Expiration Date Visits Re quested Visits Authorized [id number] 1 1 Encounter Details Date Type Department Care Team (Late st Contact Info) Description 11/18/2024 9:52 AM CDT - 11/20/2024 4:25 PM CDT Hospital Encounter [facility] [address] [phone] Arian Rodriguez MD [facility] [place] [address] Joseph Cortes MD [address] [id number] Carlton Sultana MD [address] [place] [address] Atrial fibrillation with RVR (H) (Primary Dx); [...] in an abandoned building, in an overnight [place], or couch-surfing.) No 11/18/2024 Are you worried [...] on file Legal Sex Male 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 Carlton Sultana MD [place] [address] [facility] [address] [place] [address] Physical Exam Vital Signs: Temp: 98.1 ??F (36.7 ??C) Temp src: Oral BP: 110/47 Pulse: 63 Resp: 16 SpO2: 96 % O2 Device: None (Room air) Weight: 103 lbs 13.39 oz General: Awake, alert, NAD, appropriate interaction, laying flat in bed, declined bone plant supervisor HEENT: Atraumatic, normocephalic, EOMI, no scleral icterus [...] Dr wahl) on 01/01 at 920am [address] [facility] [address] [facility] # [phone] Reason for your hospital stay You were [...] goal(s). See goals on Care Plan in [facility] electronic health record for goal details. Goals [...] Bin checked and emptied on discharge Yes SW/healthcare or medical/it professional aware of discharge: Yes * Amy Eagle RN - 11/20/2024 2:13 PM CDT A/Ox4. On RA. Kenyan speaking, but understands and speaks qatari. Chronic lozoya in and patent.Mg and Phos replaced. Discharge place. Pt refused discharge med (Eliquis) d/t cost. Hospitalist notified. Pt declined after MD explains risk /benefits. PIV removed. Awaiting for his son. * Ilsa Hawkins OTR - 11/19/2024 4:31 PM CDT 11/19/24 1400 Appointment Info Signing Clinician's Name / Credentials (OT) Ilsa Hawkins, OTD, OTR/L Seafood Technology Specialist Seafood Technology Specialist Present no Language Pt politely declines Kenyan bone plant supervisor, understands most Tristanian Living Environment People in Home child(que), adult;other [...] of Surgery 11/18/24 Referring Physician Valery Garcia, RESOURCE MANAGEMENT PLANNER Patient/Family Therapy Goal Statement (OT) To get [...] Evaluation Time OT Eval, Low Complexity Minutes (76079) 10 OT Goals Therapy Frequency (OT) Daily [...] vs FWW) Therapeutic Activities Therapeutic Activity Minutes (91534) 18 Symptoms noted during/after treatment none Treatment [...] for sponge bathing, assist with IADLs and [facility] OT for home safety evaluation and functional cognition, once medically ready. OT will continue to follow. OT Brief overview of current status Goals of therapy will be to address safe mobility and make recsfor d/c to next level of care. Pt and RN will continue to follow all falls risk precautions as documented by staff design engineer while hospitalized (CGA-SBA pushing IV pole) OT [...] wt ASSESSED NUTRITION NEEDS Estimated Energy Needs: 9168-2144 kcals (30-35 Kcal/Kg) Justification: underweight Estimated Protein Needs: 57-71 grams protein (1.2-1.5 g pro/Kg) Justification: repletion Estimated Fluid Needs: 6035-2221 mL (1 mL/Kcal) Justification: maintenance SYSTEM FINDINGS [...] Sultana MD - 11/19/2024 11:00 AM CDT [facility] Medicine Progress Note - Hospitalist Service Date [...] this evening, encourage PO intake -Continue holding AIRLINE PILOT HCTZ and lisinopril -Repeat BMP in AM [...] Anticipated Tomorrow Carlton Sultana MD Hospitalist Service [facility] Securely message with [employer] (more info) Text page via [facility] Paging/Directory Interval History States he feels well [...] appropriate interaction, laying flat in bed, 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 This was deleted from his AIRLINE PILOT medication list. It is unclear why or when this is discontinued. Will resume BID while inpatient. Valery Garcia NP [facility] Securely message with the [employer] Web Console (learn more here) Text page via [facility] Paging/Directory No charge note. * Amber Mathew PA-C - 11/18/2024 3:43 PM CDT Urology Brief Note Patient is already established with Dr. Alex Wahl. Last seen 10/06/24 in the [facility]. PerDr. 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 I recommend we obtain urodynamic studies to assess if this is potentially reversible with an outletprocedure. 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 He will complete urodynamic studies to asses if there is a role for surgical therapy and we will discuss after we have these results. His catheter will be exchanged today. As he already had his catheter changed in the ED and is currently being treated for an UTI, he is welcome to call Dr. Wahl's office back at [phone] to set up a follow up appointment and/or for catheter cares. There is no need for a formal urology consult as this can be managed outpatient. Amber Mathew PA-C [facility] Pager: [phone] Office: [phone] * Marychuy Little RN - 11/18/2024 2:49 PM CDT RECEIVING UNIT ED HANDOFF REVIEW ED Nurse Handoff Report was reviewed by: Marychuy Little RN on November 18, 2024 at 2:49 PM documented in this encounter H&P Notes * Valery Garcia NP - 11/18/2024 11:26 AM CDT [facility] History and Physical - Hospitalist Service Date [...] IVF overnight and 11/19 morning -Will hold AIRLINE PILOT HCTZ and lisinopril -Repeat BMP 11/19 History [...] driven electrolyte replacement protocols in place -Continue AIRLINE PILOT Eliquis twice daily Frequent falls Patient and son report more frequent falls in the last few months. Sound mechanical in nature. Denies dizziness, chest pain or shortness of breath. Utilizes a cane at baseline. No obvious injuries admission on exam. -Monitor for clinical improvement with UTI and LARS treatment -PT evaluation -Monitor on telemetry overnight -Fall precautions Hypertension AIRLINE PILOT regimen: 25 mg hydrochlorothiazide daily, 5 mg lisinopril daily and 10 mg amlodipine daily -Continue AIRLINE PILOT amlodipine with hold parameters -Hold AIRLINE PILOT HCTZ and lisinopril given LARS -P.o./IV hydralazine [...] Cortes . Valery Garcia NP Hospitalist Service [facility] Securely message with [employer] (more info) Text page via [facility] Paging/Directory Chief Complaint Catheter leaking History [...] the patient with IV antibiotic -Continue with AIRLINE PILOT home medication -Follow culture data -Will need case management consult Joseph Cortes MD Date of Service (when I saw the patient): I did not personally see this patient today. documented in this encounter Consult Notes * Renea Thakkar - 11/20/2024 1:53 PM CDTAssociated Order(s): PHARMACY LIAISON FOR MEDICATION COVERAGE CONSULT Summary: DOAC coverage check Patient has Medicare Advantage through [employer]. Xarelto/Eliquis --Upon receipt of RX, Discharge Pharmacy can provide 1 mo free using one-time appian developer voucher. --Patient is will pay 100% of [...] phone number for their plan. Renea Thakkar Photograph Developer/Liaison, Discharge Pharmacy [phone] (voice or text) [email or web address] Pharmacy test claims are estimates and may [...] follow for,d/c plans Sancho Thacker RN CC [phone] * Arin Patel [facility] - 11/18/2024 11:35 AM CDTAssociated Order(s): [...] Communication Assessment Patient's communication style: spoken language (Tristanian or Bilingual) Cognitive Cognitive/Neuro/Behavioral: Living Environment: People [...] Insecurity: No Food Insecurity (01/23/2024) [facility] Food Insecurity Do you worry your food will run out before you are able to buy more?: 1 Depression: Not at risk (01/23/2024) [facility] PHQ-2 PHQ-2 TOTAL SCORE: 1 Housing Stability: High Risk (01/23/2024) Received from [facility] Housing Stability What is your housing situation today?: 3 Tobacco Use: Low Risk (06/19/2024) Received from [facility] Patient History Smoking Tobacco Use: Never Smokeless Tobacco Use: Never Passive Exposure: Not on file Financial Resource Strain: Low Risk (01/23/2024) Received from [facility] Financial Resource Strain Difficulty of Paying Living Expenses: 3 Difficulty of Paying Living Expenses: Not on file Alcohol Use: Not on file Transportation Needs: Unmet Transportation Needs (01/23/2024) Received from [facility] Transportation Needs Does lack of transportation keep you from medical appointments?: 2 Does lack of transportation keep you from work, meetings or getting things that you need?: 1 Physical Activity: Not on file Interpersonal Safety: Not on file Stress: Not on file Social Connections: Socially Integrated (01/23/2024) Received from [facility] Social Connections Do you often feel lonely or isolated from those around you?: 0 Health Literacy: Not on file Functional Status: Prior to admission patient needed assistance: Dependent ADLs:: Ambulation-cane Dependent IADLs:: Independent Mental Health Status: Mental Health Status: No Current Concerns Chemical Dependency Status: Chemical Dependency Status: No Current Concerns Values/Beliefs: Spiritual, Cultural Beliefs, Taoist Practices, Values that affect care: no Discussed [...] Steps: SW available as needed. MARCELA Mckeon, [facility] [phone] Desk phone [phone] Cell/text (Preferred) [facility] documented in this encounter ED Notes * Joselyn Murray RN - 11/18/2024 11:23 AM CDT [facility] ED Nurse Handoff Report ED Chief [...] Urine Negative Ketones Urine Trace (*) Specific [place] Urine 1.016 Blood Urine Large (*) pH [...] Level - Current: Independent Patient's Preferred language: Kenyan Seafood Technology Specialist Needed?: No Isolation: None Infection: Not Applicable [...] interventions performed were ED NURSE PHONE NUMBER: *[phone] * Arian Rodriguez MD - 11/18/2024 9:56 [...] Urine Negative Ketones Urine Trace (*) Specific [place] Urine 1.016 Blood Urine Large (*) pH [...] to prior, dated 09/06/24. Rate 86 bpm. IL interval 152 ms. QRS duration 96 ms. [...] Homelessness/Housing Insecurity Medical Decision Making / Diagnosis [facility] Diagnoses: None MIPS Lozoya catheter was [...] also is somewhat complicated. 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 Kenyan speaking, speaks/understands some Englsh; refused bone plant supervisor BEHAVIOR & AGGRESSION TOOL COLOR: Green ABNL [...] is uploaded in the results section on [employer]. Orders Received: Recheck electrolytes in AM Comments: * Plan of Care - Marychuy Little RN - 11/18/2024 7:12 PM CDT Orientation: alert and oriented x4- declines bone plant supervisor Vitals/Tele: vitals stable on room air- slightly [...] Interaction: amcom paging Purpose of Notification: 66 Rmoero: FYI-Possible [place] Pointes seen on telemetry- Pt asymptomatic, VSSRA, getting 12-lead now. Anything additional? Thanks Marychuy TOMLIN [phone] Orders Received: Comments: * Provider Notification - Marychuy Little RN - 11/18/2024 5:42 PM CDT MD Notification Notified Person: MD Notified Person Name: Valery Garcia NP Notification Date/Time: 11/18 @ 174 Notification Interaction: vocera Purpose of Notification: per your note- AIRLINE PILOT anticoagulation should be continued twice daily- not ordered at admission. Would you like to order? Thanks Marychuy TOMLIN [phone] Orders Received: resumed Comments: * Pharmacy-Admission Medication [...] no longer taking it. Changes made to AIRLINE PILOT medication list: Added: None Deleted: amiodarone, Eliquis, vitamin D, flaxseed oil, garlic, tumeric, ginseng, green tea extract,lisinopril, multivitamin, simvastatin, zinc Changed: None Allergies reviewed with patient and updates made in EHR: yes Medication History Completed By: Yamileth Beck RPH 11/18/2024 12:29 PM AIRLINE PILOT Med List Medication Sig Last Dose/Taking amLODIPine [...] CBC with platelets (11/20/2024 9:42 AM CDT) [facility] WBC Count 7.3 4.0 - 11.0 10e3/uL [...] 150 - 450 10e3/uL 11/20/2024 9:[address] [facility] Blood BLOOD SPECIMEN / Unknown Venipuncture / Unknown 11/20/2024 9:42 AM CDT 11/20/2024 9:50 AM CDT us Carlton Sultana MD LAB - BLOOD ORDERABLES Final Result LABORATORY [facility] [address] floor, [address] [place] [address], [facility] [phone] * (ABNORMAL) Basic metabolic panel (11/20/2024 9:42 AM CDT) Sodium 136 135 - 145 mmol/L [facility]24 [facility] Potassium 4.3 3.4 - 5.3 mmol/L 11/20/2024 10:10 AM CDT LABORATORY Chloride 101 98 - 107 mmol/L 11/20/2024 10:[facility] Carbon Dioxide (CO2) 26 22 [...] LAB - BLOOD ORDERABLES Final Result LABORATORY [facility] [address] floor, [address] [address], [facility] [phone] * (ABNORMAL) Phosphorus (11/20/2024 9:42 AM CDT) Phosphorus 2.4(L) 2.5 - 4.5 mg/dL 11/20/2024 10:10 AM CDT LABORATORY Blood BLOOD SPECIMEN / Unknown Venipuncture / Unknown 11/20/2024 9:42 AM CDT 11/20/2024 9:50 AM CDT Carlton Sultana MD LAB - BLOOD ORDERABLES Final Result LABORATORY [facility] [address], [address] [place] [address], [facility] [phone] * Magnesium (11/20/2024 9:42 AM CDT) Magnesium 2.0 1.7 - 2.3 mg/dL 11/20/2024 10:10 AM CDT LABORATORY Blood BLOOD SPECIMEN / Unknown Venipuncture / Unknown 11/20/2024 9:42 AM CDT 11/20/2024 9:50 AM CDT Carlton Sultana MD LAB - BLOOD ORDERABLES Final Result LABORATORY [facility] [address], [address] [place] [address], [facility] [phone] * Urine Culture (11/19/2024 9:27 AM CDT) Culture 10,000-50,000 CFU/mL Mixture of Urogenital Ernestina 11/20/2024 7:49 AM CDT [facility] Urine URINE SPECIMEN OBTAINED VIA INDWELLING URINARY CATHETER / Unknown Non-blood Collection / Unknown 11/19/2024 9:27 AM CDT 11/19/2024 9:45 AM CDT Carlton Sultana MD LAB - MICRO GENERAL ORDERABLE S Final Result [facility] Inf. Diseases Diag. Lab [address] [facility] [place] [address], [facility] * (ABNORMAL) UA Macroscopic with reflex to [...] mg/dL 11/19/2024 9:45 AM CDT LABORATORY Specific [place] Urine 1.018 1.003 - 1.035 11/19/2024 9:45 [...] LAB - URINE ORDERABLES Final Result LABORATORY [facility] [address], [address] [place] [address], [facility] [phone] * EKG 12-lead, tracing only (11/19/2024 9:22 AM CDT) Systolic Blood Pressure mmHg RADIOLOGY RESULTS Diastolic Blood Pressure mmHg RADIOLOGY RESULTS Ventricular Rate 86 BPM RAD IOLOGY RESULTS Atrial Rate 86 BPM RADIOLOG Y RESULTS IL Interval 154 ms RADIOLOG Y RESULTS QRS Duration 92 ms RADIOLO GY RESULTS QT 384 ms RADIOLOGY RESULTS QTc 459 ms RADIOLOGY RESULTS P [place] 39 degrees RADIOLOGY RESULTS R AXIS -54 degrees RADIOLOGY RESULTS T [place] 41 degrees RADIOLOGY RESULTS Interpretation ECG Sinus [...] CDT 11/19/2024 9:27 AM CDT Valery Garcia RESOURCE MANAGEMENT PLANNER LAB - BLOOD ORDERABLES María l Result Performing Organization Address City/[facility]/ZIP Co de Phone Number [facility] [address], [address] [place] [address], [facility] [phone] * Phosphorus (11/19/2024 9:20 AM CDT) Phosphorus 2.8 2.5 - 4.5 mg/dL 11/19/2024 10:45 AM CDT LABORATORY Blood STRUCTURE OF LEFT UPPER LIMB / Unknown Venipuncture / Unknown 11/19/2024 9:20 AM CDT 11/19/2024 9:27 AM CDT Valery Garcia RESOURCE MANAGEMENT PLANNER LAB - BLOOD ORDERABLES Amría l Result [facility] [address], [address] [place] [address], [facility] [phone] * (ABNORMAL) CBC with platelets (11/19/2024 9:20 AM CDT) [facility] WBC Count 7.5 4.0 - 11.0 10e3/uL [...] - BLOOD ORDERABLES María l Result LABORATORY [facility] [address], [address] [place] [address], [facility] [phone] * (ABNORMAL) Basic metabolic panel (11/19/2024 9:20 AM CDT) [facility] Sodium 140 135 - 145 mmol/L 11/19/2024 [...] CDT 11/19/2024 9:27 AM CDT Valery Garcia RESOURCE MANAGEMENT PLANNER LAB - BLOOD ORDERABLES María l Result LABORATORY [facility] [address], [address] [place] [address], [facility] [phone] * Magnesium (11/18/2024 8:28 PM CDT) Magnesium 1.9 1.7 - 2.3 mg/dL 11/18/2024 8:58 PM CDT LABORATORY Blood STRUCTURE OF LEFT UPPER LIMB / Unknown Venipuncture / Unknown 11/18/2024 8:28 PM CDT 11/18/2024 8:33 PM CDT us Shasha Vargas MD LAB - BLOOD ORDERABLES Fi nal Result LABORATORY [facility] [address], [address] [place] [address], [facility] [phone] * Potassium (11/18/2024 8:28 PM CDT) Potassium 3.8 3.4 - 5.3 mmol/L 11/18/2024 8:58 PM CDT LABORATORY Blood STRUCTURE OF LEFT UPPER LIMB / Unknown Venipuncture / Unknown 11/18/2024 8:28 PM CDT 11/18/2024 8:33 PM CDT us Shasha Vargas MD LAB - BLOOD ORDERABLES Fi nal Result Performing Organization Address City/[facility]/ZIP Co de Phone Number LABORATORY [facility] [address], [address] [place] [address], [facility] [phone] * EKG 12-lead, tracing only (11/18/2024 6:55 PM CDT) Systolic Blood Pressure mmHg RADIOLOGY RESULTS Diastolic Blood Pressure mmHg RADIOLOGY RESULTS Ventricular Rate 80 BPM RAD IOLOGY RESULTS Atrial Rate 80 BPM RADIOLOG Y RESULTS IL Interval 156 ms RADIOLOG Y RESULTS QRS Duration 94 ms RADIOLO GY RESULTS QT 394 ms RADIOLOGY RESULTS QTc 454 ms RADIOLOGY RESULTS P [place] 43 degrees RADIOLOGY RESULTS R AXIS -43 degrees RADIOLOGY RESULTS T [place] 57 degrees RADIOLOGY RESULTS Interpretation ECG Sinus rhythm Left axis deviation Possible Lateral infarct (cited on or before 18-Nov-2024) Abnormal ECG When compared with ECG of 18-Nov-2024 18:54, (unconfirmed) Sinus rhythm has replaced Atrial fibrillation Confirmed by MD BINU, CINDY (1984) on 11/19/2024 8:24:54 AM RADIOLOGY RESULTS 11/18/2024 6:55 PM CDT 11/19/2024 8:24 AM CDT Vlaery Garcia RESOURCE MANAGEMENT PLANNER ECG ORDERABLES Edited Critical [facility] hospital - Final Performing Organization Address [facility] Co de Phone Number RADIOLOGY RESULTS * EKG 12-lead, tracing only (11/18/2024 6:54 PM CDT) Systolic Blood Pressure mmHg RADIOLOGY RESULTS Diastolic Blood Pressure mmHg RADIOLOGY RESULTS Ventricular Rate 108 BPM RAD IOLOGY RESULTS Atrial Rate 141 BPM RADIOLOG Y RESULTS IL Interval ms RADIOLOG Y RESULTS QRS Duration 94 ms RADIOLO GY RESULTS QT 374 ms RADIOLOGY RESULTS QTc 501 ms RADIOLOGY RESULTS P [place] degrees RADIOLOGY RESULTS R AXIS -51 degrees RADIOLOGY RESULTS T [place] 73 degrees RADIOLOGY RESULTS Interpretation ECG Atrial [...] CDT 11/19/2024 8:25 AM CDT Valery Garcia RESOURCE MANAGEMENT PLANNER ECG ORDERABLES Edited [facility] Performing Organization Address [facility] de Phone Number RADIOLOGY RESULTS * Urine Culture (11/18/2024 10:21 AM CDT) Pathologist [facility] Culture >100,000 CFU/mL Mixture of Urogenital Ernestina [...] ORDERAB LES Final Result [facility] Inf. Diseases Diag. Lab [address] [facility] [place] [address] * (ABNORMAL) UA with Microscopic reflex to Culture (11/18/2024 10:21 AM CDT) Color Urine Light Brown(A) Colorless, Straw, Light Yellow, Yellow 11/18/2024 10:[address] [facility] Appearance Urine Cloudy(A) Clear 11/19/19 10:[address] [facility] Glucose Urine Negative Negative mg/dL 11/18/2024 10:[address] [facility] Bilirubin Urine Negative Negative 10:[address] [facility] Ketones Urine Trace(A) Negative mg/dL 11/18/2024 10:[address] [facility] Specific [place] Urine 1.016 1.003 - 1.035 11/18/2024 10:[address] [facility] Blood Urine Large(A) Negative 11/18/2024 10:[address] [facility] pH Urine 6.5 5.0 - 7.0 11/18/2024 10:[address] [facility] Protein Albumin Urine 70(A) Negative mg/dL 11/18/2024 10:[address] [facility] Urobilinogen Urine Normal Normal mg/dL 11/18/2024 10:[address] [facility] Nitrite Urine Positive(A) Negative 11/18/2024 10:[address] [facility] Leukocyte Esterase Urine Large(A) Negative 11/18/2024 10:[address] [facility] Bacteria Urine Moderate(A) None Seen /HPF 11/18/2024 10:[address] [facility] WBC Clumps Urine Present(A) None Seen /HPF 11/18/2024 10:[address] [facility] Mucus Urine Present(A) None Seen /LPF 11/18/2024 10:[address] [facility] Amorphous Crystals Urine Few(A) None Seen /HPF 11/18/2024 10:[address] [facility] RBC Urine >182(H) <=2 /HPF 11/18/2024 10:[address] [facility] WBC Urine >182(H) <=5 /HPF 11/18/2024 10:40 AM CDT LABORATORY Urine URINE SPECIMEN OBTAINED VIA INDWELLING URINARY CATHETER / Unknown Non-blood Collection / Unknown 11/18/2024 10:21 AM CDT 11/18/2024 10:29 AM CDT Narrative LABORATORY - 11/18/2024 10:40 AM CDT Urine Culture ordered based on laboratory criteria Arian Rodriguez MD LAB - URINE ORDERABLES María l Result LABORATORY [facility] [address], [address] [place] [address], [place] [phone] * Phosphorus (11/18/2024 10:19 AM CDT) Phosphorus 3.1 2.5 - 4.5 mg/dL 11/18/2024 12:58 PM CDT LABORATORY Blood BLOOD SPECIMEN / Unknown Venipuncture / Unknown 11/18/2024 10:19 AM CDT 11/18/2024 10:31 AM CDT Valery Garcia NP LAB - BLOOD ORDERABLES María l Result Performing Organization Address City/[facility]/ZIP Co de Phone Number LABORATORY [facility] [address] 1[address] floor, [address] [place] [address], [place] [phone] * Magnesium (11/18/2024 10:19 AM CDT) Magnesium 2.2 1.7 - 2.3 mg/dL 11/18/2024 12:58 PM CDT LABORATORY Blood BLOOD SPECIMEN / Unknown Venipuncture / Unknown 11/18/2024 10:19 AM CDT 11/18/2024 10:31 AM CDT Valery Garcia NP LAB - BLOOD ORDERABLES María l Result LABORATORY [facility] [address] floor, [address] [place] [address], [facility] [phone] * (ABNORMAL) CBC with platelets and differential [...] 10:19 AM CDT 11/18/2024 10:31 AM CDT [facility] - BLOOD ORDERABLES María l Result [facility] [address] 1[address] floor, [address] [place] [address], [facility] [phone] * Lactic Acid Whole Blood with 1X Repeat in 2 HR when >2 (11/18/2024 10:19 AM CDT) Lactic Acid, Initial 1.4 0.7 - 2.0 mmol/L 11/18/2024 10:31 AM CDT LABORATORY Blood BLOOD SPECIMEN / Unknown Venipuncture / Unknown 11/18/2024 10:19 AM CDT 11/18/2024 10:30 AM CDT Arian Rodriguez MD LAB - BLOOD ORDERABLES María l Result [facility] [address] 1[address] floor, [address] [place] [address], [facility] [phone] * (ABNORMAL) Comprehensive metabolic panel (11/18/2024 10:19 AM [facility] [place]NOTE 2[place] [facility] Sodium 136 135 - 145 mmol/L 11/18/2024 10:[address] [facility] Potassium 3.8 3.4 - 5.3 mmol/L 11/18/2024 10:[address] [facility] Carbon Dioxide (CO2) 25 22 - 29 mmol/L 11/18/2024 10:[address] [facility] Anion Gap 12 7 - 15 mmol/L 11/18/2024 10:[address] [facility] Urea Nitrogen 33.4(H) 8.0 - 23.0 mg/dL 11/18/2024 10:[address] [facility] Creatinine 1.52(H) 0.67 - 1.17 mg/dL 11/18/2024 10:[address] [facility] GFR Estimate 45(L) >60 mL/min/1.7 3m2 11/18/2024 10:[address] [facility] Comment:eGFR calculated usky 2020 CKD-EPI equation. Calcium 9.1 8.8 - 10.4 mg/dL 11/18/2024 10:[address] [facility] Chloride 99 98 - 107 mmol/L 11/18/2024 10:[address] [facility] Glucose 124(H) 70 - 99 mg/dL 11/18/2024 10:[address] [facility] Alkaline Phosphatase 68 40 - 150 U/L 11/18/2024 10:[address] [facility] AST 29 0 - 45 U/L 11/18/2024 10:[address] [facility] ALT 15 0 - 70 U/L 11/18/2024 10:[address] [facility] Protein Total 7.1 6.4 - 8.3 g/dL 11/18/2024 10:[address] [facility] Albumin 4.3 3.5 - 5.2 g/dL 11/18/2024 10:[address] [facility] Bilirubin Total 0.5 <=1.2 mg/dL 11/18/2024 10:[address] [facility] Blood BLOOD SPECIMEN / Unknown Venipuncture / Unknown 11/18/2024 10:19 AM CDT 11/18/2024 10:31 AM CDT Arian Rodriguez MD LAB - BLOOD ORDERABLES María matthew Result LABORATORY [facility] [address] floor, [address] [place] [address], [facility] [phone] * EKG 12-lead, tracing only (11/18/2024 10:18 AM CDT) Systolic Blood Pressure mmHg RADIOLOGY RESULTS Diastolic Blood Pressure mmHg RADIOLOGY RESULTS Ventricular Rate 86 BPM RAD IOLOGY RESULTS Atrial Rate 86 BPM RADIOLOG Y RESULTS IL Interval 152 ms RADIOLOG Y RESULTS QRS Duration 96 ms RADIOLO GY RESULTS QT 398 ms RADIOLOGY RESULTS QTc 476 ms RADIOLOGY RESULTS P [place] 62 degrees RADIOLOGY RESULTS R AXIS -39 degrees RADIOLOGY RESULTS T [place] -4 degrees RADIOLOGY RESULTS Interpretation ECG Sinus rhythm Left axis deviation Anterior infarct , age undetermined Abnormal ECG No previous ECGs available Confirmed by GENERATED REPORT, COMPUTER ([id number]), editor trade journal Shira Meier ([id number]) on 11/18/2024 11:03:20 AM RADIOLOGY RESULTS 11/18/2024 [...] stools. documented in this encounter Care Teams Oil Pipeline Dispatcher Relationship Specialty [place] [address] [place] [address] PCP - General Family Medicine 11/18/24 documented as of this encounter
--- OUTSIDE RECORDS SUMMARY | 2024-12-27 00:21 | XMS_ITS | Clinical Summary ---
Author Organization [place] Address [address] [facility] 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, [address] [place] [address], [facility] [phone] * Magnesium (11/20/2024 9:42 AM CDT) Only the most recent of4 resultswithin the time period is included. Magnesium 2.0 1.7 - 2.3 mg/dL 11/20/2024 10:10 AM CDT LABORATORY Blood BLOOD SPECIMEN / Unknown Venipuncture / Unknown 11/20/2024 9:42 AM CDT 11/20/2024 9:50 AM CDT Carlton Sultana MD LAB - BLOOD ORDERABLES Final Result LABORATORY [facility] [address], [address] [place] [address], [facility] [phone] * (ABNORMAL) Basic metabolic panel (11/20/2024 9:42 AM CDT) Only the most recent of2 resultswithin the time period is included. [facility] Signature Sodium 136 135 - 145 mmol/L 11/20/2024 10:10 AM CDT LABORATORY Potassium 4.3 3.4 - 5.3 mmol/L 11/20/2024 10:10 AM CDT LABORATORY Chloride 101 98 - 107 mmol/L 11/20/2024 10:10 AM CDT LABORATORY Carbon Dioxide (CO2) 26 22 - 29 mmol/L 11/20/2024 10:10 AM [facility] Anion Gap 9 7 [...] LAB - BLOOD ORDERABLES Final Result LABORATORY [facility] [address], [address] [place] [address], [facility] [phone] * (ABNORMAL) CBC with platelets (11/20/2024 9:42 [...] [address], [address] [place] [address], [facility] [phone] * (ABNORMAL) UA Macroscopic with reflex to [...] mg/dL 11/19/2024 9:45 AM CDT LABORATORY [facility] [place] Urine 1.018 1.003 - 1.035 11/19/2024 9:45 [...] [address], [address] [place] [address] [phone] * Urine Culture (11/19/2024 9:27 AM CDT) [...] ORDERABLE S Final Result [facility] IDD LABORATORY [facility] Inf. Diseases Di[facility]. Lab [address] [facility], [address] [place] [id number] * EKG 12-lead, tracing only (11/19/2024 9:22 AM CDT) Only the most recent of4 resultswithin the time period is included. Systolic Blood Pressure mmHg RADIOLOGY RESULTS Diastolic Blood Pressure mmHg RADIOLOGY RESULTS Ventricular Rate 86 BPM RAD IOLOGY RESULTS Atrial Rate 86 BPM RADIOLOG Y RESULTS UT Interval 154 ms RADIOLOG Y RESULTS QRS Duration 92 ms RADIOLO GY RESULTS QT 384 ms RADIOLOGY RESULTS QTc 459 ms RADIOLOGY RESULTS P [place] 39 degrees RADIOLOGY RESULTS R AXIS -54 degrees RADIOLOGY RESULTS T [place] 41 degrees RADIOLOGY RESULTS Interpretation ECG Sinus [...] [address], [address] [place] [address], [facility] [phone] * (ABNORMAL) UA with Microscopic reflex to [...] mg/dL 11/18/2024 10:40 AM CDT LABORATORY [facility] [place] Urine 1.016 1.003 - 1.035 11/18/2024 10:40 [...] Urine Culture ordered based on laboratory criteria [facility] MD LAB - URINE ORDERABLES María l Result LABORATORY [facility] [address] floor, [address] [place] [address], [facility] [phone] * Lactic Acid Whole Blood with 1X Repeat in 2 HR when >2 (11/18/2024 10:19 AM CDT) Lactic Acid, Initial 1.4 0.7 - 2.0 mmol/L 11/18/2024 10:31 AM CDT LABORATORY Blood BLOOD SPECIMEN / Unknown Venipuncture / Unknown 11/18/2024 10:19 AM CDT 11/18/2024 10:30 AM CDT [facility] MD LAB - BLOOD ORDERABLES María l Result LABORATORY [facility] [address], [address] [place] [address], [facility] [phone] * (ABNORMAL) CBC with platelets and differential (11/18/2024 10:19 AM CDT) [facility] WBC Count 9.8 4.0 - 11.0 [...] 10:19 AM CDT 11/18/2024 10:31 AM CDT [facility] Michael BROOKS LAB - BLOOD ORDERABLES María l Result LABORATORY [facility] [address], [address] [place] [address], [facility] [phone] * (ABNORMAL) Comprehensive metabolic panel (11/18/2024 10:19 AM CDT) Sodium 136 135 - 145 mmol/L 11/18/2024 10:55 AM [facility] Potassium 3.8 3.4 - 5.3 mmol/L 11/18/2024 10:55 AM [facility] Carbon Dioxide (CO2) 25 22 [...] 10:19 AM CDT 11/18/2024 10:31 AM CDT [facility] Michael BROOKS LAB - BLOOD ORDERABLES María matthew Result LABORATORY [facility] [address], [address] [place] [address], [facility] [phone] * (ABNORMAL) A.M.A. LIPID PANEL (03/08/2010 9:28 AM CDT) [facility] Cholesterol 190 0 - 200 mg/dL [facility] Comment: LDL Cholesterol is the primary guide to therapy. The NCEP recommends further evaluation of: patients with cholesterol <200 mg/dL if additional risk factors are present, cholesterol >240 mg/dL, triglycerides >150 mg/dL, or HDL <40 mg/dL. Triglycerides 159(H) 0 - 150 mg/dL [facility] HDL Cholesterol 44 40 - 110 mg/dL [facility] LDL Cholesterol Calculated 114 0 - 129 mg/dL [facility] Comment: LDL Cholesterol is the primary guide to therapy: LDL-cholesterol goal in high risk patients is <100 mg/dL and in very high risk patients is <70 mg/dL. VLDL-Cholesterol 32(H) 0 - 30 mg/dL [facility] Cholesterol/HDL Ratio 4.4 0.0 - 5.0 [facility] 03/08/2010 9:28 AM CDT 03/08/2010 9:30 AM CDT us Steven Khan MD LABORATORY Final Result [facility] [address] [place] [address] [place] [address] * Stool for colon cancer screening (02/24/2010 7:00 AM CDT) Occult Blood Scn FIT Negative NEG [facility] 02/24/2010 7:00 AM CDT 02/24/2010 9:53 AM CDT us Leslie Fuentes MD LABORATORY Final Resu lt [facility] [address] [place] [address] from Last 3 Months or Most Recently Relevant to Health Maintenance Insurance [facility] MEDICARE ADVANTAGE [facility] MEDICARE ADVANTAGE Advance Directives For more information, please contact: [phone] * Full Code (Latest Code Status on [...] patie nt/ legal decision maker Care Teams Clearance Center Manager Relationship Specialty [place] [address] [place] [address] PCP - General Family Medicine 11/18/24
[2024-12-27] MEDS: lidocaine HCL 2 % JELLY (TOP) STERILE 6 ML UR (01:03)
== END 2024-12-27 02:03 | disposition home or self-care (01) ==
PROVIDERS: Emergency Provider Family Medicine; PCP Family Medicine
DX: N30.91 Cystitis, unspecified with hematuria (principal); Z79.01 Long term (current) use of anticoagulants
CPT/HCPCS: 51702; 81001; 87086; 99283; 99284

== ENCOUNTER 2025-01-08 16:49 | Outpatient (CLI) | payer OTHER, SELFPAY ==
--- NOTE | 2025-01-12 16:03 | PC.SOCIAL ---
Commercial Sales Consultant Consult: SW called patient's daughter and left a voicemail regarding a referral from the clinics.
--- NOTE | 2025-01-20 10:26 | PC.SOCIAL ---
Social Service Consult: SW called patient's daughter and left a voicemail with SW's number to call back for resources/support/questions.
--- NOTE | 2025-01-22 10:49 | PC.SOCIAL ---
Social work consult/late entry: On 01/21/25 social media senior associate spoke to pt's daughter, Patricia Lopez, at length about the pt's living, family, financial, medical and social situations. 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 Social work to follow-up as needed.
--- NOTE | 2025-01-25 15:08 | PC.SOCIAL ---
Social work consult: contact worker lithography spoke to pt's daughter, Patricia Lopze, this afternoon again via phone and provided her with information for [employer], [facility] and [facility] Pt's daughter was very thankful and appreciative of the information. Social work to follow-up as needed.
== END 2025-01-08 16:50 | disposition home or self-care (01) ==
LOC: LKVREF 17:00
PROVIDERS: PCP Family Medicine; Visit Provider Family Medicine
DX: E03.9 Hypothyroidism, unspecified (principal); I10 Essential (primary) hypertension; N39.0 Urinary tract infection, site not specified; B95.2 Enterococcus as the cause of diseases classified elsewhere
CPT/HCPCS: 80048; 84443; 87086; 87186